=== PATIENT | female | born 1980 | race Caucasian/White ===

== ENCOUNTER 2020-06-18 18:13 | Emergency (ER) | payer SELFPAY ==
[2020-06-18 18:16] VITALS: BP 134/87; PULSE 100; RESP 18; TEMP 36.4; O2SAT 99; BMI 22.3
--- NOTE | 2020-06-18 19:27 | ED_ITS ---
HPI - Skin/Abscess/Foreign Bdy General: Chief complaint: Skin/Abscess/Foreign Body Stated complaint: skin abcess Time Seen by Provider: 06/18/20 19:12 Source: patient Limitations: no limitations History of Present Illness: HPI narrative: Ms. Case is a nice 40-year-old female comes in with a swollen tender area on her left ankle. Is been present there for the past 3 days. She states it started off as a pimple and got progressively worse. She denies any fevers, chills or any other focal complaints. Associated symptoms: Deny chills, fever(s), nausea or vomiting Review of Systems Const: Denies: fever(s), chills, body aches, fatigue, malaise or diaphoresis Eyes: Denies: change in vision, blurry vision, photophobia, eye discomfort, eye discharge or eye redness ENMT: Denies: throat pain, odynophagia, hoarseness, swelling of lips/tongue, ear or mastoid pain, ear discharge, change in hearing or nasal discharge Card: Denies: chest pain, palpitations, irregular heart rhythm, edema, lightheadedness, syncope, pre-syncope, dyspnea on exertion or orthopnea Resp: Denies: dyspnea, productive cough, non-productive cough, wheezing, hemoptysis or chest congestion GI: Denies: abdominal pain, nausea, vomiting, hematemesis, coffee ground emesis, heartburn, diarrhea, constipation, GI cramping, hematochezia or melena : Denies: flank pain, dysuria, urinary frequency, urinary urgency or hematuria Musc: Denies: neck pain, back pain, extremity pain, extremity swelling, joint pain, joint swelling, joint redness, joint warmth or joint stiffness Skin/Breast: Reports: erythema, skin tenderness and other (See HPI); Denies: rash or pruritus Neuro: Denies: headache(s), numbness in extremities, weakness in extremities, sensory changes, lack of coordination, difficulty walking, dizziness, vertigo, confusion, Slurred speech present or seizure-like activity Jacky/Lymph: Denies: easy bruising, easy bleeding, petechiae, purpura or enlarged lymph nodes All/Imm: Denies: urticaria, throat swelling, tongue swelling, facial swelling or acute wheezing PFS ED PFSH: Medical History (Updated 06/18/20 @ 20:02 by Nicolette Hand) Crohn's disease Physical Exam Const: COMMON NORMALS: no acute distress, patient oriented x3, no limitations, healthy appearing and well nourished GENERAL APPEARANCE: cooperative, well kempt and well developed HENMT: COMMON NORMALS: normocephalic, atraumatic, external ears normal, EAC's normal and Normal external nose present HEAD & SCALP: normal to inspection, normocephalic and atraumatic FACE & SINUS: normal facial exam and face symmetric NOSE: Normal external nose present and Normal nares present EXTERNAL EAR: Yes external ears normal EXTERNAL AUDITORY CANAL: EAC's normal MOUTH: Normal oral and palatal mucosa present, lip normal and tongue normal Eye: COMMON NORMALS: Equal, round and reactive pupils present and conjunctivae normal GENERAL EYE: appearance normal, both eyes and all related structures ALIGNMENT: Yes alignment normal PERIORBITAL: periorbital findings normal EYELID: eyelids normal CONJUNCTIVA: Yes conjunctivae normal SCLERA: scler ae normal PUPIL: Yes Equal, round and reactive pupils present Neck/C-Spine: COMMON NORMALS: full ROM, no lymphadenopathy, supple, no meningeal signs and no JVD GENERAL: Yes normal visual inspection and Yes trachea midline Chest: COMMONS NORMALS: normal inspection of the chest and normal palpation of entire chest wall Resp: COMMON NORMALS: normal respiratory effort, No retractions, No use of accessory muscles and clear to auscultation bilaterally EFFORT & INSPECTION: Yes able to speak in complete sentences and Yes symmetric chest movement AUSCULTATION: clear to auscultation bilaterally, no crackles, no rales, no rhonchi and no wheezes Cardio: COMMON NORMALS: no JVD, regular rate, regular rhythm, S1 normal heart sound present and S2 normal heart sound present RATE: regular rate RHYTHM: regular rhythm HEART SOUNDS: S1 normal heart sound present, S2 normal heart sound present, no click, no gallops, no murmurs, no rubs and abnormal split S2 GI: COMMON NORMALS: Soft to palpation and No hepatosplenomegaly present PALPATION: Yes Soft to palpation, No Tenderness to palpation present (GI), No Guarding due to palpation present (GI), No Rigid due to palpation, Yes No hepatosplenomegaly present, No Hernia present, No Palpable mass present and No Pulsatile mass present : COMMON NORMALS: Yes no CVA tenderness BLADDER/KIDNEY EXAM: Yes no CVA tenderness EXTERNAL FEMALE EXAM: No Hernia present Back/Pelvis: COMMON NORMALS: no CVA tenderness, thoracic and lumbar spine normal to inspection, no thoracic nor lumbar tenderness and thoraco-lumbar ROM normal Extremity: COMMON NORMALS: normal to inspection, full ROM, capillary refill normal, no joint enlargement, no clubbing, cyanosis or edema and no calf tend erness Neuro: COMMON NORMALS: patient oriented x3, CN's II-XII intact bilaterally, moves all extremities, no focal motor deficits and no sensory deficits noted MENINGEAL SIGNS: Yes no meningeal signs SPEECH: speech normal Psych: COMMON NORMALS: mental status grossly normal, Normal thought process present, cooperative, normal affect, speech normal and activity/motor behavior normal APPEARANCE: Yes well kempt SPEECH: Yes normal speech THOUGHT PROCESS: Normal thought process present Skin: COMMON NORMALS: turgor normal, no jaundice, no petechiae and no mottling GENERAL SKIN EXAM: turgor normal Procedures Abscess I/D Site: lower extremity Side (if applicable): right Local Anesthetic: lidocaine 1% Amount of anesthesia used (mL): 4 Technique: incised with #11 blade Amount of fluid expressed (mL): 25 Packing used?: iodoform Course Vital Signs: Vital signs: Vital Signs Temperature 97.6 F 06/18/20 18:16 Pulse Rate 100 06/18/20 18:16 Respiratory Rate 18 06/18/20 18:16 Blood Pressure 134/87 06/18/20 18:16 Pulse Oximetry 99 06/18/20 18:16 MDM - Skin/Abscess/Foreign Bdy MDM Narrative: Medical decision making narrative: Patient tolerated procedure well there were no complications. Gave instructions to return in 2 days for wound recheck and she states she understands this and will follow-up as directed or return if needed. This time the patient is feeling better and ready to go home. Discharge Plan Discharge Patient Disposition: Home Clinical Impression: Abscess of skin or subcutaneous tissue Qualifiers: Site of cutaneous abscess: extremity Site of cutaneous abscess of extremity: lower extremity Laterality: right Qualified Code(s): L02.415 - Cutaneous abscess of right lower limb Condition: Stable Prescriptions: [place] 5-325 mg tablet 1 tab PO Q6H PRN (Reason: pain) 5 Days Qty: 12 RF: 0 Zofran 4 mg tablet 4 mg PO Q6H PRN (Reason: nausea and vomiting) Qty: 20 RF: 0 Bactrim DS 800-160 mg tablet 2 tab PO BID 10 Days Qty: 40 RF: 0 Discharge Orders: Discharge Order (Routine); Ordered 06/18/20 Ordered By: Nicolette Hand Referrals: Familia Kwon FNP [Primary Care Provider] - Discharge Diet: Advance as tolerated Discharge Activity: Increase activity as tolerated Patient Instructions: Abscess (ED) Activity Restrictions/Additional Instructions: Please return to the ER immediately for any of the signs or symptoms listed on your discharge instruction sheets, worsening/changing of your symptoms, you are not getting better as quickly as expected, or for ANY other cause or concerns. Please return to the ER in 2 days for recheck of your wound. Return sooner for fever, increased pain, spreading of the redness on your ankle, or for any other cause for concern. Coding Level of Care Code ED Remediation Consultant for Augusto Fwsherwin Exam Comprehensive
[2020-06-18 20:04] VITALS: BP 122/86; PULSE 100; RESP 20
[2020-06-18] MEDS: HYDROcodone-acetaminophen 5-325 mg Tablet 1 TAB PO (20:19)
[2020-06-18] MEDS: ondansetron 4 MG Tablet PO (20:20)
[2020-06-18] MEDS: sulfamethoxazole-trimeth DS 160-800 mg Tablet 2 TAB PO (20:20)
[2020-06-18] MEDS: tetanus-dipt-pertussis 0.5 mL SDV IM (20:35)
[2020-06-18 20:49] VITALS: BP 121/72; PULSE 88; RESP 20; TEMP 36.6; O2SAT 96
== END 2020-06-18 20:50 | disposition home or self-care (01) ==
PROVIDERS: Emergency Provider Emergency Medicine; PCP Nurse Practitioner Family
DX: L02.415 Cutaneous abscess of right lower limb (principal); Z23 Encounter for immunization
CPT/HCPCS: 10060; 12345; 90471; 90715; 99281; 99283; Q0162

== ENCOUNTER 2020-06-20 13:50 | Emergency (ER) | payer SELFPAY ==
[2020-06-20 14:00] VITALS: BP 116/75; PULSE 97; RESP 18; TEMP 36.5; O2SAT 98; BMI 22.3
--- NOTE | 2020-06-20 14:45 | W.ED.WOUNDLC ---
HPI - Wound/Laceration General: Chief Complaint: Wound/Laceration Stated Complaint: wound check Time Seen by Provider: 06/20/20 14:41 Source: patient Limitations: no limitations History of Present Illness: HPI narrative: 40-year-old female who had abscess drained here 2 days ago on her right ankle. Patient states she was told to return for wound check. She did have a packing placed. She had no fever and minimal pain. She currently on Bactrim. Denies any vomiting. She states she is continued to have draining from the wound. Associated symptoms: Denies chills, fever(s), nausea or vomiting Review of Systems Const: Denies: fever(s), chills, body aches or change in appetite Eyes: Denies: blurry vision or eye discomfort ENMT: Denies: throat pain or dental pain Card: Denies: chest pain Resp: Denies: dyspnea GI: Denies: abdominal pain, nausea, vomiting or diarrhea : Denies: dysuria Musc: Denies: neck pain or back pain Skin/Breast: Denies: rash Neuro: Denies: headache(s) Psych: Denies: depression Jacky/Lymph: Denies: easy bruising All/Imm: Denies: urticaria PFSH ED PFSH: Medical History (Updated 06/20/20 @ 14:45 by Kris Hunt MD) Crohn's disease Physical Exam Const: COMMON NORMALS: no acute distress, patient oriented x3 and healthy appearing HENMT: COMMON NORMALS: normocephalic and atraumatic HEAD & SCALP: normocephalic and atraumatic Eye: COMMON NORMALS: Equal, round and reactive pupils present and EOMs intact bilaterally PUPIL: Yes Equal, round and reactive pupils present Neck/C-Spine: COMMON NORMALS: full ROM and supple Chest: COMMONS NORMALS: normal inspection of the chest and normal palpation of entire chest wall Resp: COMMON NORMALS: normal respiratory effort, No retractions, No use of accessory muscles and clear to auscultation bilaterally AUSCULTATION: clear to auscultation bilaterally Cardio: COMMON NORMALS: regular rate, regular rhythm and No murmurs present (Cardio) RATE: regular rate RHYTHM: regular rhythm GI: COMMON NORMALS: Normal to inspection, nondistended, normoactive bowel sounds present, Soft to palpation, non-tender and no masses PALPATION: Yes Soft to palpation Extremity: COMMON NORMALS: normal to inspection and full ROM Neuro: COMMON NORMALS: patient oriented x3, moves all extremities and no focal motor deficits Psych: COMMON NORMALS: mental status grossly normal, Normal thought process present and cooperative THOUGHT PROCESS: Normal thought process present Skin: COMMON NORMALS: no rashes or lesions noted NARRATIVE SKIN EXAM: Abscess to right ankle and has packing in place. I removed the packing wound is open and well-appearing. She has minimal erythema and minimal drainage at this point. GENERAL SKIN EXAM: no rashes or lesions noted Course Vital Signs: Vital signs: Vital Signs Temperature 97.7 F 06/20/20 14:00 Pulse Rate 97 06/20/20 14:00 Respiratory Rate 18 06/20/20 14:00 Blood Pressure 116/75 06/20/20 14:00 Pulse Oximetry 98 06/20/20 14:00 MDM - Wound/Laceration MDM Narrative: Medical decision making narrative: Patient presents with wound check for an abscess. I did remove the packing and will leave it open at this time. She is to do warm soaks and to continue her Bactrim. Wound is healing well and she is to return to the ER if worsening. She understands and agrees to plan. Discharge Plan Discharge Patient Disposition: Home Clinical Impression: Abscess, Encounter for wound re-check Condition: Stable Prescriptions: No [place] 5-325 mg tablet 1 tab PO Q6H PRN (Reason: pain) 5 Days Qty: 12 RF: 0 Zofran 4 mg tablet 4 mg PO Q6H PRN (Reason: nausea and vomiting) Qty: 20 RF: 0 Bactrim DS 800-160 mg tablet 2 tab PO BID 10 Days Qty: 40 RF: 0 Discharge Orders: Discharge Order (Routine); Ordered 06/20/20 Ordered By: Kris Hunt Referrals: Familia Kwon FNP [Primary Care Provider] - 1-3 days Discharge Diet: Advance as tolerated Discharge Activity: Resume usual activity Patient Instructions: Abscess (ED) Coding Level of Care Code ED President [employer] Consulting for Augusto Gonzalez
== END 2020-06-20 14:58 | disposition home or self-care (01) ==
PROVIDERS: Emergency Provider Emergency Medicine; PCP Nurse Practitioner Family
DX: Z48.00 Encounter for change or removal of nonsurgical wound dressing (principal); L02.415 Cutaneous abscess of right lower limb
CPT/HCPCS: 12345; 99281

== ENCOUNTER 2020-08-17 20:21 | Emergency (ER) | payer SELFPAY ==
[2020-08-17 21:00] VITALS: BP 106/63; PULSE 102; RESP 14; TEMP 36.4; O2SAT 97; BMI 19.9
[2020-08-17] MEDS: sulfamethoxazole-trimeth DS 160-800 mg Tablet 1 TAB PO (22:43)
--- NOTE | 2020-08-17 22:50 | ED_ITS ---
HPI - Skin/Abscess/Foreign Bdy General: Chief complaint: Skin/Abscess/Foreign Body Stated complaint: spiderbite Time Seen by Provider: 08/17/20 22:33 History of Present Illness: HPI narrative: She thinks she had a spider bite left upper thigh area near her labia. Says she has a lot of brown recluse is in her house she had a spider bite before. Has been present couple days very sore not really draining MD complaint: insect bite/sting Onset (ago): day(s) Tetanus up to date: yes Location: LLE Severity: mild Severity scale (1-10): 2 Quality: aching Pain Consistency: constant Relieving factors: immobilization Exacerbating factors: movement Context: none Associated symptoms: Reports no associated symptoms; Deny chills or fever(s) Treatments prior to arrival: none Review of Systems Const: Denies: fever(s), chills or body aches Skin/Breast: Reports: other (Points possible bite to left upper groin area. Says she has lot of brown recluse is her house and she thinks that the possibly got bit. Is been present couple days not really draining but is red and very tender.) PFS ED PFSH: Medical History (Updated 08/17/20 @ 22:39 by YUSUF Bailey) Crohn's disease Physical Exam Const: COMMON NORMALS: no acute distress Skin: GENERAL SKIN EXAM: Excoriation (Left upper thigh area near the labia about quarter size more rectangular in shape very red and angry looking there is no abscess or swelling behind it almost resembles a very angry chancre patient denies any chance have an STD. No drainage from it very shiny and wet.) Course Vital Signs: Vital signs: Vital Signs Temperature 97.5 F L 08/17/20 21:00 Pulse Rate 102 H 08/17/20 21:00 Respiratory Rate 14 08/17/20 21:00 Blood Pressure 106/63 08/17/20 21:00 Pulse Oximetry 97 08/17/20 21:00 Discharge Plan Discharge Patient Disposition: Home Clinical Impression: Cellulitis Qualifiers: Site of cellulitis: extremity Site of cellulitis of extremity: lower extremity Laterality: left Qualified Code(s): L03.116 - Cellulitis of left lower limb Condition: Stable Prescriptions: New Bactrim DS 800-160 mg tablet 1 tab PO BID 7 Days Qty: 14 RF: 0 tramadol 50 mg tablet 50 mg PO TID PRN (Reason: pain) Qty: 10 RF: 0 No Action Zofran 4 mg tablet 4 mg PO Q6H PRN (Reason: nausea and vomiting) Qty: 20 RF: 0 Discharge Orders: Discharge Order (Routine); Ordered 08/17/20 Ordered By: Xavier Berg Referrals: Familia Kwon FNP [Primary Care Provider] - Discharge Diet: Usual diet Discharge Activity: Increase activity as tolerated Patient Instructions: Cellulitis (ED), Brown Recluse Spider Bite (ED) Activity Restrictions/Additional Instructions: Follow-up with medical provider as directed. Take medications as prescribed. Return to the ER or your medical provider if condition worsens. Please read and understand discharge instructions. If any questions ask please. Either [facility] for primary care appointment are with the [facility] family practice clinic. Discharge Date/Time: 08/17/20 23:09 Coding Level of Care Code ED Core Placer for Chg Fwd Exam Expanded Problem Focused
== END 2020-08-17 23:09 | disposition home or self-care (01) ==
PROVIDERS: Emergency Provider Nurse Practitioner Family; PCP Nurse Practitioner Family
DX: L03.116 Cellulitis of left lower limb (principal)
CPT/HCPCS: 12345; 99281; 99283

== ENCOUNTER → 2020-11-12 17:48 | Outpatient (BNVA) | payer OTHER, SELFPAY | PROVIDERS: PCP Nurse Practitioner Family; Visit Provider Emergency Medicine | DX: Z20.828 Contact with and (suspected) exposure to other viral communicable diseases (principal); R05 Cough; J32.1 Chronic frontal sinusitis | CPT/HCPCS: 87635 ==

== ENCOUNTER 2021-04-02 16:30 | Emergency (ER) | payer SELFPAY ==
[2021-04-02 16:45] VITALS: BP 95/67; PULSE 85; RESP 13; O2SAT 100; BMI 19.7
--- NOTE | 2021-04-02 16:49 | XRR_ITS ---
PROCEDURE INFORMATION: Exam: XR Chest Exam date and time: 04/02/2021 4:50 PM Age: 41 years old Clinical indication: Cough TECHNIQUE: Imaging protocol: XR of the chest. Views: 1 view. COMPARISON: No relevant prior studies available. FINDINGS: Lungs: Unremarkable. No consolidation. Pleural spaces: Unremarkable. No pleural effusion. No pneumothorax. Heart/Mediastinum: Unremarkable. No cardiomegaly. Bones/joints: Unremarkable. XR/XR chest 1V portable [id number] IMPRESSION: No acute findings.
--- NOTE | 2021-04-02 16:49 | ECG_ITS ---
[facility] Test Date: 2021-04-02 Pat Name: Nette Marks Department: Room: Gender: Female [employer] Librarian: : 1980 Requested By: Elias Melton Order Number: [id number] Sharon MD: YANI ALTMAN Measurements Intervals [place] Rate: 79 P: 66 IN: 116 QRS: 74 QRSD: 76 T: 70 QT: 378 QTc: 435 Interpretive Statements SINUS RHYTHM WITH SHORT IN INTERVAL POSSIBLE LEFT ATRIAL ENLARGEMENT [-0.1mV P WAVE IN V1/V2] No previous ECG available for comparison Electronically Signed On 04-02-2021 20:18:30 CDT by YANI ALTMAN [id number]
--- NOTE | 2021-04-02 16:50 | ED_ITS ---
Documented by User: Elias Melton MD 04/02/21 17:59 HPI - Chest Pain General: Chief Complaint: Chest Pain Stated Complaint: CHEST PAIN Time Seen by Provider: 04/02/21 16:46 History of Present Illness: HPI narrative: This patient is a 41-year-old female who presents to the emergency room for atypical type chest pain issues. Patient describes shortness when she takes a deep breath and has a long history anxiety for which she has been to take hydroxyzine for. Patient states she does not take it because it makes her go to sleep. Patient describes numbness and tingling to her fingers. Patient states that she has had this intermittently for some time but seem to be worse over the past day. Patient states it is pinpoint underneath the left breast is sharp when she takes a deep breath. Will do medical evaluation treat as needed. complaint: chest pain Onset: during rest Pain location: left chest Pain radiation: none Severity: similar to previous episodes Quality: sharp Relieving factors: nothing Associated symptoms: Deny abdominal pain, dyspnea, fever(s), nausea, palpitations or vomiting Review of Systems General: Reports: 10 or more systems reviewed and unremarkable except in HPI and below Const: Denies: fever(s), chills, body aches or fatigue Eyes: Denies: change in vision or blurry vision ENMT: Denies: throat pain, hoarseness or mouth pain Card: Reports: chest pain; Denies: palpitations, irregular heart rhythm, edema, swelling of feet/ankles or lightheadedness Resp: Denies: dyspnea, productive cough, non-productive cough, wheezing or pain on inspiration GI: Denies: abdominal pain, nausea or vomiting : Denies: flank pain, difficulty voiding, dysuria, urinary frequency, urinary urgency or urinary hesitancy Musc: Denies: neck pain, back pain, extremity pain, extremity swelling, joint pain, joint swelling, joint redness, joint warmth or limited range of motion Skin/Breast: Denies: rash, pruritus, erythema or skin tenderness Neuro: Denies: headache(s), numbness in extremities or weakness in extremities Psych: Denies: anxiety or depression PFSH ED PFSH: Medical History Anxiety Crohn's disease Social History Smoking and tobacco status: current every day smoker cigarettes Packs smoked per day: 0.25 Alcohol intake: never History of recent travel: No Female Reproductive History: Spontaneous abortions: No Physical Exam Const: COMMON NORMALS: no acute distress, average body habitus, patient oriented x3, no limitations, healthy appearing, alert and well nourished HENMT: COMMON NORMALS: normocephalic, atraumatic, hearing grossly normal bilaterally, external ears normal, EAC's normal, TM's normal bilaterally, Normal external nose present, Normal nasal mucous membranes and turbinates present, moist oral mucous membranes, oropharynx normal, dentition normal and gingiva normal HEAD & SCALP: normocephalic and atraumatic NOSE: Normal external nose present and Normal nasal mucous membranes and turbinates present EXTERNAL EAR: Yes external ears normal EXTERNAL AUDITORY CANAL: EAC's normal TYMPANIC MEMBRANE: TM's normal bilaterally Neck/C-Spine: COMMON NORMALS: full ROM, no lymphadenopathy, supple, no meningeal signs, no JVD, Thyroid normal and No carotid bruits THYROID: Thyroid normal Chest: COMMONS NORMALS: normal inspection of the chest, normal palpation of entire chest wall, normal inspection of the breasts and normal palpation of the breasts Breast/axilla inspection: Yes normal inspection of the breasts BREAST/AXILLA PALPATION: Yes normal palpation of the breasts Resp: COMMON NORMALS: normal respiratory effort, No retractions, No use of accessory muscles, clear to auscultation bilaterally and percussion normal AUSCULTATION: clear to auscultation bilaterally PERCUSSION: percussion normal Cardio: COMMON NORMALS: no JVD, regular rate, regular rhythm, S1 normal heart sound present, S2 normal heart sound present, No gallops present (Cardio), No clicks present (Cardio), No murmurs present (Cardio), No rub (Cardio) and Peripheral pulses 2+ throughout RATE: regular rate RHYTHM: regular rhythm HEART SOUNDS: S1 normal heart sound present and S2 normal heart sound present PERIPHERAL PULSES: Peripheral pulses 2+ throughout GI: COMMON NORMALS: Normal to inspection, nondistended, normoactive bowel sounds present, Soft to palpation, non-tender, No hepatosplenomegaly present, no masses and no bruits PALPATION: Yes Soft to palpation and Yes No hepatosplenomegaly present : COMMON NORMALS: Yes no CVA tenderness, Yes normal external appearance, Yes normal appearance of the vagina, Yes normal appearance of the cervix, Yes normal bimanual exam, Yes No adnexal tenderness and Yes no masses BLADDER/KIDNEY EXAM: Yes no CVA tenderness BIMANUAL EXAM - VAGINA & UTERUS: Yes normal bimanual exam Back/Pelvis: COMMON NORMALS: no CVA tenderness, thoracic and lumbar spine normal to inspection, no thoracic nor lumbar tenderness, thoraco-lumbar ROM normal and straight leg raise negative bilaterally Extremity: COMMON NORMALS: normal to inspection, full ROM, capillary refill normal, no joint enlargement, no clubbing, cyanosis or edema, no calf tenderness and no pedal edema Neuro: COMMON NORMALS: patient oriented x3 SENSORIUM/ORIENTATION: Yes alert MENINGEAL SIGNS: Yes no meningeal signs Course Consultations: Consultation #1: Care transferred to Dr. Gamez for shift change Time: 17:58 Vital Signs: Vital signs: Vital Signs Pulse Rate 96 04/02/21 20:03 Respiratory Rate 20 H 04/02/21 20:03 Blood Pressure 98/64 04/02/21 20:03 Pulse Oximetry 89 L 04/02/21 20:03 MDM - Chest Pain Lab Data: Labs: Lab Results 04/02/21 04/02/21 04/02/21 Range/Units 16:54 18:05 18:05 WBC 8.5 (4.0-10.0) 10^3/ uL RBC 4.90 (4.1-5.3) 10^6/u L Hgb 14.1 (11.5-15.3) g/dL Hct 42.4 (37.0-47.0) % MCV 86.5 (81-99) fL MCH 28.8 (28.0-34.0) pg MCHC 33.3 (30.0-36.0) g/dL RDW 14.9 (12.1-15.1) % Plt Count 254 (130-400) 10^3/c mm MPV 10.0 (7.4-10.4) fL Neut % (Auto) 48.9 % Lymph % (Auto) 39.5 % Arthur % (Auto) 6.6 % Eos % (Auto) 4.1 % Baso % (Auto) 0.7 % Neut # (Auto) 4.13 (1.8-7.7) 10^3/u L Lymph # (Auto) 3.3 (0.8-4.8) 10^3/u L Arthur # (Auto) 0.6 (0.2-0.9) 10^3/u L Eos # (Auto) 0.4 (0.0-0.8) 10^3/u L Baso # (Auto) 0.1 (0.0-0.1) 10^3/u L Nucleated RBC % (a uto) 0 % Nucleated RBCs # 0.0 /100WBC D-Dimer Cancelled Specimen Type Arterial Sample Site Radial, left ABG pH 7.45 (7.35-7.45) ABG pCO2 38.0 (35-45) mmHg ABG pO2 205.0 H (80.0-100.0) mmH g ABG HCO3 26.5 H (22-26) mmol/L ABG O2 Saturation 99.9 ABG Base Excess 2.5 H (-2.0-2.0) mmol/ L Aashish Test Pos A-a O2 Gradient 0.0 L (5-10) mmHg Hematocrit 41.2 (37-47) % Hgb O2 Saturation 97.0 (95-100) % Carboxyhemoglobin 1.9 (0.4-20.1) %THgb Methemoglobin 1.0 (0.4-1.5) % Total Hemoglobin 13.4 (12-16) g/dL Sodium 140.0 (131-143) mmol/L Potassium 4.1 (3.5-5.0) mmol/L Glucose 104.0 (70-115) mg/dL Ionized Calcium 1.2 (1.1-1.4) mmol/L O2 Delivery Device Nc FiO2 36.0 % Secondary Connector Armature ID Monro Chloride (98-107) mmol/L Carbon Dioxide (22-29) mmol/L Anion Gap (5-19) BUN (6-20) mg/dL Creatinine (0.5-0.9) mg/dL GFR Calculation (90-130) mL/min Calculated Osmolal ity (285-295) mOsm/k g Calcium (8.5-10.5) mg/dL Total Bilirubin (0.15-1.2) mg/dL AST (0-32) U/L ALT (0-33) U/L Alkaline Phosphata se (35-105) IU/L Troponin T Baselin e (0-10) ng/L Total Protein (6.6-8.7) g/dL Albumin (3.5-5.2) g/dL Globulin (1.3-4.6) g/dL Urine Color (Yellow) Urine Appearance (CLEAR) Urine pH (5-7) Ur Specific Gravit y (1.005-1.030) Urine Protein (Negative) Urine Glucose (UA) (Normal) Urine Ketones (Negative) Urine Blood (Negative) Urine Nitrate (Negative) Urine Bilirubin (Negative) Urine Urobilinogen (Negative) mg/dL Ur Leukocyte Josy ase (Negative) Urine Opiates Scre en (Negative) ng/mL Ur Barbiturates Sc reen (Negative) ng/mL Ur Phencyclidine S crn (Negative) ng/mL Ur Amphetamines Sc reen (Negative) ng/mL U Benzodiazepines Scrn (Negative) ng/mL Urine Cocaine Scre en (Negative) ng/mL U Marijuana (THC) Screen (Negative) ng/mL Ethyl Alcohol (0-10) mg/dL 04/02/21 04/02/21 04/02/21 Range/Units 18:05 18:05 18:09 WBC (4.0-10.0) 10^3/ uL RBC (4.1-5.3) 10^6/u L Hgb (11.5-15.3) g/dL Hct (37.0-47.0) % MCV (81-99) fL MCH (28.0-34.0) pg MCHC (30.0-36.0) g/dL RDW (12.1-15.1) % Plt Count (130-400) 10^3/c mm MPV (7.4-10.4) fL Neut % (Auto) % Lymph % (Auto) % Arthur % (Auto) % Eos % (Auto) % Baso % (Auto) % Neut # (Auto) (1.8-7.7) 10^3/u L Lymph # (Auto) (0.8-4.8) 10^3/u L Arthur # (Auto) (0.2-0.9) 10^3/u L Eos # (Auto) (0.0-0.8) 10^3/u L Baso # (Auto) (0.0-0.1) 10^3/u L Nucleated RBC % (a uto) % Nucleated RBCs # /100WBC D-Dimer Specimen Type Sample Site ABG pH (7.35-7.45) ABG pCO2 (35-45) mmHg ABG pO2 (80.0-100.0) mmH g ABG HCO3 (22-26) mmol/L ABG O2 Saturation ABG Base Excess (-2.0-2.0) mmol/ L Aashish Test A-a O2 Gradient (5-10) mmHg Hematocrit (37-47) % Hgb O2 Saturation (95-100) % Carboxyhemoglobin (0.4-20.1) %THgb Methemoglobin (0.4-1.5) % Total Hemoglobin (12-16) g/dL Sodium 137 (131-143) mmol/L Potassium 4.2 (3.5-5.0) mmol/L Glucose 105 (70-115) mg/dL Ionized Calcium (1.1-1.4) mmol/L O2 Delivery Device FiO2 % Secondary Connector Armature ID Chloride 101 (98-107) mmol/L Carbon Dioxide 27 (22-29) mmol/L Anion Gap 13.2 (5-19) BUN 16 (6-20) mg/dL Creatinine 0.5 (0.5-0.9) mg/dL GFR Calculation 136.6 H (90-130) mL/min Calculated Osmolal ity 286 (285-295) mOsm/k g Calcium 8.4 L (8.5-10.5) mg/dL Total Bilirubin 0.2 (0.15-1.2) mg/dL AST 24 (0-32) U/L ALT 16 (0-33) U/L Alkaline Phosphata se 91 (35-105) IU/L Troponin T Baselin e 6 (0-10) ng/L Total Protein 6.7 (6.6-8.7) g/dL Albumin 4.1 (3.5-5.2) g/dL Globulin 2.6 (1.3-4.6) g/dL Urine Color Straw (Yellow) Urine Appearance Clear (CLEAR) Urine pH 5 (5-7) Ur Specific Gravit y 1.025 (1.005-1.030) Urine Protein Neg (Negative) Urine Glucose (UA) Norm (Normal) Urine Ketones Negative (Negative) Urine Blood Neg (Negative) Urine Nitrate Negative (Negative) Urine Bilirubin 1+ H (Negative) Urine Urobilinogen 1 H (Negative) mg/dL Ur Leukocyte Josy ase Negative (Negative) Urine Opiates Scre en (Negative) ng/mL Ur Barbiturates Sc reen (Negative) ng/mL Ur Phencyclidine S crn (Negative) ng/mL Ur Amphetamines Sc reen (Negative) ng/mL U Benzodiazepines Scrn (Negative) ng/mL Urine Cocaine Scre en (Negative) ng/mL U Marijuana (THC) Screen (Negative) ng/mL Ethyl Alcohol < 10 (0-10) mg/dL 04/02/21 Range/Units 18:09 WBC (4.0-10.0) 10^3/ uL RBC (4.1-5.3) 10^6/u L Hgb (11.5-15.3) g/dL Hct (37.0-47.0) % MCV (81-99) fL MCH (28.0-34.0) pg MCHC (30.0-36.0) g/dL RDW (12.1-15.1) % Plt Count (130-400) 10^3/c mm MPV (7.4-10.4) fL Neut % (Auto) % Lymph % (Auto) % Arthur % (Auto) % Eos % (Auto) % Baso % (Auto) % Neut # (Auto) (1.8-7.7) 10^3/u L Lymph # (Auto) (0.8-4.8) 10^3/u L Arthur # (Auto) (0.2-0.9) 10^3/u L Eos # (Auto) (0.0-0.8) 10^3/u L Baso # (Auto) (0.0-0.1) 10^3/u L Nucleated RBC % (a uto) % Nucleated RBCs # /100WBC D-Dimer Specimen Type Sample Site ABG pH (7.35-7.45) ABG pCO2 (35-45) mmHg ABG pO2 (80.0-100.0) mmH g ABG HCO3 (22-26) mmol/L ABG O2 Saturation ABG Base Excess (-2.0-2.0) mmol/ L Aashish Test A-a O2 Gradient (5-10) mmHg Hematocrit (37-47) % Hgb O2 Saturation (95-100) % Carboxyhemoglobin (0.4-20.1) %THgb Methemoglobin (0.4-1.5) % Total Hemoglobin (12-16) g/dL Sodium (131-143) mmol/L Potassium (3.5-5.0) mmol/L Glucose (70-115) mg/dL Ionized Calcium (1.1-1.4) mmol/L O2 Delivery Device FiO2 % Secondary Connector Armature ID Chloride (98-107) mmol/L Carbon Dioxide (22-29) mmol/L Anion Gap (5-19) BUN (6-20) mg/dL Creatinine (0.5-0.9) mg/dL GFR Calculation (90-130) mL/min Calculated Osmolal ity (285-295) mOsm/k g Calcium (8.5-10.5) mg/dL Total Bilirubin (0.15-1.2) mg/dL AST (0-32) U/L ALT (0-33) U/L Alkaline Phosphata se (35-105) IU/L Troponin T Baselin e (0-10) ng/L Total Protein (6.6-8.7) g/dL Albumin (3.5-5.2) g/dL Globulin (1.3-4.6) g/dL Urine Color (Yellow) Urine Appearance (CLEAR) Urine pH (5-7) Ur Specific Gravit y (1.005-1.030) Urine Protein (Negative) Urine Glucose (UA) (Normal) Urine Ketones (Negative) Urine Blood (Negative) Urine Nitrate (Negative) Urine Bilirubin (Negative) Urine Urobilinogen (Negative) mg/dL Ur Leukocyte Josy ase (Negative) Urine Opiates Scre en Negative (Negative) ng/mL Ur Barbiturates Sc reen Negative (Negative) ng/mL Ur Phencyclidine S crn Negative (Negative) ng/mL Ur Amphetamines Sc reen Positive H (Negative) ng/mL U Benzodiazepines Scrn Negative (Negative) ng/mL Urine Cocaine Scre en Negative (Negative) ng/mL U Marijuana (THC) Screen Positive H (Negative) ng/mL Ethyl Alcohol (0-10) mg/dL EKG Data^: EKG 1: Attestation: I personally reviewed and interpreted this EKG as follows: EKG interpretation date: 04/02/21 EKG interpretation time: 17:00 Prior EKG tracings: not available for review Interpretation: Normal sinus rhythm heart rate 79 nonspecific EKG changes. Discharge Plan Discharge Patient Disposition: Home Clinical Impression: Anxiety, Atypical chest pain Condition: Stable Prescriptions: New ketorolac 10 mg tablet 10 mg PO TID PRN (Reason: pain) Qty: 10 RF: 0 No Action hydroxyzine HCl 25 mg tablet 25 mg PO TID PRN (Reason: anxiety) Qty: 20 RF: 0 Discharge Orders: Discharge ED (Routine); Ordered 04/02/21 Ordered By: Jon Gamez Referrals: Familia Kwon FNP [Primary Care Provider] - 4-7 days Discharge Diet: Advance as tolerated Discharge Activity: Resume usual activity Patient Instructions: Chest Pain (ED) Activity Restrictions/Additional Instructions: Medication as directed for chest wall pain. You may return for worsening pain despite treatment, shortness of breath, fever greater than 100, vomiting, other concerning symptoms. The use of stimulant medications may exacerbate chest pain. Stand Alone Forms: Work/School Release Coding Level of Care Code ED Bin Worker for Chg Fwd Exam Comprehensive Documented by User: Jon Gamez DO 04/02/21 20:37 HPI - Chest Pain General: Chief Complaint: Chest Pain Stated Complaint: CHEST PAIN Time Seen by Provider: 04/02/21 16:46 PFSH ED PFSH: Medical History Anxiety Crohn's disease Social History Smoking and tobacco status: current every day smoker cigarettes Packs smoked per day: 0.25 Alcohol intake: never History of recent travel: No Course Vital Signs: Vital signs: Vital Signs Pulse Rate 96 04/02/21 20:03 Respiratory Rate 20 H 04/02/21 20:03 Blood Pressure 98/64 04/02/21 20:03 Pulse Oximetry 89 L 04/02/21 20:03 MDM - Chest Pain MDM Narrative: Medical decision making narrative: 41-year-old female presents with atypical chest pain. She was checked out to me by Dr. Melton at shift change. Heart rate 79. Oxygen saturation 99. Her EKG shows a normal sinus rhythm with normal axis. She has been nontachycardic. Nonhypoxic. Her labs are normal including a troponin of 6. Her urine is positive for marijuana and amphetamines. Her pain is reproducible to some degree. She is very anxious as well, and this may be playing a role. She will be placed on anti-inflammatories Lab Data: Labs: Lab Results 04/02/21 04/02/21 04/02/21 Range/Units 16:54 18:05 18:05 WBC 8.5 (4.0-10.0) 10^3/ uL RBC 4.90 (4.1-5.3) 10^6/u L Hgb 14.1 (11.5-15.3) g/dL Hct 42.4 (37.0-47.0) % MCV 86.5 (81-99) fL MCH 28.8 (28.0-34.0) pg MCHC 33.3 (30.0-36.0) g/dL RDW 14.9 (12.1-15.1) % Plt Count 254 (130-400) 10^3/c mm MPV 10.0 (7.4-10.4) fL Neut % (Auto) 48.9 % Lymph % (Auto) 39.5 % Arthur % (Auto) 6.6 % Eos % (Auto) 4.1 % Baso % (Auto) 0.7 % Neut # (Auto) 4.13 (1.8-7.7) 10^3/u L Lymph # (Auto) 3.3 (0.8-4.8) 10^3/u L Arthur # (Auto) 0.6 (0.2-0.9) 10^3/u L Eos # (Auto) 0.4 (0.0-0.8) 10^3/u L Baso # (Auto) 0.1 (0.0-0.1) 10^3/u L Nucleated RBC % (a uto) 0 % Nucleated RBCs # 0.0 /100WBC D-Dimer Cancelled Specimen Type Arterial Sample Site Radial, left ABG pH 7.45 (7.35-7.45) ABG pCO2 38.0 (35-45) mmHg ABG pO2 205.0 H (80.0-100.0) mmH g ABG HCO3 26.5 H (22-26) mmol/L ABG O2 Saturation 99.9 ABG Base Excess 2.5 H (-2.0-2.0) mmol/ L Aashish Test Pos A-a O2 Gradient 0.0 L (5-10) mmHg Hematocrit 41.2 (37-47) % Hgb O2 Saturation 97.0 (95-100) % Carboxyhemoglobin 1.9 (0.4-20.1) %THgb Methemoglobin 1.0 (0.4-1.5) % Total Hemoglobin 13.4 (12-16) g/dL Sodium 140.0 (131-143) mmol/L Potassium 4.1 (3.5-5.0) mmol/L Glucose 104.0 (70-115) mg/dL Ionized Calcium 1.2 (1.1-1.4) mmol/L O2 Delivery Device Nc FiO2 36.0 % Secondary Connector Armature ID Monro Chloride (98-107) mmol/L Carbon Dioxide (22-29) mmol/L Anion Gap (5-19) BUN (6-20) mg/dL Creatinine (0.5-0.9) mg/dL GFR Calculation (90-130) mL/min Calculated Osmolal ity (285-295) mOsm/k g Calcium (8.5-10.5) mg/dL Total Bilirubin (0.15-1.2) mg/dL AST (0-32) U/L ALT (0-33) U/L Alkaline Phosphata se (35-105) IU/L Troponin T Baselin e (0-10) ng/L Total Protein (6.6-8.7) g/dL Albumin (3.5-5.2) g/dL Globulin (1.3-4.6) g/dL Urine Color (Yellow) Urine Appearance (CLEAR) Urine pH (5-7) Ur Specific Gravit y (1.005-1.030) Urine Protein (Negative) Urine Glucose (UA) (Normal) Urine Ketones (Negative) Urine Blood (Negative) Urine Nitrate (Negative) Urine Bilirubin (Negative) Urine Urobilinogen (Negative) mg/dL Ur Leukocyte Josy ase (Negative) Urine Opiates Scre en (Negative) ng/mL Ur Barbiturates Sc reen (Negative) ng/mL Ur Phencyclidine S crn (Negative) ng/mL Ur Amphetamines Sc reen (Negative) ng/mL U Benzodiazepines Scrn (Negative) ng/mL Urine Cocaine Scre en (Negative) ng/mL U Marijuana (THC) Screen (Negative) ng/mL Ethyl Alcohol (0-10) mg/dL 04/02/21 04/02/21 04/02/21 Range/Units 18:05 18:05 18:09 WBC (4.0-10.0) 10^3/ uL RBC (4.1-5.3) 10^6/u L Hgb (11.5-15.3) g/dL Hct (37.0-47.0) % MCV (81-99) fL MCH (28.0-34.0) pg MCHC (30.0-36.0) g/dL RDW (12.1-15.1) % Plt Count (130-400) 10^3/c mm MPV (7.4-10.4) fL Neut % (Auto) % Lymph % (Auto) % Arthur % (Auto) % Eos % (Auto) % Baso % (Auto) % Neut # (Auto) (1.8-7.7) 10^3/u L Lymph # (Auto) (0.8-4.8) 10^3/u L Arthur # (Auto) (0.2-0.9) 10^3/u L Eos # (Auto) (0.0-0.8) 10^3/u L Baso # (Auto) (0.0-0.1) 10^3/u L Nucleated RBC % (a uto) % Nucleated RBCs # /100WBC D-Dimer Specimen Type Sample Site ABG pH (7.35-7.45) ABG pCO2 (35-45) mmHg ABG pO2 (80.0-100.0) mmH g ABG HCO3 (22-26) mmol/L ABG O2 Saturation ABG Base Excess (-2.0-2.0) mmol/ L Aashish Test A-a O2 Gradient (5-10) mmHg Hematocrit (37-47) % Hgb O2 Saturation (95-100) % Carboxyhemoglobin (0.4-20.1) %THgb Methemoglobin (0.4-1.5) % Total Hemoglobin (12-16) g/dL Sodium 137 (131-143) mmol/L Potassium 4.2 (3.5-5.0) mmol/L Glucose 105 (70-115) mg/dL Ionized Calcium (1.1-1.4) mmol/L O2 Delivery Device FiO2 % Secondary Connector Armature ID Chloride 101 (98-107) mmol/L Carbon Dioxide 27 (22-29) mmol/L Anion Gap 13.2 (5-19) BUN 16 (6-20) mg/dL Creatinine 0.5 (0.5-0.9) mg/dL GFR Calculation 136.6 H (90-130) mL/min Calculated Osmolal ity 286 (285-295) mOsm/k g Calcium 8.4 L (8.5-10.5) mg/dL Total Bilirubin 0.2 (0.15-1.2) mg/dL AST 24 (0-32) U/L ALT 16 (0-33) U/L Alkaline Phosphata se 91 (35-105) IU/L Troponin T Baselin e 6 (0-10) ng/L Total Protein 6.7 (6.6-8.7) g/dL Albumin 4.1 (3.5-5.2) g/dL Globulin 2.6 (1.3-4.6) g/dL Urine Color Straw (Yellow) Urine Appearance Clear (CLEAR) Urine pH 5 (5-7) Ur Specific Gravit y 1.025 (1.005-1.030) Urine Protein Neg (Negative) Urine Glucose (UA) Norm (Normal) Urine Ketones Negative (Negative) Urine Blood Neg (Negative) Urine Nitrate Negative (Negative) Urine Bilirubin 1+ H (Negative) Urine Urobilinogen 1 H (Negative) mg/dL Ur Leukocyte Josy ase Negative (Negative) Urine Opiates Scre en (Negative) ng/mL Ur Barbiturates Sc reen (Negative) ng/mL Ur Phencyclidine S crn (Negative) ng/mL Ur Amphetamines Sc reen (Negative) ng/mL U Benzodiazepines Scrn (Negative) ng/mL Urine Cocaine Scre en (Negative) ng/mL U Marijuana (THC) Screen (Negative) ng/mL Ethyl Alcohol < 10 (0-10) mg/dL 04/02/21 Range/Units 18:09 WBC (4.0-10.0) 10^3/ uL RBC (4.1-5.3) 10^6/u L Hgb (11.5-15.3) g/dL Hct (37.0-47.0) % MCV (81-99) fL MCH (28.0-34.0) pg MCHC (30.0-36.0) g/dL RDW (12.1-15.1) % Plt Count (130-400) 10^3/c mm MPV (7.4-10.4) fL Neut % (Auto) % Lymph % (Auto) % Arthur % (Auto) % Eos % (Auto) % Baso % (Auto) % Neut # (Auto) (1.8-7.7) 10^3/u L Lymph # (Auto) (0.8-4.8) 10^3/u L Arthur # (Auto) (0.2-0.9) 10^3/u L Eos # (Auto) (0.0-0.8) 10^3/u L Baso # (Auto) (0.0-0.1) 10^3/u L Nucleated RBC % (a uto) % Nucleated RBCs # /100WBC D-Dimer Specimen Type Sample Site ABG pH (7.35-7.45) ABG pCO2 (35-45) mmHg ABG pO2 (80.0-100.0) mmH g ABG HCO3 (22-26) mmol/L ABG O2 Saturation ABG Base Excess (-2.0-2.0) mmol/ L Aashish Test A-a O2 Gradient (5-10) mmHg Hematocrit (37-47) % Hgb O2 Saturation (95-100) % Carboxyhemoglobin (0.4-20.1) %THgb Methemoglobin (0.4-1.5) % Total Hemoglobin (12-16) g/dL Sodium (131-143) mmol/L Potassium (3.5-5.0) mmol/L Glucose (70-115) mg/dL Ionized Calcium (1.1-1.4) mmol/L O2 Delivery Device FiO2 % Secondary Connector Armature ID Chloride (98-107) mmol/L Carbon Dioxide (22-29) mmol/L Anion Gap (5-19) BUN (6-20) mg/dL Creatinine (0.5-0.9) mg/dL GFR Calculation (90-130) mL/min Calculated Osmolal ity (285-295) mOsm/k g Calcium (8.5-10.5) mg/dL Total Bilirubin (0.15-1.2) mg/dL AST (0-32) U/L ALT (0-33) U/L Alkaline Phosphata se (35-105) IU/L Troponin T Baselin e (0-10) ng/L Total Protein (6.6-8.7) g/dL Albumin (3.5-5.2) g/dL Globulin (1.3-4.6) g/dL Urine Color (Yellow) Urine Appearance (CLEAR) Urine pH (5-7) Ur Specific Gravit y (1.005-1.030) Urine Protein (Negative) Urine Glucose (UA) (Normal) Urine Ketones (Negative) Urine Blood (Negative) Urine Nitrate (Negative) Urine Bilirubin (Negative) Urine Urobilinogen (Negative) mg/dL Ur Leukocyte Josy ase (Negative) Urine Opiates Scre en Negative (Negative) ng/mL Ur Barbiturates Sc reen Negative (Negative) ng/mL Ur Phencyclidine S crn Negative (Negative) ng/mL Ur Amphetamines Sc reen Positive H (Negative) ng/mL U Benzodiazepines Scrn Negative (Negative) ng/mL Urine Cocaine Scre en Negative (Negative) ng/mL U Marijuana (THC) Screen Positive H (Negative) ng/mL Ethyl Alcohol (0-10) mg/dL Discharge Plan Discharge Patient Disposition: Home Clinical Impression: Anxiety, Atypical chest pain Condition: Stable Prescriptions: New ketorolac 10 mg tablet 10 mg PO TID PRN (Reason: pain) Qty: 10 RF: 0 No Action hydroxyzine HCl 25 mg tablet 25 mg PO TID PRN (Reason: anxiety) Qty: 20 RF: 0 Discharge Orders: Discharge ED (Routine); Ordered 04/02/21 Ordered By: Jon Gamez Referrals: Familia Kwon FNP [Primary Care Provider] - 4-7 days Discharge Diet: Advance as tolerated Discharge Activity: Resume usual activity Patient Instructions: Chest Pain (ED) Activity Restrictions/Additional Instructions: Medication as directed for chest wall pain. You may return for worsening pain despite treatment, shortness of breath, fever greater than 100, vomiting, other concerning symptoms. The use of stimulant medications may exacerbate chest pain. Stand Alone Forms: Work/School Release Coding Level of Care Code ED Bin Worker for Chg Fwd Exam Comprehensive
[2021-04-02 17:07] LABS: ABG PH Result 7.45 (7.35-7.45); Arterial Blood Gas Hematocrit 41.2 % (37-47); Base Excess ABG 2.5 mmol/L (-2.0-2.0); Blood Gas Allen Test Pos; Blood Gas Operator Identificat MONRO; Blood Gas Sample Site Radial, left; Blood Gas Sample Type Arterial; Carboxyhemoglobin 1.9 %THgb (0.4-20.1); HCO3 ABG 26.5 mmol/L (22-26); Ionized Calcium Level - ABG 1.2 mmol/L (1.1-1.4); Oxygen Device NC; Oxygen Saturation ABG 99.9; Potassium Level - ABG 4.1 mmol/L (3.5-5.0); Total Hemoglobin 13.4 g/dL (12-16)
[2021-04-02 17:58] VITALS: BP 95/68; PULSE 86; RESP 20; O2SAT 99
[2021-04-02 18:16] LABS: Basophils # 0.1 10^3/uL (0.0-0.1); Basophils % 0.7 %; Eosinophils # 0.4 10^3/uL (0.0-0.8); Eosinophils % 4.1 %; Hematocrit 42.4 % (37.0-47.0); Hemoglobin 14.1 g/dL (11.5-15.3); Lymphocytes # 3.3 10^3/uL (0.8-4.8); Lymphocytes % 39.5 %; Mean Corpuscular HGB Conc 33.3 g/dL (30.0-36.0); Mean Corpuscular Hemoglobin 28.8 pg (28.0-34.0); Mean Corpuscular Volume 86.5 fL (81-99); Monocytes # 0.6 10^3/uL (0.2-0.9); Monocytes % 6.6 %; Neutrophils # 4.13 10^3/uL (1.8-7.7); Neutrophils % 48.9 %; Nucleated Red Blood Cells % 0 %; Platelet Count 254 10^3/cmm (130-400); Red Cell Distribution Width 14.9 % (12.1-15.1); White Blood Count 8.5 10^3/uL (4.0-10.0)
[2021-04-02 18:31] LABS: Add Urine Microscopic? NO; Charge for UA Resulting for Rev
[2021-04-02 18:38] LABS: Bilirubin Urine 1+ (Negative); Blood Urine Neg (Negative); Glucose Urine UA Norm (Normal); Ketones Urine Negative (Negative); Leukocyte Esterase Urine Negative (Negative); Nitrate Urine Negative (Negative); Protein Urine Neg (Negative); Specific Gravity, Urine 1.025 (1.005-1.030); Urine Appearance Clear (CLEAR); Urine Color Straw (Yellow); Urobilinogen Urine 1 mg/dL (Negative); pH Urine 5 (5-7)
[2021-04-02 18:39] LABS: Troponin(5th) Baseline 6 ng/L (0-10)
[2021-04-02 18:41] LABS: Alanine Aminotransferase 16 U/L (0-33); Albumin Level 4.1 g/dL (3.5-5.2); Alkaline Phosphatase 91 IU/L (35-105); Anion Gap 13.2 (5-19); Aspartate Amino Transferase 24 U/L (0-32); Blood Urea Nitrogen 16 mg/dL (6-20); Calcium 8.4 mg/dL (8.5-10.5); Carbon Dioxide 27 mmol/L (22-29); Chloride 101 mmol/L (98-107); Globulin 2.6 g/dL (1.3-4.6); Glomerular Filtration Rate 136.6 mL/min (90-130); Glucose 105 mg/dL (65-115); Osmolality Calculated 286 mOsm/kg (285-295); Potassium 4.2 mmol/L (3.5-5.1); Sodium 137 mmol/L (136-145); Total Bilirubin 0.2 mg/dL (0.15-1.2); Total Protein 6.7 g/dL (6.6-8.7)
[2021-04-02] MEDS: sodium chloride 0.9% 500 ML IV (18:41)
[2021-04-02 18:46] LABS: Amphetamines Screen Urine Positive (Negative); Barbiturates Screen Urine Negative (Negative); Benzodiazepines Screen Urine Negative (Negative); Cocaine Screen Urine Negative (Negative); Opiate Screen Urine Negative (Negative); PCP Screen Urine Negative (Negative); THC Screen Urine Positive (Negative)
[2021-04-02 18:57] LABS: Alcohol Level < 10 mg/dL (0-10)
[2021-04-02 18:58] VITALS: PULSE 81; RESP 22; O2SAT 99
[2021-04-02 20:03] VITALS: BP 98/64; PULSE 96; RESP 20; O2SAT 89
== END 2021-04-02 20:05 | disposition home or self-care (01) ==
PROVIDERS: Emergency Medicine; Emergency Provider Emergency Medicine; PCP Nurse Practitioner Family
DX: R07.89 Other chest pain (principal); F41.9 Anxiety disorder, unspecified; F17.210 Nicotine dependence, cigarettes, uncomplicated
CPT/HCPCS: 36600; 71045; 80051; 80053; 80306; 80307; 81003; 82330; 82805; 84484; 85025; 93005; 96360; 99284; J7040

== ENCOUNTER 2021-05-21 18:44 | Emergency (ER) | payer SELFPAY ==
[2021-05-21 18:45] VITALS: BP 156/99; PULSE 108; RESP 18; TEMP 37.1; O2SAT 99; BMI 19.1
[2021-05-21 18:53] VITALS: BP 156/98; PULSE 108; RESP 18; O2SAT 100
--- NOTE | 2021-05-21 18:54 | W.ED.ALLEREA ---
HPI - Allergic Reaction General: Chief complaint: Allergic Reaction Stated complaint: ALLERGIC REACTION Time Seen by Provider: 05/21/21 18:52 Source: patient and EMS Mode of arrival: EMS Limitations: no limitations History of Present Illness: HPI narrative: 41-year-old female states that she has had rash to bilateral arms over the last day with severe pruritus. She states that she is came in contact with nothing that she knows of that she is allergic to. She also appears very anxious here. She denies any shortness of breath and has had no difficulty breathing here. Denies any pain anywhere Associated symptoms: Deny abdominal pain, nausea or vomiting Review of Systems Const: Denies: fever(s), chills, body aches or change in appetite Eyes: Denies: blurry vision or eye discomfort ENMT: Denies: throat pain or dental pain Card: Denies: chest pain Resp: Denies: dyspnea GI: Denies: abdominal pain, nausea, vomiting or diarrhea : Denies: dysuria Musc: Denies: neck pain or back pain Skin/Breast: Reports: rash and pruritus Neuro: Denies: headache(s) Psych: Reports: anxiety Jacky/Lymph: Denies: easy bruising All/Imm: Reports: urticaria PFSH ED PFSH: Medical History Anxiety Crohn's disease Social History Smoking and tobacco status: current every day smoker cigarettes Packs smoked per day: 0.25 Alcohol intake: never History of recent travel: No Female Reproductive History: Date of last menstrual period: 03/27/21 Spontaneous abortions: No Physical Exam Const: COMMON NORMALS: no acute distress, patient oriented x3 and healthy appearing GENERAL APPEARANCE: anxious HENMT: COMMON NORMALS: normocephalic and atraumatic HEAD & SCALP: normocephalic and atraumatic Eye: COMMON NORMALS: Equal, round and reactive pupils present and EOMs intact bilaterally PUPIL: Yes Equal, round and reactive pupils present Neck/C-Spine: COMMON NORMALS: full ROM and supple Chest: COMMONS NORMALS: normal inspection of the chest and normal palpation of entire chest wall Resp: COMMON NORMALS: normal respiratory effort, No retractions, No use of accessory muscles and clear to auscultation bilaterally AUSCULTATION: clear to auscultation bilaterally Cardio: COMMON NORMALS: regular rhythm and No murmurs present (Cardio) RATE: tachycardic RHYTHM: regular rhythm GI: COMMON NORMALS: Normal to inspection, nondistended, normoactive bowel sounds present, Soft to palpation, non-tender and no masses PALPATION: Yes Soft to palpation Extremity: COMMON NORMALS: normal to inspection and full ROM Neuro: COMMON NORMALS: patient oriented x3, moves all extremities and no focal motor deficits Psych: COMMON NORMALS: mental status grossly normal, Normal thought process present and cooperative THOUGHT PROCESS: Normal thought process present OTHER: appears anxious Skin: COMMON NORMALS: no wounds NARRATIVE SKIN EXAM: Maculopapular rash to bilateral arms Course Vital Signs: Vital signs: Vital Signs Temperature 98.8 F 05/21/21 18:45 Pulse Rate 108 H 05/21/21 18:53 Respiratory Rate 18 05/21/21 18:53 Blood Pressure 156/98 05/21/21 18:53 Pulse Oximetry 100 05/21/21 18:53 MDM - Allergic Reaction MDM Narrative: Medical decision making narrative: Patient presents here with an allergic reaction she is improved here. We will place her on 5 days of steroids. She had no airway involvement and is stable for discharge. Discharge Plan Discharge Patient Disposition: Home Clinical Impression: Allergic reaction Qualifiers: Encounter type: initial encounter Qualified Code(s): T78.40XA - Allergy, unspecified, initial encounter Condition: Stable Prescriptions: New prednisone 50 mg tablet 50 mg PO DAILY Qty: 5 RF: 0 No Action hydroxyzine HCl 25 mg tablet 25 mg PO TID PRN (Reason: anxiety) Qty: 20 RF: 0 ketorolac 10 mg tablet 10 mg PO TID PRN (Reason: pain) Qty: 10 RF: 0 Discharge Orders: Discharge ED (Routine); Ordered 05/21/21 Ordered By: Kris Hunt Discharge Diet: Advance as tolerated Discharge Activity: Resume usual activity Patient Instructions: Allergic Reaction Coding Level of Care Code ED Nutrition Manager for Augusto Fwd Exam Comprehensive
[2021-05-21] MEDS: predniSONE 20 mg Tablet 60 MG PO (19:39)
[2021-05-21] MEDS: LORazepam 2 mg/mL INJ 1 mL IM (19:39)
[2021-05-21] MEDS: diphenhydrAMINE 50 mg/mL SDV 1mL IM (19:46)
[2021-05-21 20:29] VITALS: BP 126/79; PULSE 84; RESP 16; TEMP 36.9; O2SAT 98
== END 2021-05-21 20:31 | disposition home or self-care (01) ==
PROVIDERS: Emergency Provider Emergency Medicine
DX: T78.40XA Allergy, unspecified, initial encounter (principal); F17.210 Nicotine dependence, cigarettes, uncomplicated
CPT/HCPCS: 96372; 99283; J1200; J2060; J7512

== ENCOUNTER 2022-09-13 18:12 | Emergency (ER) | payer MEDICAID, SELFPAY ==
[2022-09-13 18:25] VITALS: BP 140/81; PULSE 112; RESP 14; TEMP 36.6; O2SAT 98; BMI 18.8
--- NOTE | 2022-09-13 20:14 | W.ED.GENADLT ---
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 She states that she does have a history of Crohn's she has been having some abdominal pains been crampy nature she is also having dental pain she has a history of poor dentition denies any fever. She denies any vomiting or diarrhea Associated symptoms: Deny chest pain, dyspnea, headache(s), nausea, rash or vomiting Review of Systems Const: Denies: fever(s), chills, body aches or change in appetite Eyes: Denies: blurry vision or eye discomfort ENMT: Reports: dental pain; Denies: throat pain Card: Denies: chest pain Resp: Denies: dyspnea GI: Reports: abdominal pain; Denies: nausea, vomiting or diarrhea : Denies: dysuria Musc: Denies: neck pain or back pain Skin/Breast: Denies: rash Neuro: Denies: headache(s) Psych: Denies: depression Jacky/Lymph: Denies: easy bruising All/Imm: Denies: urticaria PFSH ED PFSH: Medical History Anxiety Crohn's disease Social History Smoking and tobacco status: current every day smoker cigarettes Packs smoked per day: 0.25 Alcohol intake: never History of recent travel: No Female Reproductive History: Date of last menstrual period: 03/27/21 Spontaneous abortions: No Physical Exam Const: COMMON NORMALS: no acute distress, patient oriented x3 and healthy appearing HENMT: COMMON NORMALS: normocephalic and atraumatic HEAD & SCALP: normocephalic and atraumatic OTHER: poor dentition Eye: COMMON NORMALS: Equal, round and reactive pupils present and EOMs intact bilaterally PUPIL: Yes Equal, round and reactive pupils present Neck/C-Spine: COMMON NORMALS: full ROM and supple Chest: COMMONS NORMALS: normal inspection of the chest and normal palpation of entire chest wall Resp: COMMON NORMALS: normal respiratory effort, No retractions, No use of accessory muscles and clear to auscultation bilaterally AUSCULTATION: clear to auscultation bilaterally Cardio: COMMON NORMALS: regular rate, regular rhythm and No murmurs present (Cardio) RATE: regular rate RHYTHM: regular rhythm GI: COMMON NORMALS: Normal to inspection, nondistended, normoactive bowel sounds present, Soft to palpation, non-tender and no masses PALPATION: Yes Soft to palpation Extremity: COMMON NORMALS: normal to inspection and full ROM Neuro: COMMON NORMALS: patient oriented x3, moves all extremities and no focal motor deficits Psych: COMMON NORMALS: mental status grossly normal, Normal thought process present and cooperative THOUGHT PROCESS: Normal thought process present Skin: COMMON NORMALS: no rashes or lesions noted and no wounds GENERAL SKIN EXAM: no rashes or lesions noted Course Vital Signs: Vital signs: Vital Signs Temperature 97.8 F 09/13/22 18:25 Pulse Rate 87 09/13/22 21:00 Respiratory Rate 16 09/13/22 21:00 Blood Pressure 113/79 09/13/22 21:00 Pulse Oximetry 97 09/13/22 21:00 Oxygen Delivery Me thod 09/13/22 20:33 MDM - General Adult Medical Decision Making Patient presents here with dental pain she does have poor dentition no signs of abscess we will start her on Keflex for likely dental infection she also has chronic abdominal pain from her Crohn's her exam here is benign blood work is normal she is stable for discharge she is to follow-up with her PCP and return if worsening. Lab Data 09/13/22 21:17 09/13/22 20:27 Laboratory Results WBC 7.4 10^3/uL (4.0-10.0) 09/13/22 21:17 Corrected WBC Cancelled 09/13/22 20:27 RBC 4.23 10^6/uL (4.1-5.3) 09/13/22 21:17 Hgb 12.2 g/dL (11.5-15.3) 09/13/22 21:17 Hct 38.2 % (37.0-47.0) 09/13/22 21:17 MCV 90.3 fl (81-99) 09/13/22 21:17 MCH 28.8 pg (28.0-34.0) 09/13/22 21:17 MCHC 31.9 g/dL (30.0-36.0) 09/13/22 21:17 RDW 14.5 % (12.1-15.1) 09/13/22 21:17 Plt Count 295 10^3/cmm (130-400) 09/13/22 21:17 MPV 9.6 fL (7.4-10.4) 09/13/22 21:17 Gran % Cancelled 09/13/22 20:27 Neut % (Auto) 39.2 % 09/13/22 21:17 Lymph % (Auto) 41.8 % 09/13/22 21:17 [place] % (Auto) 10.6 % 09/13/22 21:17 Eos % (Auto) 7.3 % 09/13/22 21:17 Baso % (Auto) 1.0 % 09/13/22 21:17 Neut # (Auto) 2.88 10^3/uL (1.8-7.7) 09/13/22 21:17 Lymph # (Auto) 3.1 10^3/uL (0.8-4.8) 09/13/22 21:17 [place] # (Auto) 0.8 10^3/uL (0.2-0.9) 09/13/22 21:17 Eos # (Auto) 0.5 10^3/uL (0.0-0.8) 09/13/22 21:17 Baso # (Auto) 0.1 10^3/uL (0.0-0.1) 09/13/22 21:17 Absolute Gran (auto) Cancelled 09/13/22 20:27 Nucleated RBC % (auto) 0 % 09/13/22 21:17 Nucleated RBCs # 0.0 /100WBC 09/13/22 21:17 Sodium 134 mmol/L (136-145) L 09/13/22 20:27 Potassium 4.3 mmol/L (3.5-5.1) 09/13/22 20:27 Chloride 101 mmol/L (98-107) 09/13/22 20:27 Carbon Dioxide 21 mmol/L (22-29) L 09/13/22 20:27 Anion Gap 16.3 (5-19) 09/13/22 20:27 BUN 14 mg/dL (6-20) 09/13/22 20:27 Creatinine 0.7 mg/dL (0.5-0.9) 09/13/22 20:27 GFR Calculation 92.2 mL/min (90-130) 09/13/22 20:27 Glucose 94 mg/dL (65-115) 09/13/22 20:27 Calculated Osmolality 278 mOsm/kg (285-295) L 09/13/22 20:27 Calcium 9.1 mg/dL (8.5-10.5) 09/13/22 20:27 Total Bilirubin 0.2 mg/dL (0.15-1.2) 09/13/22 20:27 AST 23 U/L (0-32) 09/13/22 20:27 ALT 19 U/L (0-33) 09/13/22 20:27 Alkaline Phosphatase 103 U/L (35-105) 09/13/22 20:27 Total Protein 7.1 g/dL (6.6-8.7) 09/13/22 20:27 Albumin 4.0 g/dL (3.5-5.2) 09/13/22 20:27 Globulin 3.1 g/dL (1.3-4.6) 09/13/22 20:27 Lipase 54 U/L (13-60) 09/13/22 20:27 HCG, Qual Negative (Negative) 09/13/22 20:27 Discharge Plan Discharge Patient Disposition: Home Clinical Impression: Abdominal pain, Pain, dental Condition: Stable Prescriptions: New cephalexin 500 mg capsule 500 mg PO TID 7 Days Qty: 21 0RF Reglan 10 mg tablet 10 mg PO Q6H PRN (Reason: nausea and vomiting) Qty: 20 0RF No Action hydroxyzine HCl 25 mg tablet 25 mg PO TID PRN (Reason: anxiety) Qty: 20 0RF prednisone 50 mg tablet 50 mg PO DAILY Qty: 5 0RF ketorolac 10 mg tablet 10 mg PO TID PRN (Reason: pain) Qty: 10 0RF Discharge Orders: Discharge ED (Routine); Ordered 09/13/22 Ordered By: Kris Hunt Discharge Diet: Advance as tolerated Discharge Activity: Resume usual activity Patient Instructions: Abdominal Pain (ED), Toothache (ED) Coding Level of Care Code ED Reproductive Healthcare Assistant for Chg Fwd Exam Comprehensive
[2022-09-13 20:33] VITALS: BP 139/95; PULSE 90; RESP 16; O2SAT 99
[2022-09-13] MEDS: metoclopramide 5 mg/mL SDV 2 mL 10 MG IVP (20:34)
[2022-09-13] MEDS: diphenhydrAMINE 50 mg/mL SDV 1mL IVP (20:34)
[2022-09-13 21:00] VITALS: BP 113/79; PULSE 87; RESP 16; O2SAT 97
[2022-09-13 21:10] LABS: Alanine Aminotransferase 19 U/L (0-33); Alkaline Phosphatase 103 U/L (35-105); Blood Urea Nitrogen 14 mg/dL (6-20); Calcium 9.1 mg/dL (8.5-10.5); Carbon Dioxide 21 mmol/L (22-29); Chloride 101 mmol/L (98-107); Globulin 3.1 g/dL (1.3-4.6); Glomerular Filtration Rate 92.2 mL/min (90-130); Glucose 94 mg/dL (65-115); Lipase 54 U/L (13-60); Osmolality Calculated 278 mOsm/kg (285-295); Sodium 134 mmol/L (136-145); Total Bilirubin 0.2 mg/dL (0.15-1.2); Total Protein 7.1 g/dL (6.6-8.7)
[2022-09-13 21:12] LABS: HCG, Serum Qual Negative (Negative)
[2022-09-13 21:14] LABS: Anion Gap 16.3 (5-19); Aspartate Amino Transferase 23 U/L (0-32); Potassium 4.3 mmol/L (3.5-5.1)
[2022-09-13 21:20] LABS: Basophils # 0.1 10^3/uL (0.0-0.1); Eosinophils # 0.5 10^3/uL (0.0-0.8); Eosinophils % 7.3 %; Hematocrit 38.2 % (37.0-47.0); Hemoglobin 12.2 g/dL (11.5-15.3); Lymphocytes # 3.1 10^3/uL (0.8-4.8); Lymphocytes % 41.8 %; Mean Corpuscular HGB Conc 31.9 g/dL (30.0-36.0); Mean Corpuscular Hemoglobin 28.8 pg (28.0-34.0); Mean Corpuscular Volume 90.3 fl (81-99); Mean Platelet Volume 9.6 fL (7.4-10.4); Monocytes # 0.8 10^3/uL (0.2-0.9); Monocytes % 10.6 %; Neutrophils # 2.88 10^3/uL (1.8-7.7); Neutrophils % 39.2 %; Nucleated Red Blood Cells % 0 %; Platelet Count 295 10^3/cmm (130-400); Red Blood Count 4.23 10^6/uL (4.1-5.3); Red Cell Distribution Width 14.5 % (12.1-15.1); White Blood Count 7.4 10^3/uL (4.0-10.0)
== END 2022-09-13 21:37 | disposition home or self-care (01) ==
PROVIDERS: Emergency Provider Emergency Medicine
DX: K08.89 Other specified disorders of teeth and supporting structures (principal); R10.9 Unspecified abdominal pain; F17.210 Nicotine dependence, cigarettes, uncomplicated
CPT/HCPCS: 80053; 83690; 84703; 85025; 96374; 96375; 99284; J1200; J2765

== ENCOUNTER → 2022-10-05 13:33 | Outpatient (BNVA) | payer MEDICAID, SELFPAY | PROVIDERS: Visit Provider Registered Nurse Neonatal Intensive Care | DX: R05.9 Cough, unspecified (principal) | CPT/HCPCS: 87400 ==

== ENCOUNTER 2022-11-29 17:38 | Inpatient (IN) | payer MEDICAID, SELFPAY ==
[2022-11-29 17:40] VITALS: BP 130/91; PULSE 69; RESP 18; TEMP 36.4; O2SAT 98; BMI 24.9
--- NOTE | 2022-11-29 18:15 | CTR_ITS ---
PROCEDURE INFORMATION: Exam: CT Abdomen And Pelvis With Contrast Exam date and time: 11/29/2022 7:08 PM Age: 42 years old Clinical indication: Abdominal pain; Acute; Prior surgery; Surgery date: 1-6 months; Surgery type: Colostomy reverse appy tubal; Additional info: Abd pain TECHNIQUE: Imaging protocol: Computed tomography of the abdomen and pelvis with contrast. Axial, coronal and sagittal reformatted images were created and reviewed. Radiation optimization: All CT scans at this facility use at least one of these dose optimization techniques: automated exposure control; mA and/or kV adjustment per patient size (includes targeted exams where dose is matched to clinical indication); or iterative reconstruction. Contrast material: OMNI 350; Contrast volume: 95 ml; Contrast route: INTRAVENOUS (IV); Other protocol: This patient has received 0 known CTs and 0 known cardiac nuclear medicine studies in the 12 months prior to the current study. COMPARISON: CR XR chest 1V portable [id number] 04/02/2021 4:48 PM RADIATION DOSE METRICS: Total DLP (mGy-cm): 416.28 FINDINGS: Liver: Unremarkable. Gallbladder and bile ducts: No radiodense gallstones. No biliary ductal dilatation. Pancreas: Unremarkable. Spleen: Unremarkable. Adrenal glands: Normal. No mass. Kidneys and ureters: No mass. No radiodense calculi. No hydronephrosis. Stomach and bowel: Evidence of prior bowel resection. Multiple mildly dilated loops of small bowel with air-fluid levels and abrupt transition to decompressed small bowel along the undersurface of the right anterior abdominal wall at the level of the anastomosis, where there is associated small bowel fecalization. No definite bowel wall thickening. No pneumatosis. Appendix: Surgically absent. Intraperitoneal space: No free fluid. No organized fluid collection. No free air. Vasculature: Minimal atherosclerotic disease. No aneurysm or dissection. Lymph nodes: No pathologically enlarged lymph nodes. Urinary bladder: Unremarkable as visualized. Reproductive: Bilateral adnexal cystic lesions and/or hydrosalpinx, measuring up to 5.7 x 4.5 cm on the right and 3.5 x 3.2 cm on the left. Bones/joints: No acute osseous abnormality. Soft tissues: Unremarkable. CT/CT abdomen pelvis w con* [id number] IMPRESSION: 1. Small bowel obstruction, as described above. 2. Bilateral adnexal cystic lesions and/or hydrosalpinx, measuring up to 5.7 x 4.5 cm on the right and 3.5 x 3.2 cm on the left. If clinically indicated, pelvic ultrasound may be obtained for further evaluation. 3. Additional findings, as above.
--- NOTE | 2022-11-29 18:15 | W.ED.ABDPA2 ---
HPI - Abdominal Pain General: Chief Complaint: Abdominal Pain Stated Complaint: N/V Abd pain Time Seen by Provider: 11/29/22 17:49 Source: patient Mode of arrival: ambulatory Limitations: no limitations History of Present Illness: 42-year-old female has history of Crohn's disease she had a portion of her bowel removed back in 2008 and had a colostomy for a while she states that since then she really has not had any issues with her Crohn's she no longer has an ostomy but states that over the last 2 days she been having increasing abdominal pain states the pain is diffuse in nature she denies any diarrhea or constipation she had some nausea denies any vomiting she rates her pain 8 out of 10 currently denies any fevers. Associated Symptoms: Denies chills, dysuria and fever(s) Related Data: Date of Last Menstrual Period: 03/27/21 Review of Systems Const: Denies: fever(s), chills, body aches or change in appetite Eyes: Denies: blurry vision or eye discomfort ENMT: Denies: throat pain or dental pain Card: Denies: chest pain Resp: Denies: dyspnea GI: Reports: abdominal pain : Denies: dysuria Musc: Denies: neck pain or back pain Skin/Breast: Denies: rash Neuro: Denies: headache(s) Psych: Denies: depression Jacky/Lymph: Denies: easy bruising All/Imm: Denies: urticaria PFSH ED PFSH: Medical History Anxiety Crohn's disease Social History Smoking and tobacco status: current every day smoker cigarettes Packs smoked per day: 0.25 Alcohol intake: never History of recent travel: No Female Reproductive History: Date of last menstrual period: 03/27/21 Spontaneous abortions: No Physical Exam Const: COMMON NORMALS: no acute distress, patient oriented x3 and healthy appearing HENMT: COMMON NORMALS: normocephalic and atraumatic HEAD & SCALP: normocephalic and atraumatic Eye: COMMON NORMALS: Equal, round and reactive pupils present and EOMs intact bilaterally PUPIL: Yes Equal, round and reactive pupils present Neck/C-Spine: COMMON NORMALS: full ROM and supple Chest: COMMONS NORMALS: normal inspection of the chest and normal palpation of entire chest wall Resp: COMMON NORMALS: normal respiratory effort, No retractions, No use of accessory muscles and clear to auscultation bilaterally AUSCULTATION: clear to auscultation bilaterally Cardio: COMMON NORMALS: regular rate, regular rhythm and No murmurs present (Cardio) RATE: regular rate RHYTHM: regular rhythm GI: COMMON NORMALS: Normal to inspection, nondistended, normoactive bowel sounds present, Soft to palpation and no masses PALPATION: Yes Soft to palpation OTHER: diffusely tender Extremity: COMMON NORMALS: normal to inspection and full ROM Neuro: COMMON NORMALS: patient oriented x3, moves all extremities and no focal motor deficits Psych: COMMON NORMALS: mental status grossly normal, Normal thought process present and cooperative THOUGHT PROCESS: Normal thought process present Skin: COMMON NORMALS: no rashes or lesions noted and no wounds GENERAL SKIN EXAM: no rashes or lesions noted Course Vital Signs: Vital signs: Vital Signs Temperature 97.6 F 11/29/22 17:40 Pulse Rate 69 11/29/22 17:40 Respiratory Rate 18 11/29/22 17:40 Blood Pressure 130/91 11/29/22 17:40 Pulse Oximetry 98 11/29/22 17:40 Oxygen Delivery Me thod 11/29/22 17:40 MDM - Abdominal Pain Medical Decision Making Patient presents with abdominal pain CT here does show small bowel obstruction she also has a cystitis spoke to surgeon along with hospitalist will admit this time we will place an NG tube down in the ER patient started on IV antibiotics as well. Lab Data 11/29/22 18:12 11/29/22 18:12 Labs/Radiology: Radiology Impressions Abdomen/Pelvis CT 11/29/22 18:15 IMPRESSION: 1. Small bowel obstruction, as described above. 2. Bilateral adnexal cystic lesions and/or hydrosalpinx, measuring up to 5.7 x 4.5 cm on the right and 3.5 x 3.2 cm on the left. If clinically indicated, pelvic ultrasound may be obtained for further evaluation. 3. Additional findings, as above. Laboratory Results WBC 12.1 10^3/uL (4.0-10.0) H 11/29/22 18:12 RBC 5.81 10^6/uL (4.1-5.3) H 11/29/22 18:12 Hgb 15.9 g/dL (11.5-15.3) H 11/29/22 18:12 Hct 50.1 % (37.0-47.0) H 11/29/22 18:12 MCV 86.2 fl (81-99) 11/29/22 18:12 MCH 27.4 pg (28.0-34.0) L 11/29/22 18:12 MCHC 31.7 g/dL (30.0-36.0) 11/29/22 18:12 RDW 13.9 % (12.1-15.1) 11/29/22 18:12 Plt Count 300 10^3/cmm (130-400) 11/29/22 18:12 MPV 10.1 fL (7.4-10.4) 11/29/22 18:12 Neut % (Auto) 74.4 % 11/29/22 18:12 Lymph % (Auto) 20.2 % 11/29/22 18:12 [place] % (Auto) 3.5 % 11/29/22 18:12 Eos % (Auto) 1.3 % 11/29/22 18:12 Baso % (Auto) 0.3 % 11/29/22 18:12 Neut # (Auto) 8.95 10^3/uL (1.8-7.7) H 11/29/22 18:12 Lymph # (Auto) 2.4 10^3/uL (0.8-4.8) 11/29/22 18:12 [place] # (Auto) 0.4 10^3/uL (0.2-0.9) 11/29/22 18:12 Eos # (Auto) 0.2 10^3/uL (0.0-0.8) 11/29/22 18:12 Baso # (Auto) 0.0 10^3/uL (0.0-0.1) 11/29/22 18:12 Nucleated RBC % (auto) 0 % 11/29/22 18:12 Nucleated RBCs # 0.0 /100WBC 11/29/22 18:12 Sodium 138 mmol/L (136-145) 11/29/22 18:12 Potassium 4.3 mmol/L (3.5-5.1) 11/29/22 18:12 Chloride 98 mmol/L (98-107) 11/29/22 18:12 Carbon Dioxide 27 mmol/L (22-29) 11/29/22 18:12 Anion Gap 17.3 (5-19) 11/29/22 18:12 BUN 11 mg/dL (6-20) 11/29/22 18:12 Creatinine 0.6 mg/dL (0.5-0.9) 11/29/22 18:12 GFR Calculation 110.2 mL/min (90-130) 11/29/22 18:12 Glucose 95 mg/dL (65-115) 11/29/22 18:12 Calculated Osmolality 285 mOsm/kg (285-295) 11/29/22 18:12 Calcium 9.7 mg/dL (8.5-10.5) 11/29/22 18:12 Total Bilirubin 0.3 mg/dL (0.15-1.2) 11/29/22 18:12 AST 30 U/L (0-32) 11/29/22 18:12 ALT 19 U/L (0-33) 11/29/22 18:12 Alkaline Phosphatase 104 U/L (35-105) 11/29/22 18:12 Total Protein 8.9 g/dL (6.6-8.7) H 11/29/22 18:12 Albumin 5.1 g/dL (3.5-5.2) 11/29/22 18:12 Globulin 3.8 g/dL (1.3-4.6) 11/29/22 18:12 Lipase 35 U/L (13-60) 11/29/22 18:12 Urine Color Yellow (Yellow) 11/29/22 18:54 Urine Appearance Cloudy (CLEAR) A 11/29/22 18:54 Urine pH 8 (5-7) H 11/29/22 18:54 Ur Specific [place] 1.010 (1.005-1.030) 11/29/22 18:54 Urine Protein Neg (Negative) 11/29/22 18:54 Urine Glucose (UA) Norm (Normal) 11/29/22 18:54 Urine Ketones Negative (Negative) 11/29/22 18:54 Urine Blood Neg (Negative) 11/29/22 18:54 Urine Nitrate Positive (Negative) H 11/29/22 18:54 Urine Bilirubin Neg (Negative) 11/29/22 18:54 Urine Urobilinogen Neg mg/dL (Negative) 11/29/22 18:54 Ur Leukocyte Esterase Trace (Negative) H 11/29/22 18:54 Urine RBC Rare /hpf (0-2) 11/29/22 18:54 Urine WBC 15-25 /hpf (0-5) H 11/29/22 18:54 Ur Squamous Epith Cells 0-4 /hpf (0-5) H 11/29/22 18:54 Amorphous Sediment 2+ /hpf 11/29/22 18:54 Urine Bacteria 3+ /hpf (NONE) H 11/29/22 18:54 Urine Mucus 2+ /hpf 11/29/22 18:54 Discharge Plan Discharge Patient Disposition: Admitted As Inpatient Clinical Impression: Small bowel obstruction, Acute cystitis Condition: Stable Coding Level of Care Code ED Director Patient for Augusto Fwd Exam Comprehensive
[2022-11-29 18:23] LABS: Basophils % 0.3 %; Eosinophils # 0.2 10^3/uL (0.0-0.8); Eosinophils % 1.3 %; Hematocrit 50.1 % (37.0-47.0); Hemoglobin 15.9 g/dL (11.5-15.3); Lymphocytes # 2.4 10^3/uL (0.8-4.8); Lymphocytes % 20.2 %; Mean Corpuscular HGB Conc 31.7 g/dL (30.0-36.0); Mean Corpuscular Hemoglobin 27.4 pg (28.0-34.0); Mean Corpuscular Volume 86.2 fl (81-99); Mean Platelet Volume 10.1 fL (7.4-10.4); Monocytes # 0.4 10^3/uL (0.2-0.9); Monocytes % 3.5 %; Neutrophils # 8.95 10^3/uL (1.8-7.7); Neutrophils % 74.4 %; Nucleated Red Blood Cells % 0 %; Platelet Count 300 10^3/cmm (130-400); Red Blood Count 5.81 10^6/uL (4.1-5.3); Red Cell Distribution Width 13.9 % (12.1-15.1); White Blood Count 12.1 10^3/uL (4.0-10.0)
[2022-11-29] MEDS: HYDROmorphone 1 mg/mL INJ 1 mL IVP (18:24)
[2022-11-29] MEDS: ondansetron 2 mg/ML SDV 2 mL 4 MG IVP ×2 (18:24→22:26)
[2022-11-29] MEDS: sodium chloride 0.9% 1,000 ML 999 ML IV (18:31)
[2022-11-29 18:51] LABS: Alanine Aminotransferase 19 U/L (0-33); Albumin Level 5.1 g/dL (3.5-5.2); Alkaline Phosphatase 104 U/L (35-105); Blood Urea Nitrogen 11 mg/dL (6-20); Calcium 9.7 mg/dL (8.5-10.5); Carbon Dioxide 27 mmol/L (22-29); Chloride 98 mmol/L (98-107); Globulin 3.8 g/dL (1.3-4.6); Glomerular Filtration Rate 110.2 mL/min (90-130); Glucose 95 mg/dL (65-115); Lipase 35 U/L (13-60); Osmolality Calculated 285 mOsm/kg (285-295); Sodium 138 mmol/L (136-145); Total Bilirubin 0.3 mg/dL (0.15-1.2); Total Protein 8.9 g/dL (6.6-8.7)
[2022-11-29 18:53] LABS: Anion Gap 17.3 (5-19); Aspartate Amino Transferase 30 U/L (0-32); Potassium 4.3 mmol/L (3.5-5.1)
[2022-11-29] MEDS: iohexol 350 mg/mL 500 mL Btl (per mL) IV (19:12)
[2022-11-29 19:42] LABS: Add Urine Microscopic? YES; Bilirubin Urine Neg (Negative); Blood Urine Neg (Negative); Glucose Urine UA Norm (Normal); Ketones Urine Negative (Negative); Leukocyte Esterase Urine Trace (Negative); Nitrate Urine Positive (Negative); Protein Urine Neg (Negative); Urine Appearance Cloudy (CLEAR); Urine Color Yellow (Yellow); Urobilinogen Urine Neg (Negative); pH Urine 8 (5-7)
[2022-11-29 19:49] LABS: Add Urine Culture? Yes; Amorphous Sediment Urine 2+ /hpf; Bacteria Urine 3+ /hpf; Mucus Urine 2+ /hpf; RBC Urine RARE /hpf (0-2); Squamous Epithelial Cell Urine 0-4 /hpf (0-5); WBC Urine 15-25 /hpf (0-5)
[2022-11-29] MEDS: LORazepam 2 mg/mL INJ 1 mL 1 MG IVP (20:01)
[2022-11-29] MEDS: cefTRIAXone 1,000 MG in sodium chloride 0.9% (plus) 50 ML 100 MG IV (20:02)
--- NOTE | 2022-11-29 20:18 | PM.HP ---
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 Patient is stating that she was in her usual state of health until 4 days ago when she started complaining abdominal pain which was followed by recurrent episode of emesis, her last bowel movement was yesterday which was regular, she is getting dehydrated, she was able to eat blueberries and some liquid diet today as well however because of worsening of pain she is due to her to come to the hospital. Endorsing subjective fever, currently living with her friend. She carries history of Crohn disease status post small bowel resection, rectovaginal fistula s/p repair. Does not follow-up with any physician for now, as per the patient she is not taking any medications at all Review of Systems Const: Reports: chills; Denies: fever(s) Eyes: Denies: change in vision ENMT: Denies: throat pain Card: Denies: chest pain Resp: Denies: dyspnea GI: Reports: abdominal pain, nausea and vomiting : Denies: flank pain Musc: Denies: neck pain Skin/Breast: Denies: rash Neuro: Denies: headache(s) Psych: Reports: anxiety Endo: Denies: polyuria Jacky/Lymph: Denies: easy bruising All/Imm: Denies: urticaria Medications/Allergies Home Medications Medication Instructions Recorded Confirmed Last Taken Type ketorolac 10 mg tablet 10 mg PO TID PRN pain #10 tabs 04/02/21 10/05/22 Unknown Rx metoclopramide HCl 10 mg tablet 10 mg PO Q6H PRN nausea and 09/13/22 10/05/22 Unknown Rx (Reglan) vomiting #20 tabs cetirizine 10 mg tablet (Zyrtec) 10 mg PO DAILY PRN allergy 10/05/22 10/05/22 Unknown Rx symptoms #30 tabs Allergies Allergy/AdvReac Type Severity Reaction Status Date / Time No Known Allergies Allergy Verified 11/29/22 17:45 PFSH Acute PFSH: Medical History (Updated 11/29/22 @ 20:25 by Indira York MD) Anxiety Crohn's disease Surgical History (Updated 11/29/22 @ 20:21 by Indira York MD) History of bowel resection S/P appendectomy Family History (Updated 11/29/22 @ 20:21 by Indira York MD) Denies family history of CAD (coronary artery disease) Social History Smoking and tobacco status: current every day smoker cigarettes Packs smoked per day: 0.25 Alcohol intake: never History of recent travel: No Female Reproductive History: Date of last menstrual period: 03/27/21 Spontaneous abortions: No Vitals/I&O/Wt Last Vital Signs Temp 97.6 F 11/29/22 17:40 Pulse 69 11/29/22 17:40 Resp 18 11/29/22 17:40 BP 130/91 11/29/22 17:40 Pulse Ox 98 11/29/22 17:40 O2 Del Method 11/29/22 17:40 Weight last 48 hrs Weight 65.771 kg Physical Exam Narrative: Patient is complaining of pain 6/10 Currently on room air Awake and alert Skin piercing noted Abdomen soft nontender no signs of peritonitis Tender at mid epigastric region S1, S2 Clinically dehydrated Anxious appearing Doing well on room air EOMI, PERRLA GCS 15 Pleasant and cooperative appears stated age Data 11/29/22 18:12 11/29/22 18:12 A&P Assessment and plan (1) Small bowel obstruction: (2) Anxiety: (3) Crohn's disease: (4) Dehydration: Plan Small bowel obstruction ?Evidence of prior bowel resection. Multiple mildly dilated loops of small bowel with air-fluid levels and abrupt transition to decompressed small bowel along the undersurface of the right anterior abdominal wall at the level of the anastomosis, where there is associated small bowel fecalization. No definite bowel wall thickening. No pneumatosis. Appendix:? Surgically absent. 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 DVT prophylaxis I will use Lovenox Attestations Medical Necessity Statement*: Anticipating more than 2 midnights Time Spent in Patient Care: 45 Coding Level of Care Code 41581 Exam Expanded Problem Focused Medical Decision Making Moderate Complexity Diagnoses Small bowel obstruction K56.609 Anxiety F41.9 Crohn's disease K50.90 Dehydration E86.0
--- NOTE | 2022-11-29 20:42 | XRR_ITS ---
PROCEDURE INFORMATION: Exam: XR Chest Exam date and time: 11/29/2022 8:53 PM Age: 42 years old Clinical indication: Device placement; Ng tube TECHNIQUE: Imaging protocol: Radiologic exam of the chest. Views: 1 view. COMPARISON: CR XR chest 1V portable [id number] 04/02/2021 4:48 PM FINDINGS: Tubes, catheters and devices: NG tube in place with its tip and side hole in the left upper quadrant below the level of the diaphragm. Lungs: Unremarkable. No consolidation. Pleural spaces: Unremarkable. No pleural effusion. No pneumothorax. Heart/Mediastinum: Unremarkable. No cardiomegaly. Bones/joints: Unremarkable. XR/XR chest 1V portable [id number] IMPRESSION: NG tube in adequate position.
[2022-11-29 21:07] LABS: Amphetamines Screen Urine Negative (Negative); Barbiturates Screen Urine Negative (Negative); Benzodiazepines Screen Urine Negative (Negative); Cocaine Screen Urine Negative (Negative); Opiate Screen Urine Positive (Negative); PCP Screen Urine Negative (Negative); THC Screen Urine Negative (Negative)
[2022-11-29 21:21] VITALS: BP 115/81; PULSE 80; RESP 15; O2SAT 95
[2022-11-29 22:02] VITALS: BP 120/80; PULSE 87; RESP 18; TEMP 36.4; O2SAT 95
[2022-11-29] MEDS: dextrose 5%-sod chloride 0.9% 1,000 ML 75 ML IV (22:11)
[2022-11-29] MEDS: enoxaparin 40 mg/0.4 mL Syringe SUBCUT (22:11)
[2022-11-29 22:19] VITALS: RESP 18
[2022-11-29] MEDS: morphine 4 mg/mL SDV 1 mL 2 MG IVP (22:19)
[2022-11-29 23:15] VITALS: BP 109/73; PULSE 81; RESP 17; TEMP 36.6; O2SAT 95
[2022-11-29] MEDS: ketorolac 30 mg/mL INJ 15 MG IVP (23:59)
[2022-11-30] VITALS (14 sets, daily range): BP systolic 90–110; BP diastolic 58–74; PULSE 58–97; RESP 16–19; TEMP 36.4–37; O2SAT 95–99
[2022-11-30] MEDS: lanolin oint 7 gm 1 APPLIC TOPICAL (05:38)
[2022-11-30 05:57] LABS: Basophils % 0.3 %; Eosinophils # 0.1 10^3/uL (0.0-0.8); Eosinophils % 1.4 %; Hematocrit 40.9 % (37.0-47.0); Hemoglobin 12.9 g/dL (11.5-15.3); Lymphocytes # 2.1 10^3/uL (0.8-4.8); Lymphocytes % 27.7 %; Mean Corpuscular HGB Conc 31.5 g/dL (30.0-36.0); Mean Corpuscular Hemoglobin 28.4 pg (28.0-34.0); Mean Corpuscular Volume 90.1 fl (81-99); Mean Platelet Volume 10.4 fL (7.4-10.4); Monocytes # 0.5 10^3/uL (0.2-0.9); Monocytes % 6.9 %; Neutrophils % 63.6 %; Nucleated Red Blood Cells % 0 %; Platelet Count 219 10^3/cmm (130-400); Red Blood Count 4.54 10^6/uL (4.1-5.3); Red Cell Distribution Width 14.4 % (12.1-15.1); White Blood Count 7.7 10^3/uL (4.0-10.0)
[2022-11-30] MEDS: ketorolac 30 mg/mL INJ 15 MG IVP (06:13)
[2022-11-30 06:31] LABS: Alanine Aminotransferase 11 U/L (0-33); Albumin Level 3.6 g/dL (3.5-5.2); Alkaline Phosphatase 74 U/L (35-105); Anion Gap 16.9 (5-19); Aspartate Amino Transferase 18 U/L (0-32); Blood Urea Nitrogen 12 mg/dL (6-20); C Reactive Protein 7.6 mg/L (0.0-4.9); Carbon Dioxide 22 mmol/L (22-29); Chloride 106 mmol/L (98-107); Globulin 2.6 g/dL (1.3-4.6); Glucose 102 mg/dL (65-115); Magnesium 1.7 mg/dL (1.7-2.3); Osmolality Calculated 292 mOsm/kg (285-295); Potassium 3.9 mmol/L (3.5-5.1); Sodium 141 mmol/L (136-145); Total Bilirubin 0.3 mg/dL (0.15-1.2); Total Protein 6.2 g/dL (6.6-8.7)
[2022-11-30] MEDS: morphine 4 mg/mL SDV 1 mL 2 MG IVP ×3 (08:35→20:08)
--- NOTE | 2022-11-30 09:23 | PM.CONSULT ---
Providers/Reason For Consult Consulting Physician/Specialty*: Hospitalist Reason for Consult*: Crohn's disease, possible bowel obstruction Attending Physician: Lila Schuler MD History of Present Illness History of Present Illness Nette Marks is a 42 year old female with approximately 20-year history of Crohn's disease. The patient in 2008 underwent multiple surgeries while at [facility]. The patient has had no surgical intervention since. The patient has intermittent flare ups. The patient presents with nausea, vomiting and abdominal pain. The patient denies fever or chills. The patient's had a normal bowel movement within the last 24 to 48 hours. The patient stated when this episode started she was not able to have a bowel movement. She had obstipation. She had no diarrhea. The patient is on no current medications for Crohn's disease. The patient denies any history of weight loss or weight gain. Review of Systems General: Reports: 10 or more systems reviewed and unremarkable except in HPI and below Medications/Allergies Home Medications Medication Instructions Recorded Confirmed Last Taken Type No Known Home Medications 11/30/22 11/30/22 Unknown History Allergies Allergy/AdvReac Type Severity Reaction Status Date / Time No Known Allergies Allergy Verified 11/29/22 17:45 Current Medications Generic Name Dose Route Start Last Admin Trade Name Freq PRN Reason Stop Dose Admin Enoxaparin Sodium 40 mg 11/29/22 21:56 11/29/22 22:11 Enoxaparin 40 Mg/0.4 Ml Syringe SUBCUT 40 mg Q24H VINCENT Administration Dextrose/Sodium Chloride 1,000 mls @ 75 mls/hr 11/29/22 21:56 11/29/22 22:11 Dextrose 5%-Sod Chloride 0.9% IV 75 mls/hr .[id number] VINCENT Administration Ketorolac Tromethamine 15 mg 11/29/22 21:56 11/30/22 06:13 Ketorolac 30 Mg/Ml Inj IVP 12/04/22 21:55 15 mg Q6H PRN Administration For fever and pain Lanolin 1 applic 11/30/22 05:32 11/30/22 05:38 Lanolin Oint 7 Gm TOPICAL 1 applic PRN PRN Administration DRYNESS Morphine Sulfate 2 mg 11/29/22 21:56 11/30/22 08:35 Morphine 4 Mg/Ml Sdv 1 Ml IVP 2 mg Q3H PRN Administration abd pain Ondansetron HCl 4 mg 11/29/22 21:56 11/29/22 22:26 Ondansetron 2 Mg/Ml Sdv 2 Ml IVP 4 mg Q6H PRN Administration NAUSEA AND VOMITING PFSH Acute PFSH: Medical History (Updated 11/29/22 @ 20:25 by Indira York MD) Anxiety Crohn's disease Surgical History (Updated 11/29/22 @ 20:21 by Indira York MD) History of bowel resection S/P appendectomy Family History (Updated 11/29/22 @ 20:21 by Indira York MD) Denies family history of CAD (coronary artery disease) Social History Smoking and tobacco status: current every day smoker cigarettes Packs smoked per day: 0.25 Alcohol intake: never History of recent travel: No Female Reproductive History: Date of last menstrual period: 11/22/22 Spontaneous abortions: No Vitals/I&O/Wt Last Vital Signs Temp 98.5 F 11/30/22 07:27 Pulse 90 11/30/22 07:35 Resp 16 11/30/22 08:35 BP 96/64 11/30/22 07:27 Pulse Ox 98 11/30/22 07:35 O2 Del Method 11/30/22 07:35 11/29/22 11/30/22 11/30/22 22:59 06:59 14:59 Intake Total 1050 / 1050 Balance 1050 / 1050 Weight last 48 hrs Weight 145 lb 11.2 oz Weight 145 lb Physical Exam Narrative: Generally: No acute distress HEENT: Patient has an NG tube in place. Neck: no adenopathy. Lungs: Clear to auscultation and percussion Heart: Is regular rate and rhythm without murmurs. There is no S3 or S4 that I can appreciate. Abdomen: Soft, nondistended, nontender to palpation. The patient has a well-healed large midline scar. There is no hepatosplenomegaly. The patient has normal active bowel sounds. I do not appreciate any rushes or tinkles. The patient has some mild tenderness. The patient's tenderness is nonfocal. There is no rebound tenderness. There is no hernias that I can appreciate. The patient has no costovertebral angle tenderness Pelvis: Stable to AP and medial compression Extremities: There is no obvious deformities or point tenderness suggestive of fracture. The patient has no clubbing cyanosis or edema. The patient has good capillary refill in both her hands and feet. Neurologic: The patient is awake, alert, oriented x3. The patient moves all 4 extremities without difficulty. The patient sensations intact to light touch throughout. Data 11/30/22 05:18 11/30/22 05:18 Attestation for Other Data: I personally reviewed and interpreted the following: (CT scan of the abdomen pelvis. KUB from this morning.) A&P Assessment and plan (1) Crohn's disease: (2) Small bowel obstruction: Plan Crohn's disease with possible bowel obstruction: Agree with NG tube decompression. The patient does not have any indications for surgical intervention. Would aggressively treat the patient for Crohn's disease. Would consider starting the patient on Remicade. Would also start the patient on azathioprine. These are just suggestions. I appreciate the consult. Please reconsult for questions or concerns. Coding Level of Care Code 81245 Diagnoses Crohn's disease K50.90 Small bowel obstruction K56.609
[2022-11-30] MEDS: dextrose 5%-sod chloride 0.9% 1,000 ML 75 ML IV (11:14)
--- NOTE | 2022-11-30 11:57 | PM.PN ---
Subjective Subjective: seen this am NG draining clear reddish fluid about 250 cc in canister at the time pt endorses passing some gas says she feels a bit better requesting to have NG out. Vitals/I&O/Wt Last Vital Signs Temp 97.5 F L 11/30/22 11:39 Pulse 66 11/30/22 11:39 Resp 16 11/30/22 11:39 BP 99/61 11/30/22 11:39 Pulse Ox 98 11/30/22 11:39 O2 Del Method 11/30/22 11:39 11/29/22 11/30/22 11/30/22 22:59 06:59 14:59 Intake Total 1050 / 1050 978.75 / 978.75 Balance 1050 / 1050 978.75 / 978.75 Weight last 48 hrs Weight 66.088 kg Weight 65.771 kg Physical Exam Narrative: Seen laying in bed appearing comfortable at this time. Awake and alert Skin piercing noted Abdomen soft nontender no signs of peritonitis Very mildly tender around epigastric area. S1, S2 Clinically dehydrated Anxious appearing Doing well on room air EOMI, PERRLA GCS 15 Pleasant and cooperative appears stated age Data 11/30/22 05:18 11/30/22 05:18 Micro: Microbiology 11/29/22 18:54 Urine Culture - Preliminary Urine,Clean Catch Gram Negative Rods A&P Assessment and plan (1) Small bowel obstruction: (2) Anxiety: (3) Crohn's disease: (4) Dehydration: Plan Small bowel obstruction ?Evidence of prior bowel resection. Multiple mildly dilated loops of small bowel with air-fluid levels and abrupt transition to decompressed small bowel along the undersurface of the right anterior abdominal wall at the level of the anastomosis, where there is associated small bowel fecalization. No definite bowel wall thickening. No pneumatosis. Appendix:? Surgically absent. 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 DVT prophylaxis I will use Lovenox Attestations Medical Necessity Statement*: continue to management SBO in hospital. Coding Level of Care Code Acute Code for Chg Fwd Diagnoses Small bowel obstruction K56.609 Anxiety F41.9 Crohn's disease K50.90 Dehydration E86.0
[2022-11-30] MEDS: phenol oral Spray 177 mL 3 SPRAY MUCOUS MEM (18:35)
[2022-11-30] MEDS: cefTRIAXone 1,000 MG in sodium chloride 0.9% (plus) 50 ML 100 MG IV (20:04)
[2022-11-30] MEDS: enoxaparin 40 mg/0.4 mL Syringe SUBCUT (21:53)
[2022-12-01] VITALS (13 sets, daily range): BP systolic 90–138; BP diastolic 54–73; PULSE 64–76; RESP 14–22; TEMP 36.3–36.9; O2SAT 96–99
[2022-12-01] MEDS: dextrose 5%-sod chloride 0.9% 1,000 ML 75 ML IV (00:46)
[2022-12-01] MEDS: morphine 4 mg/mL SDV 1 mL 2 MG IVP ×5 (00:54→20:53)
[2022-12-01] MEDS: ketorolac 30 mg/mL INJ 15 MG IVP (02:07)
[2022-12-01 02:29] LABS: Anion Gap 11.7 (5-19); Blood Urea Nitrogen 9 mg/dL (6-20); Calcium 7.8 mg/dL (8.5-10.5); Carbon Dioxide 25 mmol/L (22-29); Chloride 112 mmol/L (98-107); Glomerular Filtration Rate 110.2 mL/min (90-130); Glucose 100 mg/dL (65-115); Osmolality Calculated 299 mOsm/kg (285-295); Potassium 3.7 mmol/L (3.5-5.1); Sodium 145 mmol/L (136-145)
--- NOTE | 2022-12-01 11:07 | PM.PN ---
Subjective Subjective: Hemodynamically stable overnight Patient had minimal output from her NG tube. Vitals/I&O/Wt Last Vital Signs Temp 97.8 F 12/01/22 08:00 Pulse 75 12/01/22 08:00 Resp 18 12/01/22 08:00 BP 90/54 12/01/22 08:00 Pulse Ox 97 12/01/22 08:00 O2 Del Method 12/01/22 08:00 11/30/22 12/01/22 12/01/22 22:59 06:59 14:59 Intake Total 50 / 1028.75 1000 / 8.75 Output Total 300 / 300 400 / 700 Balance -250 / 728.75 600 / 1328.75 Weight last 48 hrs Weight 145 lb 11.2 oz Weight 145 lb Physical Exam Narrative: Generally: No acute distress HEENT: NG tube in place Lungs: Clear to auscultation Heart: Is regular rate and rhythm without murmurs Abdomen: Soft nontender without masses. The patient has normal active bowel sounds. I do not appreciate any rushes or tinkles. The patient is slightly tender throughout. The patient does not have any focal tenderness. Extremities: Soft deformities or point tenderness. The patient has no clubbing cyanosis or edema Neurologic: Patient is awake, alert, oriented x3. The patient's Rojas Coma Scale is 15. Patient moves all 4 extremities without difficulty. The patient sensations intact to light touch throughout Data 11/30/22 05:18 12/01/22 01:52 Micro: Microbiology 11/29/22 18:54 Urine Culture - Preliminary Urine,Clean Catch Gram Negative Rods A&P Assessment and plan (1) Small bowel obstruction: This patient has no indication for surgical intervention. Again, would aggressively treat the patient's Crohn's disease. I believe we can remove the patient's NG tube at this time. Please reconsult for questions or concerns. Attestations Medical Necessity Statement*: Per primary physician Coding Level of Care Code 61705 Diagnoses Small bowel obstruction K56.609
--- NOTE | 2022-12-01 12:05 | P.PN_ITS ---
Subjective Subjective: Seen this AM. 400 cc output from NG overnight. Vitals/I&O/Wt Last Vital Signs Temp 98.5 F 12/01/22 11:56 Pulse 64 12/01/22 11:56 Resp 16 12/01/22 11:56 BP 130/73 12/01/22 11:56 Pulse Ox 96 12/01/22 11:56 O2 Del Method 12/01/22 11:56 11/30/22 12/01/22 12/01/22 22:59 06:59 14:59 Intake Total 50 / 1028.75 1000 / 8.75 Output Total 300 / 300 400 / 700 Balance -250 / 728.75 600 / 1328.75 Weight last 48 hrs Weight 66.088 kg Weight 65.771 kg Physical Exam Narrative: Seen laying in bed appearing comfortable at this time. Awake and alert Skin piercing noted Abdomen soft nontender no signs of peritonitis, no guarding. Bowel sounds prese nt but sluggish. Very mildly tender around umbilical area. S1, S2 Doing well on room air EOMI, PERRLA GCS 15 Pleasant and cooperative appears stated age Data 11/30/22 05:18 12/01/22 01:52 Micro: Microbiology 11/29/22 18:54 Urine Culture - Preliminary Urine,Clean Catch Gram Negative Rods A&P Assessment and plan (1) Small bowel obstruction: (2) Anxiety: (3) Crohn's disease: (4) Dehydration: Plan Small bowel obstruction ?Evidence of prior bowel resection. Multiple mildly dilated loops of small bowel with air-fluid levels and abrupt transition to decompressed small bowel along the undersurface of the right anterior abdominal wall at the level of the anastomosis, where there is associated small bowel fecalization. No definite bowel wall thickening. No pneumatosis. Appendix:? Surgically absent. No active signs of peritonitis General surgery has been consulted by the ER physician Opioids for her pain management Conservative management for now Patient will need outpatient gastroenterology referral the time of discharge Previous history of GI surgery Remove NG tube today. Patient is passing gas. CT scan did not show any evidence of strictures. I did discuss with the patient regarding treatment for Crohn's disease and she says she is not interested at this time. She would like to discuss with her political consultant before proceeding with any kind of treatment. Her political consultant is located in [place]. She agrees to follow-up after discharge. Also had a discussion with surgeon at length. We will try steroids at this time. Solumedrol 40 IV daily. I would not start remicade without GI referral and consultation at this point. If pt worsens, may consider transfer to hospital with GI capabilities. 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 Check urine culture. Continue on ceftriaxone. She is afebrile mild leukocytosis could be stress leukemoid reaction. WBC count has normalized. Urine culture positive for gram-negative rods. Full code Clear liquid diet. DVT prophylaxis I will use Lovenox Attestations Medical Necessity Statement*: continue to management SBO in hospital. Coding Level of Care Code Acute Code for Chg Fwd Diagnoses Small bowel obstruction K56.609 Anxiety F41.9 Crohn's disease K50.90 Dehydration E86.0
[2022-12-01] MEDS: cefTRIAXone 1,000 MG in sodium chloride 0.9% (plus) 50 ML 100 MG IV (21:15)
[2022-12-01] MEDS: enoxaparin 40 mg/0.4 mL Syringe SUBCUT (21:27)
[2022-12-02] VITALS (10 sets, daily range): BP systolic 94–124; BP diastolic 62–74; PULSE 70–88; RESP 14–19; TEMP 36.7–36.9; O2SAT 97–98
[2022-12-02] MEDS: morphine 4 mg/mL SDV 1 mL 2 MG IVP ×4 (04:14→20:29)
--- NOTE | 2022-12-02 08:10 | XRR_ITS ---
PROCEDURE INFORMATION: Exam: XR Abdomen Exam date and time: 12/02/2022 8:16 AM Age: 42 years old Clinical indication: Constipation; Additional info: Bowel obstruction TECHNIQUE: Imaging protocol: Radiologic exam of the abdomen. Views: Frontal supine view of the abdomen. 1 View. COMPARISON: CT abdomen pelvis w con* [id number] 11/29/2022 7:08 PM FINDINGS: Gastrointestinal tract: There is a non-obstructive bowel gas pattern. Some gas and fecal material is seen in the descending colon and rectosigmoid colon. There is no abnormal dilatation of bowel loops. There is no pneumatosis or mass effect. There is no organomegaly. Intraperitoneal space: No definite free air on the supine view exam. Bones/joints: There are no acute osseous abnormalities noted. Soft tissues: No radiopaque foreign body or abnormal opacity. XR/XR KUB portable [id number] IMPRESSION: Nonobstructive bowel gas pattern. Some gas and fecal material in the descending colon and rectosigmoid colon.
--- NOTE | 2022-12-02 11:45 | P.PN_ITS ---
Subjective Subjective: KUB ordered this AM shows non obstructive bowel gas pattern pt had bm overnight tolerated clear liquid diet Vitals/I&O/Wt Last Vital Signs Temp 98.4 F 12/02/22 08:00 Pulse 71 12/02/22 08:00 Resp 14 12/02/22 09:49 BP 105/67 12/02/22 08:00 Pulse Ox 97 12/02/22 08:00 O2 Del Method 12/02/22 08:00 12/01/22 12/02/22 12/02/22 22:59 06:59 14:59 Intake Total 1050 / 1170 Balance 1050 / 1170 Physical Exam Narrative: Seen laying in bed appearing comfortable at this time. Awake and alert Skin piercing noted Abdomen soft nontender no signs of peritonitis, no guarding. Bowel sounds present . non tender to palpation today S1, S2 Doing well on room air EOMI, PERRLA GCS 15 Pleasant and cooperative appears stated age Data 11/30/22 05:18 12/01/22 01:52 Micro: Microbiology 11/29/22 18:54 Urine Culture - Final Urine,Clean Catch Escherichia coli A&P Assessment and plan (1) Small bowel obstruction: (2) Anxiety: (3) Crohn's disease: (4) Dehydration: Plan Small bowel obstruction ?Evidence of prior bowel resection. Multiple mildly dilated loops of small bowel with air-fluid levels and abrupt transition to decompressed small bowel along the undersurface of the right anterior abdominal wall at the level of the anastomosis, where there is associated small bowel fecalization. No definite bowel wall thickening. No pneumatosis. Appendix:? Surgically absent. No active signs of peritonitis General surgery has been consulted by the ER physician Opioids for her pain management Conservative management for now Patient will need outpatient gastroenterology referral the time of discharge Previous history of GI surgery NG tube removed yesterday. Pt had a bowel movement overnight. CT scan did not show any evidence of strictures. I did discuss with the patient regarding treatment for Crohn's disease and she says she is not interested at this time. She would like to discuss with her automobile mechanic supervisor before proceeding with any kind of treatment. Her automobile mechanic supervisor is located in [place]. She agrees to follow-up after discharge. Also had a discussion with surgeon at length. Continue Solumedrol 40 IV daily. I would not start remicade without GI referral and consultation at this point. If pt worsens, may consider transfer to hospital with GI capabilities. 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 Check urine culture. Continue on ceftriaxone. She is afebrile mild leukocytosis could be stress leukemoid reaction. WBC count has normalized. Urine culture positive for gram-negative rods. Continue on gi soft diet. If pt able to tolerate, may consider dc later today or tomorrow. Full code GI soft diet. DVT prophylaxis I will use Lovenox Attestations Medical Necessity Statement*: continue to management SBO in hospital. Coding Level of Care Code Acute Code for Chg Fwd Diagnoses Small bowel obstruction K56.609 Anxiety F41.9 Crohn's disease K50.90 Dehydration E86.0
[2022-12-02] MEDS: dextrose 5%-sod chloride 0.9% 1,000 ML 75 ML IV (17:17)
[2022-12-02] MEDS: acetaminophen 325 mg Tablet 650 MG PO (18:48)
[2022-12-02] MEDS: cefTRIAXone 1,000 MG in sodium chloride 0.9% (plus) 50 ML 100 MG IV (20:24)
[2022-12-02] MEDS: enoxaparin 40 mg/0.4 mL Syringe SUBCUT (20:32)
[2022-12-02] MEDS: ketorolac 30 mg/mL INJ 15 MG IVP (22:00)
[2022-12-03] VITALS (10 sets, daily range): BP systolic 103–137; BP diastolic 68–86; PULSE 52–72; RESP 14–18; TEMP 36.6–36.9; O2SAT 96–98
[2022-12-03] MEDS: morphine 4 mg/mL SDV 1 mL 2 MG IVP ×2 (04:15→08:29)
[2022-12-03 05:24] LABS: Basophils % 0.1 %; Eosinophils % 0.1 %; Hematocrit 34.5 % (37.0-47.0); Hemoglobin 10.9 g/dL (11.5-15.3); Lymphocytes # 2.3 10^3/uL (0.8-4.8); Lymphocytes % 30.7 %; Mean Corpuscular HGB Conc 31.6 g/dL (30.0-36.0); Mean Corpuscular Hemoglobin 27.8 pg (28.0-34.0); Monocytes # 0.4 10^3/uL (0.2-0.9); Monocytes % 5.4 %; Neutrophils # 4.78 10^3/uL (1.8-7.7); Neutrophils % 63.6 %; Nucleated Red Blood Cells % 0 %; Platelet Count 232 10^3/cmm (130-400); Red Blood Count 3.92 10^6/uL (4.1-5.3); Red Cell Distribution Width 13.9 % (12.1-15.1); White Blood Count 7.5 10^3/uL (4.0-10.0)
[2022-12-03] MEDS: TRAMadol 50 mg Tablet PO ×2 (14:33→22:26)
--- NOTE | 2022-12-03 16:34 | PM.PN ---
Subjective Subjective: Afebrile, hemodynamically stable, tolerating her diet has had a bowel movement today. No noted blood.Still requiring morphine every 3 hours for pain management. Medications: Reviewed: Yes Vitals/I&O/Wt Last Vital Signs Temp 98.3 F 12/03/22 12:00 Pulse 72 12/03/22 12:00 Resp 16 12/03/22 12:00 BP 109/70 12/03/22 12:00 Pulse Ox 98 12/03/22 12:00 O2 Del Method 12/03/22 12:00 12/03/22 12/03/22 12/03/22 06:59 14:59 22:59 Intake Total 999 474 / 474 Balance 999 474 / 474 Physical Exam Narrative: General: No acute distress, AO x3 HEENT: PERRLA, pupils bilaterally equal and reactive, pallors not present Chest: Normal vesicular breath sounds, no added sounds, equal good air entry bilaterally CVS: S1-S2 regular, no murmurs, no tachycardia, no gallops, no rubs Abdomen: Soft, nontender, no organomegaly, bowel sounds present Neuro: No focal deficits, no facial deformity, AO x3, power 5/5 in all limbs Data 12/03/22 04:47 12/01/22 01:52 A&P Assessment and plan (1) Small bowel obstruction: (2) Anxiety: (3) Crohn's disease: (4) Dehydration: Plan Small bowel obstruction This is now resolved. Appreciate surgical recommendations. Patient is tolerating an oral diet today, has had a bowel movement. No blood noted. She is still requiring morphine every 3 hours for pain management. We will transition her to p.o. pain management today in anticipation of upcoming discharge in the next 24 hours. Patient is requesting not to be prescribed any opiates as she is currently in a court mandated drug monitoring program. We will optimize her pain control with as needed Toradol and add tramadol. Avoiding all opiates. Patient will need outpatient gastroenterology referral the time of discharge. She wishes to follow-up with [facility] she has not been on any treatment for her Crohn's disease till date. For now continuing her on steroids, patient has thus far been on Solu-Medrol 40 mg IV daily, transition her to prednisone 40 mg p.o. daily. If tolerates changed to p.o. steroids and p.o. pain management, anticipate discharge in the upcoming 24 hours. Urine culture shows E. coli, currently on ceftriaxone, can change to cefuroxime at the time of discharge. Full code GI soft diet. DVT prophylaxis I will use Lovenox Attestations Medical Necessity Statement*: Transition IV to oral steroids, opioid sparing pain management today, anticipate discharge in the upcoming 24 hours if tolerates these interventions. Coding Level of Care Code Acute Code for [facility] Fwd Diagnoses Small bowel obstruction K56.609 Anxiety F41.9 Crohn's disease K50.90 Dehydration E86.0
[2022-12-03] MEDS: cefUROXime 250 mg Tablet 500 MG PO (18:30)
[2022-12-03] MEDS: enoxaparin 40 mg/0.4 mL Syringe SUBCUT (22:27)
[2022-12-04] MEDS: ketorolac 10 mg Tablet PO (02:19)
[2022-12-04 03:46] VITALS: BP 117/67; PULSE 72; RESP 17; TEMP 36.8; O2SAT 98
[2022-12-04 07:44] VITALS: BP 127/70; PULSE 61; RESP 16; TEMP 36.4; O2SAT 97
[2022-12-04 08:00] VITALS: PULSE 71; RESP 16; O2SAT 98
[2022-12-04] MEDS: predniSONE 20 mg Tablet 40 MG PO (09:05)
[2022-12-04] MEDS: cefUROXime 250 mg Tablet 500 MG PO (09:06)
--- NOTE | 2022-12-04 10:50 | PM.DCS ---
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 I have given her referral to see compliance monitor at [facility]. She will get Medrol tapering dose along anti-inflammatory analgesics. She has been having regular bowel movement for last 48 hours, no active nausea or vomiting, tolerating her diet. Physical Exam Narrative: Awake and alert Tolerating diet Pleasant cooperative Multiple skin tattoos Skin piercing Abdomen soft Pleasant cooperative no new focal deficit Discharge Data Studies Completed and Pending Completed Studies During Hospitalization Category Date Time Status CT abdomen pelvis w con* [id number] Stat Cat Scan 11/29/22 18:15 Completed CXRP [XR chest 1V portable [id number]] Stat Exams 11/29/22 20:42 Completed XR KUB portable [id number] Urgent Exams 12/02/22 08:10 Completed Radiology Impressions Abdomen/Pelvis CT 11/29/22 18:15 IMPRESSION: 1. Small bowel obstruction, as described above. 2. Bilateral adnexal cystic lesions and/or hydrosalpinx, measuring up to 5.7 x 4.5 cm on the right and 3.5 x 3.2 cm on the left. If clinically indicated, pelvic ultrasound may be obtained for further evaluation. 3. Additional findings, as above. Chest X-Ray 11/29/22 20:42 IMPRESSION: NG tube in adequate position. KUB X-Ray 12/02/22 08:10 IMPRESSION: Nonobstructive bowel gas pattern. Some gas and fecal material in the descending colon and rectosigmoid colon. Laboratory Results WBC 7.5 10^3/uL (4.0-10.0) 12/03/22 04:47 RBC 3.92 10^6/uL (4.1-5.3) L 12/03/22 04:47 Hgb 10.9 g/dL (11.5-15.3) L 12/03/22 04:47 Hct 34.5 % (37.0-47.0) L 12/03/22 04:47 MCV 88.0 fl (81-99) 12/03/22 04:47 MCH 27.8 pg (28.0-34.0) L 12/03/22 04:47 MCHC 31.6 g/dL (30.0-36.0) 12/03/22 04:47 RDW 13.9 % (12.1-15.1) 12/03/22 04:47 Plt Count 232 10^3/cmm (130-400) 12/03/22 04:47 MPV 11.0 fL (7.4-10.4) H 12/03/22 04:47 Neut % (Auto) 63.6 % 12/03/22 04:47 Lymph % (Auto) 30.7 % 12/03/22 04:47 [place] % (Auto) 5.4 % 12/03/22 04:47 Eos % (Auto) 0.1 % 12/03/22 04:47 Baso % (Auto) 0.1 % 12/03/22 04:47 Neut # (Auto) 4.78 10^3/uL (1.8-7.7) 12/03/22 04:47 Lymph # (Auto) 2.3 10^3/uL (0.8-4.8) 12/03/22 04:47 [place] # (Auto) 0.4 10^3/uL (0.2-0.9) 12/03/22 04:47 Eos # (Auto) 0.0 10^3/uL (0.0-0.8) 12/03/22 04:47 Baso # (Auto) 0.0 10^3/uL (0.0-0.1) 12/03/22 04:47 Nucleated RBC % (auto) 0 % 12/03/22 04:47 Nucleated RBCs # 0.0 /100WBC 12/03/22 04:47 Sodium 145 mmol/L (136-145) 12/01/22 01:52 Potassium 3.7 mmol/L (3.5-5.1) 12/01/22 01:52 Chloride 112 mmol/L (98-107) H 12/01/22 01:52 Carbon Dioxide 25 mmol/L (22-29) 12/01/22 01:52 Anion Gap 11.7 (5-19) 12/01/22 01:52 BUN 9 mg/dL (6-20) 12/01/22 01:52 Creatinine 0.6 mg/dL (0.5-0.9) 12/01/22 01:52 GFR Calculation 110.2 mL/min (90-130) 12/01/22 01:52 Glucose 100 mg/dL (65-115) 12/01/22 01:52 Calculated Osmolality 299 mOsm/kg (285-295) H 12/01/22 01:52 Calcium 7.8 mg/dL (8.5-10.5) L 12/01/22 01:52 Magnesium 1.7 mg/dL (1.7-2.3) 11/30/22 05:18 Total Bilirubin 0.3 mg/dL (0.15-1.2) 11/30/22 05:18 AST 18 U/L (0-32) 11/30/22 05:18 ALT 11 U/L (0-33) 11/30/22 05:18 Alkaline Phosphatase 74 U/L (35-105) 11/30/22 05:18 C-Reactive Protein 7.6 mg/L (0.0-4.9) H 11/30/22 05:18 Total Protein 6.2 g/dL (6.6-8.7) L D 11/30/22 05:18 Albumin 3.6 g/dL (3.5-5.2) 11/30/22 05:18 Globulin 2.6 g/dL (1.3-4.6) 11/30/22 05:18 Lipase 35 U/L (13-60) 11/29/22 18:12 Urine Color Yellow (Yellow) 11/29/22 18:54 Urine Appearance Cloudy (CLEAR) A 11/29/22 18:54 Urine pH 8 (5-7) H 11/29/22 18:54 Ur Specific [place] 1.010 (1.005-1.030) 11/29/22 18:54 Urine Protein Neg (Negative) 11/29/22 18:54 Urine Glucose (UA) Norm (Normal) 11/29/22 18:54 Urine Ketones Negative (Negative) 11/29/22 18:54 Urine Blood Neg (Negative) 11/29/22 18:54 Urine Nitrate Positive (Negative) H 11/29/22 18:54 Urine Bilirubin Neg (Negative) 11/29/22 18:54 Urine Urobilinogen Neg mg/dL (Negative) 11/29/22 18:54 Ur Leukocyte Esterase Trace (Negative) H 11/29/22 18:54 Urine RBC Rare /hpf (0-2) 11/29/22 18:54 Urine WBC 15-25 /hpf (0-5) H 11/29/22 18:54 Ur Squamous Epith Cells 0-4 /hpf (0-5) H 11/29/22 18:54 Amorphous Sediment 2+ /hpf 11/29/22 18:54 Urine Bacteria 3+ /hpf (NONE) H 11/29/22 18:54 Urine Mucus 2+ /hpf 11/29/22 18:54 Urine Opiates Screen Positive ng/mL (Negative) H 11/29/22 18:54 Ur Barbiturates Screen Negative ng/mL (Negative) 11/29/22 18:54 Ur Phencyclidine Scrn Negative ng/mL (Negative) 11/29/22 18:54 Ur Amphetamines Screen Negative ng/mL (Negative) 11/29/22 18:54 U Benzodiazepines Scrn Negative ng/mL (Negative) 11/29/22 18:54 Urine Cocaine Screen Negative ng/mL (Negative) 11/29/22 18:54 U Marijuana (THC) Screen Negative ng/mL (Negative) 11/29/22 18:54 Vitals Last Vital Signs Temp 97.6 F 12/04/22 07:44 Pulse 71 12/04/22 08:00 Resp 16 12/04/22 08:00 BP 127/70 12/04/22 07:44 Pulse Ox 98 12/04/22 08:00 O2 Del Method 12/04/22 08:00 Discharge Plan Discharge Patient Disposition: Home Condition: Stable Prescriptions: New cefuroxime axetil 250 mg Tablet 500 mg PO BID Qty: 10 0RF ketorolac 10 mg Tablet 10 mg PO Q8H PRN (Reason: Pain) Qty: 20 0RF Medrol (Mykel) 4 mg tablets,dose pack See Rx Instructions .ROUTE .COMPLEX Qty: 21 0RF Rx Instructions: orally per package directions ondansetron HCl 4 mg tablet 4 mg PO DAILY Qty: 20 0RF Discharge Orders: Discharge Order (Routine); Ordered 12/04/22 Ordered By: Indira York Referrals: Gretchen Adam MD [Referring] - 2 weeks ([facility] will call you with an appointment.) Raheem Matos MD [Physician] - 12/07/22 12:45 pm Discharge Diet: GI Soft Discharge Activity: Increase activity as tolerated Patient Instructions: Cefuroxime (By mouth), Ketorolac (By mouth) (Toradol), Methylprednisolone (By mouth), Ondansetron (By mouth), Crohn Disease (GEN), Opioid Safety Discharge Attestations Time Spent in Discharge Care*: less than 30 min Quality Metrics Clinical Quality Measures [ No reported AMI, CVA or VTE this stay] Coding Level of Care Code Acute Code for [facility] Fwd Diagnoses Small bowel obstruction K56.609 Anxiety F41.9 Crohn's disease K50.90 Dehydration E86.0
[2022-12-04 11:35] VITALS: BP 107/69; PULSE 76; RESP 18; TEMP 36.8; O2SAT 96
[2022-12-04 11:46] VITALS: BP 107/69; PULSE 76; RESP 18; TEMP 36.8; O2SAT 96
== END 2022-12-04 11:46 | disposition home or self-care (01) | DRG 386 ==
LOC: ER 20:53 → MEDSURG 21:10
PROVIDERS: Family Medicine; Internal Medicine; Admitting Provider Internal Medicine; Emergency Provider Emergency Medicine; Visit Provider Internal Medicine
DX: K50.012 Crohn's disease of small intestine with intestinal obstruction (principal); N39.0 Urinary tract infection, site not specified; F41.9 Anxiety disorder, unspecified; E86.0 Dehydration; F15.11 Other stimulant abuse, in remission; Z90.49 Acquired absence of other specified parts of digestive tract; F17.210 Nicotine dependence, cigarettes, uncomplicated; K59.00 Constipation, unspecified
CPT/HCPCS: 36415; 71045; 74018; 74177; 80048; 80053; 80306; 81001; 83690; 83735; 85025; 86140; 87077; 87086; 87186; 96365; 96372; 96375; 96376; 99231; 99254; 99285; J0696; J1170; J1650; J1885; J2060; J2270; J2405; J2920; J7030; J7042; J7512; Q9967

== ENCOUNTER 2023-03-24 12:50 | Emergency (ER) | payer MEDICAID, SELFPAY ==
[2023-03-24 12:56] VITALS: BP 126/80; PULSE 69; RESP 18; TEMP 36.5; O2SAT 100; BMI 24.3
[2023-03-24 13:16] VITALS: BP 126/80; PULSE 82; RESP 16; O2SAT 97
--- NOTE | 2023-03-24 13:25 | ED_ITS ---
HPI - Abdominal Pain General: Chief Complaint: Abdominal Pain Stated Complaint: abd pain, N/V Time Seen by Provider: 03/24/23 13:01 Source: patient Limitations: no limitations History of Present Illness: This 42-year-old female with a history of Crohn's disease (s/p small bowel resection in 2002) presents to the ER with abdominal pain that started 3 days ago. It is associated with nausea, vomiting and diarrhea. Yesterday, patient vomited about 3 or 4 times and had diarrhea the whole day. Today, she has vomited 3 times and has had 3 bowel movements. There is no blood in the vomitus or stool. Patient has no fever, chest pain or shortness of breath. She appears clinically stable. Associated Symptoms: Reports diarrhea, nausea and vomiting; Denies chills and dysuria Review of Systems Const: Denies: chills, body aches or change in appetite Eyes: Denies: change in vision or eye discharge ENMT: Denies: throat pain or dental pain Card: Denies: chest pain or lightheadedness GI: Reports: abdominal pain, nausea, vomiting and diarrhea : Denies: dysuria Musc: Denies: neck pain or back pain Neuro: Denies: headache(s) or weakness in extremities Psych: Denies: depression Jacky/Lymph: Denies: easy bruising All/Imm: Denies: urticaria, tongue swelling or facial swelling PFSH ED PFSH: Medical History (Updated 03/24/23 @ 17:45 by Meek Bansal MD) Acute cystitis Anxiety Crohn's disease Dehydration Small bowel obstruction Surgical History (Updated 11/29/22 @ 20:21 by Indira York MD) History of bowel resection S/P appendectomy Family History (Updated 11/29/22 @ 20:21 by Indira York MD) Denies family history of CAD (coronary artery disease) Social History Smoking and tobacco status: current every day smoker cigarettes Packs smoked per day: 0.25 Alcohol intake: never Substance/Drug Use: current Substance/Drug use frequency: other Other substance/drug use details: IV drug user Female Reproductive History: Spontaneous abortions: No Physical Exam Const: COMMON NORMALS: no acute distress, patient oriented x3, no limitations and alert HENMT: COMMON NORMALS: normocephalic HEAD & SCALP: normocephalic Eye: COMMON NORMALS: EOMs intact bilaterally Neck/C-Spine: COMMON NORMALS: full ROM and supple Chest: COMMONS NORMALS: normal inspection of the chest Resp: COMMON NORMALS: normal respiratory effort, No retractions, No use of a ccessory muscles and clear to auscultation bilaterally AUSCULTATION: clear to auscultation bilaterally Cardio: COMMON NORMALS: regular rate, regular rhythm and No murmurs present (Cardio) RATE: regular rate RHYTHM: regular rhythm GI: COMMON NORMALS: Normal to inspection, nondistended, normoactive bowel sounds present and Soft to palpation PALPATION: Yes Soft to palpation, Yes Tenderness to palpation present (GI) (Left side of the abdomen) and No Rebound tenderness present OTHER: Healed surgical scar from previous surgery. : COMMON NORMALS: Yes no CVA tenderness BLADDER/KIDNEY EXAM: Yes no CVA tenderness Back/Pelvis: COMMON NORMALS: no CVA tenderness and no thoracic nor lumbar tenderness Extremity: GENERAL: Yes normal exam except as noted Neuro: COMMON NORMALS: patient oriented x3 and no focal motor deficits SENSORIUM/ORIENTATION: Yes alert Psych: COMMON NORMALS: mental status grossly normal and cooperative Course Vital Signs: Vital signs: Vital Signs Temperature 97.7 F 03/24/23 12:56 Pulse Rate 60 03/24/23 16:19 Respiratory Rate 16 03/24/23 16:19 Blood Pressure 126/80 03/24/23 16:19 Pulse Oximetry 96 03/24/23 16:19 Oxygen Delivery Me thod Room Air 03/24/23 16:19 MDM - Abdominal Pain Medical Decision Making Medical decision making: Patient has a history of Crohn's disease and she presents with abdominal pain, nausea and vomiting and diarrhea. On exam, abdomen is nonsurgical. CT abdomen reveals no evidence of bowel obstruction and no acute findings. She will be treated symptomatically but was advised to return if she develops any new or worsening symptoms. Patient verbalized understanding and agrees with the plan. Lab Data 03/24/23 13:25 03/24/23 13:25 Labs/Radiology: Radiology Impressions Abdomen/Pelvis CT 03/24/23 14:02 IMPRESSION: 1. Very small rounded hypodense focus lower pole cortex left kidney likely tiny renal cyst. 2. Evidence for prior bowel resection and appendectomy. No findings of small-bowel obstruction. 3. Bilateral adnexal cystic lesions and/or hydrosalpinx, with similar appearance to previous exam. COMMENTS: Consistent with the [employer]'s Incidental Findings Committee white paper (J Am Wendy Radiol 2018): Any incidental renal lesion less than 1 cm or classified as too small to characterize, or any incidental cystic renal lesion characterized as simple-appearing, is likely benign. No follow-up imaging is recommended for these lesions per consensus recommendations based on imaging criteria. Laboratory Results WBC 5.7 10^3/uL (4.0-10.0) 03/24/23 13:25 RBC 5.23 10^6/uL (4.1-5.3) 03/24/23 13:25 Hgb 14.7 g/dL (11.5-15.3) 03/24/23 13:25 Hct 46.2 % (37.0-47.0) 03/24/23 13:25 MCV 88.3 fl (81-99) 03/24/23 13:25 MCH 28.1 pg (28.0-34.0) 03/24/23 13:25 MCHC 31.8 g/dL (30.0-36.0) 03/24/23 13:25 RDW 14.6 % (12.1-15.1) 03/24/23 13:25 Plt Count 278 10^3/cmm (130-400) 03/24/23 13:25 MPV 10.7 fL (7.4-10.4) H 03/24/23 13:25 Neut % (Auto) 51.5 % 03/24/23 13:25 Lymph % (Auto) 36.8 % 03/24/23 13:25 [place] % (Auto) 7.3 % 03/24/23 13:25 Eos % (Auto) 3.5 % 03/24/23 13:25 Baso % (Auto) 0.7 % 03/24/23 13:25 Neut # (Auto) 2.95 10^3/uL (1.8-7.7) 03/24/23 13:25 Lymph # (Auto) 2.1 10^3/uL (0.8-4.8) 03/24/23 13:25 [place] # (Auto) 0.4 10^3/uL (0.2-0.9) 03/24/23 13:25 Eos # (Auto) 0.2 10^3/uL (0.0-0.8) 03/24/23 13:25 Baso # (Auto) 0.0 10^3/uL (0.0-0.1) 03/24/23 13:25 Nucleated RBC % (auto) 0 % 03/24/23 13:25 Nucleated RBCs # 0.0 /100WBC 03/24/23 13:25 Sodium 137 mmol/L (136-145) 03/24/23 13:25 Potassium 4.1 mmol/L (3.5-5.1) 03/24/23 13:25 Chloride 100 mmol/L (98-107) 03/24/23 13:25 Carbon Dioxide 27 mmol/L (22-29) 03/24/23 13:25 Anion Gap 14.1 (5-19) 03/24/23 13:25 BUN 7 mg/dL (6-20) 03/24/23 13:25 Creatinine 0.6 mg/dL (0.5-0.9) 03/24/23 13:25 GFR Calculation 110.2 mL/min (90-130) 03/24/23 13:25 Glucose 82 mg/dL (65-115) 03/24/23 13:25 Calculated Osmolality 281 mOsm/kg (285-295) L 03/24/23 13:25 Calcium 9.5 mg/dL (8.5-10.5) 03/24/23 13:25 Total Bilirubin 0.4 mg/dL (0.15-1.2) 03/24/23 13:25 AST 24 U/L (0-32) 03/24/23 13:25 ALT 16 U/L (0-33) 03/24/23 13:25 Alkaline Phosphatase 89 U/L (35-105) 03/24/23 13:25 Total Protein 7.7 g/dL (6.6-8.7) 03/24/23 13:25 Albumin 4.8 g/dL (3.5-5.2) 03/24/23 13:25 Globulin 2.9 g/dL (1.3-4.6) 03/24/23 13:25 Lipase 36 U/L (13-60) 03/24/23 13:25 Discharge Plan Discharge Patient Disposition: Home Clinical Impression: Abdominal pain, Gastroenteritis Condition: Stable Prescriptions: New tramadol 50 mg tablet 50 mg PO TID PRN (Reason: pain) Qty: 20 0RF Reglan 10 mg tablet 10 mg PO Q6H Qty: 20 0RF Discharge Orders: Discharge ED (Routine); Ordered 03/24/23 Ordered By: Meek Bansal Referrals: Raheem Matos MD [Primary Care Provider] - Discharge Diet: Advance as tolerated Discharge Activity: Resume usual activity Patient Instructions: Abdominal Pain (ED), Opioid Safety, Pain Management Activity Restrictions/Additional Instructions: Take tramadol as needed for pain. Take Reglan for nausea/vomiting. Maintain adequate fluid intake. Follow-up with your primary care provider in 3 to 5 days for reevaluation. Return with new or worsening symptoms. Coding Level of Care Code ED [employer] for August[employer]
--- NOTE | 2023-03-24 14:02 | CTR_ITS ---
PROCEDURE INFORMATION: Exam: CT Abdomen And Pelvis With Contrast Exam date and time: 03/24/2023 2:29 PM Age: 42 years old Clinical indication: Abdominal pain; Generalized; Prior surgery; Surgery date: 6+ months; Surgery type: Appy; Additional info: Left sided abdominal pain TECHNIQUE: Imaging protocol: Computed tomography of the abdomen and pelvis with contrast. Radiation optimization: All CT scans at this facility use at least one of these dose optimization techniques: automated exposure control; mA and/or kV adjustment per patient size (includes targeted exams where dose is matched to clinical indication); or iterative reconstruction. Contrast material: OMNI 350; Contrast volume: 100 ml; Contrast route: INTRAVENOUS (IV); REPORTING DATA: Count of CT and Cardiac NM exams in prior 12 months: This patient has received [address] and 0 known cardiac nuclear medicine studies in the 12 months prior to the current study. COMPARISON: CT abdomen pelvis w con* [id number] 11/29/2022 7:08 PM RADIATION DOSE METRICS: Total DLP (mGy-cm): 407.46 FINDINGS: Lungs: No significant infiltrate or effusion within the visualized lung bases. Liver: Normal. No mass. Gallbladder and bile ducts: Normal. No calcified stones. No ductal dilation. Pancreas: Normal. No ductal dilation. Spleen: Normal. No splenomegaly. Adrenal glands: Normal. No mass. Kidneys and ureters: Very small rounded hypodense focus within the lower pole cortex of the left kidney, too small to characterize and likely tiny renal cortical cyst. Kidneys appear unremarkable otherwise. No perinephric stranding. Stomach and bowel: Evidence for prior bowel resection as noted with prior exam. No findings to indicate small bowel obstruction with today's exam as suggested with prior exam. No significant mucosal thickening. Appendix: Appendix is surgically absent. Intraperitoneal space: No free fluid or ascites. No free air is seen. Vasculature: Unremarkable. No abdominal aortic aneurysm. Lymph nodes: Unremarkable. No enlarged lymph nodes. Urinary bladder: Unremarkable as visualized. Reproductive: Bilateral adnexal hypodense cystic foci ovarian cyst and/or hydrosalpinx, as noted with prior exam. This includes approximally 2 foci of 4 and 3.5 cm on the right and approximally 3.5 cm focus on the left. Bones/joints: Osseous structures show no acute abnormality. Soft tissues: Unremarkable. CT/CT abdomen pelvis w con* [id number] IMPRESSION: 1. Very small rounded hypodense focus lower pole cortex left kidney likely tiny renal cyst. 2. Evidence for prior bowel resection and appendectomy. No findings of small-bowel obstruction. 3. Bilateral adnexal cystic lesions and/or hydrosalpinx, with similar appearance to previous exam. COMMENTS: Consistent with the [employer]'s Incidental Findings Committee white paper (J Am Wendy Radiol 2018): Any incidental renal lesion less than 1 cm or classified as too small to characterize, or any incidental cystic renal lesion characterized as simple-appearing, is likely benign. No follow-up imaging is recommended for these lesions per consensus recommendations based on imaging criteria.
[2023-03-24 14:11] LABS: Basophils % 0.7 %; Eosinophils # 0.2 10^3/uL (0.0-0.8); Eosinophils % 3.5 %; Hematocrit 46.2 % (37.0-47.0); Hemoglobin 14.7 g/dL (11.5-15.3); Lymphocytes # 2.1 10^3/uL (0.8-4.8); Lymphocytes % 36.8 %; Mean Corpuscular HGB Conc 31.8 g/dL (30.0-36.0); Mean Corpuscular Hemoglobin 28.1 pg (28.0-34.0); Mean Corpuscular Volume 88.3 fl (81-99); Mean Platelet Volume 10.7 fL (7.4-10.4); Monocytes # 0.4 10^3/uL (0.2-0.9); Monocytes % 7.3 %; Neutrophils # 2.95 10^3/uL (1.8-7.7); Neutrophils % 51.5 %; Nucleated Red Blood Cells % 0 %; Platelet Count 278 10^3/cmm (130-400); Red Blood Count 5.23 10^6/uL (4.1-5.3); Red Cell Distribution Width 14.6 % (12.1-15.1); White Blood Count 5.7 10^3/uL (4.0-10.0)
[2023-03-24] MEDS: morphine 4 mg/mL SDV 1 mL IVP (14:18)
[2023-03-24] MEDS: metoclopramide 5 mg/mL SDV 2 mL 10 MG IVP (14:18)
[2023-03-24 14:25] LABS: Alanine Aminotransferase 16 U/L (0-33); Albumin Level 4.8 g/dL (3.5-5.2); Alkaline Phosphatase 89 U/L (35-105); Anion Gap 14.1 (5-19); Aspartate Amino Transferase 24 U/L (0-32); Blood Urea Nitrogen 7 mg/dL (6-20); Calcium 9.5 mg/dL (8.5-10.5); Carbon Dioxide 27 mmol/L (22-29); Chloride 100 mmol/L (98-107); Globulin 2.9 g/dL (1.3-4.6); Glomerular Filtration Rate 110.2 mL/min (90-130); Glucose 82 mg/dL (65-115); Lipase 36 U/L (13-60); Osmolality Calculated 281 mOsm/kg (285-295); Potassium 4.1 mmol/L (3.5-5.1); Sodium 137 mmol/L (136-145); Total Bilirubin 0.4 mg/dL (0.15-1.2); Total Protein 7.7 g/dL (6.6-8.7)
[2023-03-24] MEDS: iohexol 350 mg/mL 500 mL Btl (per mL) IV (14:48)
[2023-03-24] MEDS: sodium chloride 0.9% 1,000 ML 999 ML IV (14:57)
[2023-03-24 16:19] VITALS: BP 126/80; PULSE 60; RESP 16; O2SAT 96
== END 2023-03-24 18:01 | disposition home or self-care (01) ==
PROVIDERS: Emergency Provider Family Medicine; PCP Family Medicine
DX: K52.9 Noninfective gastroenteritis and colitis, unspecified (principal); F17.210 Nicotine dependence, cigarettes, uncomplicated
CPT/HCPCS: 74177; 80053; 83690; 85025; 96374; 96375; 99285; J2270; J2765; J7030; Q9967

== ENCOUNTER → 2023-08-04 10:29 | Outpatient (BNVA) | payer MEDICAID, SELFPAY | PROVIDERS: PCP Family Medicine; Visit Provider Nurse Practitioner Family | DX: R69 Illness, unspecified (principal); Z11.52 Encounter for screening for COVID-19 | CPT/HCPCS: 87400; 87426 ==

== ENCOUNTER 2023-08-10 13:51 | Inpatient (IN) | payer MEDICAID, SELFPAY ==
[2023-08-10] VITALS (8 sets, daily range): BP systolic 103–138; BP diastolic 68–90; PULSE 71–94; RESP 16–19; TEMP 36.6–36.9; O2SAT 94–98; BMI 24.3
--- NOTE | 2023-08-10 14:14 | ED_ITS ---
Documented by User: [email or web address] Quiles 08/10/23 17:03 HPI - Abdominal Pain General: Chief Complaint: Abdominal Pain Stated Complaint: Abd Pain Time Seen by Provider: 08/10/23 14:12 History of Present Illness: 43-year-old female comes in today for complaints of abdominal pain and discomfort. Patient appears nontoxic. Patient appears in moderate pain. Patient denies any routine medicines at this time. Patient has a history of Crohn's disease with bowel resection. Patient is also had an appendectomy in the past. Patient reports a history of obstruction. Patient does admit to a history of methamphetamine use disorder. Associated Symptoms: Reports nausea Review of Systems General: Reports: 10 or more systems reviewed and unremarkable except in HPI and below Card: Reports: chest pain Resp: Denies: dyspnea GI: Reports: abdominal pain and nausea Musc: Denies: back pain Skin/Breast: Denies: rash PFSH ED PFSH: Medical History Acute cystitis Anxiety Crohn's disease Dehydration Small bowel obstruction Surgical History History of bowel resection S/P appendectomy Family History Denies family history of CAD (coronary artery disease) Social History Smoking and tobacco/nicotine status: current every day tobacco/nicotine user cigarettes Packs smoked per day: 0.25 Alcohol intake: never Substance/Drug Use: current Substance/Drug use frequency: other Other substance/drug use details: IV drug user Female Reproductive History: Spontaneous abortions: No Physical Exam Const: COMMON NORMALS: alert HENMT: COMMON NORMALS: normocephalic HEAD & SCALP: normocephalic MOUTH: Normal oral and palatal mucosa present Neck/C-Spine: COMMON NORMALS: full ROM and no meningeal signs Resp: COMMON NORMALS: normal respiratory effort and clear to auscultation bilaterally AUSCULTATION: clear to auscultation bilaterally Cardio: COMMON NORMALS: regular rate and regular rhythm RATE: regular rate RHYTHM: regular rhythm GI: COMMON NORMALS: Soft to palpation AUSCULTATION: Yes normoactive bowel sounds PALPATION: Yes Soft to palpation, Yes Tenderness to palpation present (GI) (Generalized), No Guarding due to palpation present (GI) and No Rigid due to palpation : COMMON NORMALS: Yes no CVA tenderness BLADDER/KIDNEY EXAM: Yes no CVA tenderness Back/Pelvis: COMMON NORMALS: no CVA tenderness Extremity: COMMON NORMALS: no pedal edema Neuro: SENSORIUM/ORIENTATION: Yes alert MENINGEAL SIGNS: Yes no meningeal signs Skin: COMMON NORMALS: turgor normal GENERAL SKIN EXAM: turgor normal Course Vital Signs: Vital signs: Vital Signs Temperature 98.4 F 08/10/23 13:53 Pulse Rate 94 08/10/23 15:26 Respiratory Rate 17 08/10/23 15:26 Blood Pressure 116/90 08/10/23 15:26 Pulse Oximetry 95 08/10/23 15:26 Oxygen Delivery Me thod Room Air 08/10/23 15:26 MDM - Abdominal Pain Medical Decision Making 43-year-old female comes in today for complaints of abdominal pain with nausea. On exam abdomen soft with normal active bowel sounds. Patient does have generalized tenderness but no guarding or rebound tenderness. Vital signs are normal. Differential diagnosis includes but not limited to Crohn's flare, gastroenteritis, constipation, bowel obstruction, gallbladder disease. CBC showed some mild leukocytosis at 12,000, CMP was unremarkable. Urinalysis showed no significant abnormality. CT of the abdomen pelvis without contrast noted increased fecal quantity in the right lower quadrant with dilation of the small bowel suggesting early small bowel obstruction or moderate bowel obstruction. I reviewed this with Dr. Funes, ER attending, who agreed with plan to reach out to Dr. Rosenbaum, surgeon on-call, for consultation. Dr. Rosenbaum recommended admission to the hospitalist for small bowel obstruction and Crohn's disease he wanted us to start her on IV fluids, trial of mag citrate, and initiate NG tube if needed. Dr. York, hospitalist, was consulted for admission and agreed to plan and treatment at this time. Patient needs admission to hospital for monitoring and further evaluation of small bowel obstruction for possible surgical intervention. Lab Data 08/10/23 14:28 08/10/23 14:28 Labs/Radiology: Laboratory Results WBC 12.96 10^3/uL (3.29-11.43) H 08/10/23 14:28 RBC 5.31 10^6/uL (3.85-5.65) 10/13/23 14: Hgb 15.60 g/dL (11.27-16.99) 08/10/23 14: Hct 47.1 % (36-47) H 08/10/23 14: MCV 88.7 fl (85-98) 08/10/23 14: MCH 29.4 pg (27-33) 08/10/23 14: MCHC 33.1 g/dL (30-55) 08/10/23 14: RDW 13.2 % (12.1-15.1) 08/10/23 14: Plt Count 243 10^3/cmm (157-399) 08/10/23 14: MPV 10.4 fL (7.4-10.4) 08/10/23 14: Neut % (Auto) 80.8 % 08/10/23 14: Lymph % (Auto) 14.2 % 08/10/23 14: [place] % (Auto) 3.2 % 08/10/23 14: Eos % (Auto) 1.1 % 08/10/23 14: Baso % (Auto) 0.4 % 08/10/23 14: Neut # (Auto) 10.48 10^3/uL (1.8-7.7) H 08/10/23 14: Lymph # (Auto) 1.8 10^3/uL (0.8-4.8) 08/10/23 14: [place] # (Auto) 0.4 10^3/uL (0.2-0.9) 08/10/23 14: Eos # (Auto) 0.1 10^3/uL (0.0-0.8) 08/10/23 14: Baso # (Auto) 0.1 10^3/uL (0.0-0.1) 08/10/23 14: Nucleated RBC % (auto) 0 % 08/10/23 14: Nucleated RBCs # 0.0 /100WBC 08/10/23 14: Sodium 141 mmol/L (136-145) 08/10/23 14: Potassium 4.0 mmol/L (3.5-5.1) 08/10/23 14: Chloride 105 mmol/L (98-107) 08/10/23 14:28 Carbon Dioxide 23 mmol/L (22-29) 08/10/23 14:28 Anion Gap 17.0 (5-19) 08/10/23 14:28 BUN 17 mg/dL (6-20) 08/10/23 14:28 Creatinine 0.7 mg/dL (0.5-0.9) 08/10/23 14:28 GFR Calculation 91.8 mL/min (90-130) 08/10/23 14:28 Glucose 96 mg/dL (65-115) 08/10/23 14:28 Calculated Osmolality 293 mOsm/kg (285-295) 08/10/23 14:28 Calcium 9.3 mg/dL (8.5-10.5) 08/10/23 14:28 Total Bilirubin 0.2 mg/dL (0.15-1.2) 08/10/23 14:28 AST 19 U/L (0-32) 08/10/23 14:28 ALT 12 U/L (0-33) 08/10/23 14:28 Alkaline Phosphatase 96 U/L (35-105) 08/10/23 14:28 Total Protein 7.9 g/dL (6.6-8.7) 08/10/23 14:28 Albumin 4.8 g/dL (3.5-5.2) 08/10/23 14:28 Globulin 3.1 g/dL (1.3-4.6) 08/10/23 14:28 Lipase 29 U/L (13-60) 08/10/23 14:28 HCG, Qual Negative (Negative) 08/10/23 14:28 Urine Color Yellow (Yellow) 08/10/23 14:13 Urine Appearance Clear (CLEAR) 08/10/23 14:13 Urine pH 5 (5-7) 08/10/23 14:13 Ur Specific [place] 1.025 (1.005-1.030) 08/10/23 14:13 Urine Protein Trace (Negative) 08/10/23 14:13 Urine Glucose (UA) Norm (Normal) 08/10/23 14:13 Urine Ketones Negative (Negative) 08/10/23 14:13 Urine Blood Neg (Negative) 08/10/23 14:13 Urine Nitrate Negative (Negative) 08/10/23 14:13 Urine Bilirubin 1+ (Negative) H 08/10/23 14:13 Urine Urobilinogen Norm mg/dL (Negative) 08/10/23 14:13 Ur Leukocyte Esterase Negative (Negative) 08/10/23 14:13 Urine RBC 0-4 /hpf (0-2) H 08/10/23 14:13 Urine WBC 0-4 /hpf (0-5) H 08/10/23 14:13 Ur Squamous Epith Cells 0-4 /hpf (0-5) H 08/10/23 14:13 Amorphous Sediment Not Reportable 08/10/23 14:13 Urine Bacteria Trace /hpf (NONE) 08/10/23 14:13 Urine Mucus 4+ /hpf 08/10/23 14:13 All radiology interpretation(s) finalized by discharge Discharge Plan Discharge Patient Disposition: Admitted As Inpatient Clinical Impression: Small bowel obstruction Crohn disease Qualifiers: Gastrointestinal tract location: unspecified location Digestive disease complication type: with intestinal obstruction Qualified Code(s): K50.912 - Crohn's disease, unspecified, with intestinal obstruction Condition: Stable Coding Level of Care Code ED Body Trimmer Upholsterer for Chg Fwd Documented by User: Elmo Funes DO 08/10/23 17:11 HPI - Abdominal Pain General: Chief Complaint: Abdominal Pain Stated Complaint: Abd Pain Time Seen by Provider: 08/10/23 14:12 PFSH ED PFSH: Medical History Acute cystitis Anxiety Crohn's disease Dehydration Small bowel obstruction Surgical History History of bowel resection S/P appendectomy Family History Denies family history of CAD (coronary artery disease) Social History Smoking and tobacco/nicotine status: current every day tobacco/nicotine user cigarettes Packs smoked per day: 0.25 Alcohol intake: never Substance/Drug Use: current Substance/Drug use frequency: other Other substance/drug use details: IV drug user Course Vital Signs: Vital signs: Vital Signs Temperature 98.4 F 08/10/23 13:53 Pulse Rate 94 08/10/23 15:26 Respiratory Rate 17 08/10/23 15:26 Blood Pressure 116/90 08/10/23 15:26 Pulse Oximetry 95 08/10/23 15:26 Oxygen Delivery Me thod Room Air 08/10/23 15:26 MDM - Abdominal Pain Medical Decision Making 43-year-old female comes in today for complaints of abdominal pain with nausea. On exam abdomen soft with normal active bowel sounds. Patient does have generalized tenderness but no guarding or rebound tenderness. Vital signs are normal. Differential diagnosis includes but not limited to Crohn's flare, gastroenteritis, constipation, bowel obstruction, gallbladder disease. CBC showed some mild leukocytosis at 12,000, CMP was unremarkable. Urinalysis teresa wed no significant abnormality. CT of the abdomen pelvis without contrast noted increased fecal quantity in the right lower quadrant with dilation of the small bowel suggesting early small bowel obstruction or moderate bowel obstruction. I reviewed this with Dr. Funes, ER attending, who agreed with plan to reach out to Dr. Rosenbaum, surgeon on-call, for consultation. Dr. Rosenbaum recommended admission to the hospitalist for small bowel obstruction and Crohn's disease he wanted us to start her on IV fluids, trial of mag citrate, and initiate NG tube if needed. Dr. York, hospitalist, was consulted for admission and agreed to plan and treatment at this time. Patient needs admission to hospital for monitoring and further evaluation of small bowel obstruction for possible surgical intervention. Chart reviewed and patient discussed with midlevel. Agree with assessment and plan. Lab Data 08/10/23 14:28 08/10/23 14:28 Labs/Radiology: Laboratory Results WBC 12.96 10^3/uL (3.29-11.43) H 08/10/23 14:28 RBC 5.31 10^6/uL (3.85-5.65) 08/10/23 14:28 Hgb 15.60 g/dL (11.27-16.99) 08/10/23 14:28 Hct 47.1 % (36-47) H 08/10/23 14: MCV 88.7 fl (85-98) 08/10/23 14: MCH 29.4 pg (27-33) 08/10/23 14: MCHC 33.1 g/dL (30-55) 08/10/23 14: RDW 13.2 % (12.1-15.1) 08/10/23 14: Plt Count 243 10^3/cmm (157-399) 08/10/23 14: MPV 10.4 fL (7.4-10.4) 08/10/23 14: Neut % (Auto) 80.8 % 08/10/23 14: Lymph % (Auto) 14.2 % 08/10/23 14: [place] % (Auto) 3.2 % 08/10/23 14: Eos % (Auto) 1.1 % 08/10/23 14: Baso % (Auto) 0.4 % 08/10/23 14: Neut # (Auto) 10.48 10^3/uL (1.8-7.7) H 08/10/23 14: Lymph # (Auto) 1.8 10^3/uL (0.8-4.8) 08/10/23 14: [place] # (Auto) 0.4 10^3/uL (0.2-0.9) 08/10/23 14: Eos # (Auto) 0.1 10^3/uL (0.0-0.8) 08/10/23 14: Baso # (Auto) 0.1 10^3/uL (0.0-0.1) 08/10/23 14: Nucleated RBC % (auto) 0 % 08/10/23 14: Nucleated RBCs # 0.0 /100WBC 08/10/23 14: Sodium 141 mmol/L (136-145) 08/10/23 14: Potassium 4.0 mmol/L (3.5-5.1) 08/10/23 14:28 Chloride 105 mmol/L (98-107) 08/10/23 14: Carbon Dioxide 23 mmol/L (22-29) 08/10/23 14: Anion Gap 17.0 (5-19) 08/10/23 14:28 BUN 17 mg/dL (6-20) 08/10/23 14:28 Creatinine 0.7 mg/dL (0.5-0.9) 08/10/23 14:28 GFR Calculation 91.8 mL/min (90-130) 08/10/23 14:28 Glucose 96 mg/dL (65-115) 08/10/23 14:28 Calculated Osmolality 293 mOsm/kg (285-295) 08/10/23 14:28 Calcium 9.3 mg/dL (8.5-10.5) 08/10/23 14:28 Total Bilirubin 0.2 mg/dL (0.15-1.2) 08/10/23 14: AST 19 U/L (0-32) 08/10/23 14: ALT 12 U/L (0-33) 08/10/23 14:28 Alkaline Phosphatase 96 U/L (35-105) 08/10/23 14:28 Total Protein 7.9 g/dL (6.6-8.7) 08/10/23 14:28 Albumin 4.8 g/dL (3.5-5.2) 08/10/23 14: Globulin 3.1 g/dL (1.3-4.6) 08/10/23 14:28 Lipase 29 U/L (13-60) 08/10/23 14:28 HCG, Qual Negative (Negative) 08/10/23 14:28 Urine Color Yellow (Yellow) 08/10/23 14:13 Urine Appearance Clear (CLEAR) 08/10/23 14:13 Urine pH 5 (5-7) 08/10/23 14:13 Ur Specific [place] 1.025 (1.005-1.030) 08/10/23 14:13 Urine Protein Trace (Negative) 08/10/23 14:13 Urine Glucose (UA) Norm (Normal) 08/10/23 14:13 Urine Ketones Negative (Negative) 08/10/23 14:13 Urine Blood Neg (Negative) 08/10/23 14:13 Urine Nitrate Negative (Negative) 08/10/23 14:13 Urine Bilirubin 1+ (Negative) H 08/10/23 14:13 Urine Urobilinogen Norm mg/dL (Negative) 08/10/23 14:13 Ur Leukocyte Esterase Negative (Negative) 08/10/23 14:13 Urine RBC 0-4 /hpf (0-2) H 08/10/23 14:13 Urine WBC 0-4 /hpf (0-5) H 08/10/23 14:13 Ur Squamous Epith Cells 0-4 /hpf (0-5) H 08/10/23 14:13 Amorphous Sediment Not Reportable 08/10/23 14:13 Urine Bacteria Trace /hpf (NONE) 08/10/23 14:13 Urine Mucus 4+ /hpf 08/10/23 14:13 Discharge Plan Discharge Patient Disposition: Admitted As Inpatient Clinical Impression: Small bowel obstruction Crohn disease Qualifiers: Gastrointestinal tract location: unspecified location Digestive disease complication type: with intestinal obstruction Qualified Code(s): K50.912 - Crohn's disease, unspecified, with intestinal obstruction Condition: Stable Coding Level of Care Code ED Body Trimmer Upholsterer for Augusto Gonzalez
[2023-08-10 14:43] LABS: Basophils # 0.1 10^3/uL (0.0-0.1); Basophils % 0.4 %; Eosinophils # 0.1 10^3/uL (0.0-0.8); Eosinophils % 1.1 %; Hematocrit 47.1 % (36-47); Lymphocytes # 1.8 10^3/uL (0.8-4.8); Lymphocytes % 14.2 %; Mean Corpuscular HGB Conc 33.1 g/dL (30-55); Mean Corpuscular Hemoglobin 29.4 pg (27-33); Mean Corpuscular Volume 88.7 fl (85-98); Mean Platelet Volume 10.4 fL (7.4-10.4); Monocytes # 0.4 10^3/uL (0.2-0.9); Monocytes % 3.2 %; Neutrophils # 10.48 10^3/uL (1.8-7.7); Neutrophils % 80.8 %; Nucleated Red Blood Cells % 0 %; Platelet Count 243 10^3/cmm (157-399); Red Blood Count 5.31 10^6/uL (3.85-5.65); Red Cell Distribution Width 13.2 % (12.1-15.1); White Blood Count 12.96 10^3/uL (3.29-11.43)
[2023-08-10 14:58] LABS: HCG, Serum Qual Negative (Negative)
--- NOTE | 2023-08-10 15:01 | CT_ITS ---
WS: [id number] CT ABDOMEN AND PELVIS NONCONTRAST HISTORY: abd pain, r/o obstruction, history of Crohn's disease TECHNIQUE: Imaging performed through the abdomen and pelvis. Coronal and sagittal reformats are submi tted. All CT scans at [facility] use at least one of these dose optimization techniques: auto mated exposure control; mA and/or kV adjustment per patient size (includes targeted exams where dose is matched to clinical indication); or iterative reconstruction. DLP: 467.53 mGy.cm COMPARISON: 03/24/2023 Lower thorax: Lung bases are clear. Visualized heart is normal. No hiatal hernia. Liver: Normal size liver. No mass or bile duct dilatation. Gallbladder: Normal gallbladder. No pericholecystic fluid or cholelithiasis. No gallbladder wall thic kening. Pancreas: Normal size and attenuation. Normal pancreatic duct. No pancreatitis or mass. Spleen: Normal. Adrenal glands: Normal. No mass. Right kidney: Normal size kidney with no mass or hydronephrosis. Left kidney: Normal size kidney with no mass or hydronephrosis. Aorta: Normal abdominal aorta, no aneurysm or atherosclerosis. No free fluid, intraperitoneal air or significant lymphadenopathy. GI tract: Stomach is moderately distended with fluid. There is diffuse fluid distention of the nearly entire small bowel with loops measuring up to 2.5 cm. There are also postsurgical clips noted in the RIGHT lower quadrant from prior surgery. There is a loop of small bowel in the mid and RIGHT lower q uadrant with fecalization. There is mild tethering in the RIGHT lower quadrant. Majority of the small bowel loops are dilated. Suspect there is an area of stenosis in the RIGHT lower quadrant. This sten osis may be associated with prior surgical site as this is the area of fecalization. There is still m oderate constipation in the colon is not collapsed. Additional postsurgical clips are noted in the di stal sigmoid and towards the rectum and at the terminal ileum. Abdominal wall: Negative. No hernia. Pelvis: Well-distended urinary bladder. Uterus is midline. Osseous structures: Unremarkable. IMPRESSION: 1. Diffuse small bowel fluid distention with fecalization in the RIGHT lower quadrant. The fecalizat ion is adjacent to an area of prior resection. Suspect developing, at least moderate obstruction in the distal small bowel. The exact transition site is not apparent but typically near the area of feca lization. 2. Prior appendectomy. 3. Additional surgical anastomotic sutures towards the distal sigmoid. 4. No free air. No free fluid.
[2023-08-10 15:04] LABS: Alanine Aminotransferase 12 U/L (0-33); Albumin Level 4.8 g/dL (3.5-5.2); Alkaline Phosphatase 96 U/L (35-105); Aspartate Amino Transferase 19 U/L (0-32); Blood Urea Nitrogen 17 mg/dL (6-20); Calcium 9.3 mg/dL (8.5-10.5); Carbon Dioxide 23 mmol/L (22-29); Chloride 105 mmol/L (98-107); Globulin 3.1 g/dL (1.3-4.6); Glomerular Filtration Rate 91.8 mL/min (90-130); Glucose 96 mg/dL (65-115); Lipase 29 U/L (13-60); Osmolality Calculated 293 mOsm/kg (285-295); Sodium 141 mmol/L (136-145); Total Bilirubin 0.2 mg/dL (0.15-1.2); Total Protein 7.9 g/dL (6.6-8.7)
[2023-08-10] MEDS: morphine 4 mg/mL SDV 1 mL IM (15:22)
[2023-08-10] MEDS: metoclopramide 5 mg/mL SDV 2 mL 10 MG IM (15:22)
[2023-08-10 16:07] LABS: Add Urine Microscopic? YES; Bilirubin Urine 1+ (Negative); Blood Urine Neg (Negative); Glucose Urine UA Norm (Normal); Ketones Urine Negative (Negative); Leukocyte Esterase Urine Negative (Negative); Nitrate Urine Negative (Negative); Protein Urine Trace (Negative); Specific Gravity, Urine 1.025 (1.005-1.030); Urine Appearance Clear (CLEAR); Urine Color Yellow (Yellow); Urobilinogen Urine Norm (Negative); pH Urine 5 (5-7)
[2023-08-10 16:08] LABS: Add Urine Culture? No; Bacteria Urine TRACE /hpf; Mucus Urine 4+ /hpf; RBC Urine 0-4 /hpf (0-2); Squamous Epithelial Cell Urine 0-4 /hpf (0-5); WBC Urine 0-4 /hpf (0-5)
[2023-08-10] MEDS: magnesium citrate Btl 296 mL PO (16:50)
--- NOTE | 2023-08-10 17:07 | P.HP_ITS ---
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 Patient stating that her symptoms started this morning she has had multiple episodes of nausea vomiting, she has not noticed any blood in stool or mucus. She has not noticed any fever. She is stating that she has been clean she has not used methamphetamine for last 1 year, does smoke on daily basis. Does not drink alcohol on daily basis. Review of Systems Const: Reports: chills Eyes: Denies: change in vision ENMT: Denies: throat pain Card: Denies: chest pain Resp: Reports: dyspnea GI: Reports: abdominal pain : Denies: flank pain Musc: Denies: neck pain Skin/Breast: Denies: rash Neuro: Denies: headache(s) Medications/Allergies Home Medications Medication Instructions Recorded Confirmed Last Taken Type bupropion HCl 150 mg 24 hr tablet, 150 mg PO QAM 08/10/23 08/10/23 08/10/23 History extended release mirtazapine 15 mg tablet 15 mg PO BEDTIME 08/10/23 08/10/23 08/09/23 History mirtazapine 30 mg tablet 30 mg PO BEDTIME 08/10/23 08/10/23 08/09/23 History topiramate 50 mg tablet 50 mg PO BEDTIME 08/10/23 08/10/23 08/09/23 History Allergies Allergy/AdvReac Type Severity Reaction Status Date / Time No Known Allergies Allergy Verified 08/04/23 10:14 PFSH Acute PFSH: Medical History Acute cystitis Anxiety Crohn's disease Dehydration Small bowel obstruction Surgical History History of bowel resection S/P appendectomy Family History Denies family history of CAD (coronary artery disease) Social History Smoking and tobacco/nicotine status: current every day tobacco/nicotine user cigarettes Packs smoked per day: 0.25 Alcohol intake: never Substance/Drug Use: current Substance/Drug use frequency: other Other substance/drug use details: IV drug user Female Reproductive History: Spontaneous abortions: No Vitals/I&O/Wt Last Vital Signs Temp 98.4 F 08/10/23 13:53 Pulse 94 08/10/23 15:26 Resp 17 08/10/23 15:26 BP 116/90 08/10/23 15:26 Pulse Ox 95 08/10/23 15:26 O2 Del Method Room Air 08/10/23 15:26 Weight last 48 hrs Weight 64.41 kg Physical Exam Narrative: Patient is awake and alert Abdomen tender midepigastric region on deep palpation otherwise no active signs of peritonitis Bowel sounds sluggish S1, S2 Clinical looks dehydrated Abdominal scar noted GCS 15 Pleasant Currently on room air Data 08/10/23 14:28 08/10/23 14:28 A&P Assessment and plan (1) Small bowel obstruction: (2) Crohn disease: Qualifiers: Digestive disease complication type: with intestinal obstruction Gastrointestinal tract location: unspecified location Qualified Code(s): K50.912 - Crohn's disease, unspecified, with intestinal obstruction Plan SMALL Bowel obstruction Previous history of abdominal surgery Patient is due for colonoscopy to rule out malignancy NG tube has been placed 300 mL obtain in the container Low intermittent suction to be continued overnight Start IV fluids Would use opioids We will add empirical antibiotic coverage She is afebrile No active dysentery or blood in stool N.p.o. Dr. Rosenbaum has been consulted Full code DVT prophylaxis on hold for now Attestations Medical Necessity Statement*: Anticipating more than 2 midnights for management of SBO with underlying Crohn disease Diagnoses Small bowel obstruction K56.609 Crohn disease K50.912 Digestive disease complication type: with intestinal obstruction Gastrointestinal tract location: unspecified location
[2023-08-10] MEDS: sodium chloride 0.9% 1,000 ML 150 ML IV (17:13)
--- NOTE | 2023-08-10 17:44 | XRR_ITS ---
PROCEDURE INFORMATION: Exam: XR Chest Exam date and time: 08/10/2023 5:46 PM Age: 43 years old Clinical indication: Device placement; Ng tube; Patient HX: Ng placement; Abdominal pain; Additional info: Confirm ng tube TECHNIQUE: Imaging protocol: Radiologic exam of the chest. Views: 1 view. COMPARISON: CR XR chest 1V portable [id number] 11/29/2022 8:53 PM FINDINGS: Tubes, catheters and devices: There is an NG tube positioned in the proximal stomach. Lungs: Unremarkable. No consolidation. Pleural spaces: Unremarkable. No pleural effusion. No pneumothorax. Heart/Mediastinum: Unremarkable. No cardiomegaly. Bones/joints: Unremarkable. XR/XR chest 1V portable [id number] IMPRESSION: There is an NG tube positioned in the proximal stomach.
[2023-08-10] MEDS: fentaNYL 50 mcg/mL INJ 2mL IVP (18:46)
[2023-08-10] MEDS: sodium chloride 0.9% 1,000 ML 100 ML IV (21:37)
[2023-08-10] MEDS: HYDROmorphone 1 mg/mL INJ 1 mL 0.4 MG IVP (21:37)
[2023-08-10] MEDS: piperacillin-tazobactam 3.375 GM in sodium chloride 0.9% (plus) 50 ML IV (21:38)
[2023-08-10] MEDS: lanolin oint 7 gm 1 APPLIC TOPICAL (21:59)
[2023-08-10 22:01] LABS: Thyroid Stimulating Hormone 1.43 uIU/mL (0.27-4.20)
--- NOTE | 2023-08-10 23:59 | PC.NURSE ---
Patient rates pain 5/10 at this time. Patient offered PRN Morphine and stated I want to wait a little bit.
[2023-08-11] VITALS (12 sets, daily range): BP systolic 91–111; BP diastolic 57–79; PULSE 71–79; RESP 16–18; TEMP 36.2–36.6; O2SAT 93–97
[2023-08-11] MEDS: HYDROmorphone 1 mg/mL INJ 1 mL 0.4 MG IVP ×3 (01:11→10:18)
[2023-08-11] MEDS: ondansetron 2 mg/ML SDV 2 mL 4 MG IVP ×2 (01:13→08:18)
[2023-08-11 04:23] LABS: Basophils % 0.1 %; Eosinophils % 0.1 %; Hematocrit 44.5 % (36-47); Lymphocytes # 0.8 10^3/uL (0.8-4.8); Lymphocytes % 8.8 %; Mean Corpuscular HGB Conc 31.5 g/dL (30-55); Mean Corpuscular Hemoglobin 29.4 pg (27-33); Mean Corpuscular Volume 93.3 fl (85-98); Mean Platelet Volume 10.7 fL (7.4-10.4); Monocytes % 0.5 %; Neutrophils % 90.2 %; Nucleated Red Blood Cells % 0 %; Platelet Count 229 10^3/cmm (157-399); Red Blood Count 4.77 10^6/uL (3.85-5.65); Red Cell Distribution Width 13.3 % (12.1-15.1); White Blood Count 8.65 10^3/uL (3.29-11.43)
[2023-08-11] MEDS: phenol oral Spray 177 mL 3 SPRAY MUCOUS MEM ×2 (04:59→08:20)
[2023-08-11] MEDS: piperacillin-tazobactam 3.375 GM in sodium chloride 0.9% (plus) 50 ML IV (04:59)
[2023-08-11 05:35] LABS: Slide Review Slide Review Perform
[2023-08-11 06:44] LABS: Anion Gap 14.4 (5-19); Blood Urea Nitrogen 19 mg/dL (6-20); Calcium 8.7 mg/dL (8.5-10.5); Carbon Dioxide 21 mmol/L (22-29); Chloride 107 mmol/L (98-107); Glomerular Filtration Rate 91.8 mL/min (90-130); Glucose 140 mg/dL (65-115); Osmolality Calculated 291 mOsm/kg (285-295); Phosphorus 3.3 mg/dL (2.5-4.5); Potassium 4.4 mmol/L (3.5-5.1); Sodium 138 mmol/L (136-145)
[2023-08-11] MEDS: morphine 4 mg/mL SDV 1 mL 2 MG IVP ×4 (08:20→23:30)
--- NOTE | 2023-08-11 08:54 | P.PN_ITS ---
Subjective Subjective: No BM yet No leukocytosis, no fever NG to low intermittent suction about 200 mL dark color content noted Mild abd discomfort Patient endorsing passing flatus Vitals/I&O/Wt Last Vital Signs Temp 97.4 F L 08/11/23 08:40 Pulse 71 08/11/23 08:40 Resp 18 08/11/23 08:40 BP 93/61 08/11/23 08:40 Pulse Ox 96 08/11/23 08:40 O2 Del Method Room Air 08/11/23 08:40 08/10/23 08/11/23 08/11/23 22:59 06:59 14:59 Intake Total 1001.28 / 1001.28 92 / 1093.28 Output Total 150 / 150 250 / 400 500 / 500 Balance 851.28 / 851.28 -158 / 693.28 -500 / -500 Weight last 48 hrs Weight 64.41 kg Physical Exam Narrative: Pleasant cooperative female Resting comfortably Signs of dehydration present Nonfocal neuro exam Currently on room air NG Data 08/11/23 03:57 08/11/23 05:50 A&P Assessment and plan (1) Small bowel obstruction: (2) Crohn disease: Qualifiers: Digestive disease complication type: with intestinal obstruction Gastrointestinal tract location: unspecified location Qualified Code(s): K 50.912 - Crohn's disease, unspecified, with intestinal obstruction Plan SBO Continue IV steroids Conservative management We will follow-up with general surgery recommendations Patient will need outpatient GI referral Continue antibiotics Further plan regarding continuation of NG tube to be made after general surgery evaluation today, patient is passing flatus, she is still endorsing nausea 200 mL content since yesterday night NG tube clamp? Bowel sounds present today more active as compared to yesterday Full code N.p.o. Attestations Medical Necessity Statement*: Continue medical management Diagnoses Small bowel obstruction K56.609 Crohn disease K50.912 Digestive disease complication type: with intestinal obstruction Gastrointestinal tract location: unspecified location
[2023-08-11] MEDS: flu vacc pf 2023-24 (6 mos+) 60 MCG IM (10:19)
--- NOTE | 2023-08-11 11:37 | XRR_ITS ---
PROCEDURE INFORMATION: Exam: XR Abdomen Exam date and time: 08/11/2023 11:58 AM Age: 43 years old Clinical indication: Condition or disease; Prior surgery; Surgery date: 6+ months; Surgery type: Colon resection involving rectum; Patient HX: Abdomen pain; Follow up small bowel obstruction; Nausea; HX sbo & colon resection TECHNIQUE: Imaging protocol: Radiologic exam of the abdomen. Views: Frontal supine view of the abdomen. 1 View. COMPARISON: CT abdomen pelvis wo con [id number] 08/10/2023 3:08 PM FINDINGS: Tubes, catheters and devices: Enteric tube terminates in the stomach. Gastrointestinal tract: No air-filled dilated bowel loops or evidence of bowel thickening. Obstructive findings better seen on comparison CT from yesterday. Bones/joints: Unremarkable. XR/XR KUB portable [id number] IMPRESSION: Interval enteric tube adequately positioned.
--- NOTE | 2023-08-11 13:45 | PM.CONSULT ---
Providers/Reason For Consult Consulting Physician/Specialty*: Dr. Godfrey Rosenbaum DO/General surgery Reason for Consult*: Crohn's disease/abdominal pain Attending Physician: Indira York MD Primary Care Provider: Raheem Matos MD History of Present Illness History of Present Illness Nette Marks is a 43 year old female with a history of untreated Crohn's disease, who presents the hospital with 1 day history of severe left upper quadrant abdominal pain. The pain is constant and does not radiate. Patient makes pain worse. Nothing makes pain better. She denies any nausea or vomiting. She was not passing any flatus or having bowel movements yesterday. She reports she is passing flatus this morning however with an NG tube in place. 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 CT abdomen pelvis shows fecalization of the small bowel without a transition point or overt obstruction. Denies any fever, chills, hematochezia and/or melena Review of Systems General: Reports: 10 or more systems reviewed and unremarkable except in HPI and below Medications/Allergies Home Medications Medication Instructions Recorded Confirmed Last Taken Type bupropion HCl 150 mg 24 hr tablet, 150 mg PO QAM 08/10/23 08/10/23 08/10/23 History extended release mirtazapine 15 mg tablet 15 mg PO BEDTIME 08/10/23 08/10/23 08/09/23 History mirtazapine 30 mg tablet 30 mg PO BEDTIME 08/10/23 08/10/23 08/09/23 History topiramate 50 mg tablet 50 mg PO BEDTIME 08/10/23 08/10/23 08/09/23 History Allergies Allergy/AdvReac Type Severity Reaction Status Date / Time No Known Allergies Allergy Verified 08/04/23 10:14 PFSH Acute PFSH: Medical History Acute cystitis Anxiety Crohn's disease Dehydration Small bowel obstruction Surgical History History of bowel resection S/P appendectomy Family History Denies family history of CAD (coronary artery disease) Social History Smoking and tobacco/nicotine status: current every day tobacco/nicotine user cigarettes Packs smoked per day: 0.25 Alcohol intake: never Substance/Drug Use: current Substance/Drug use frequency: other Other substance/drug use details: IV drug user Female Reproductive History: Spontaneous abortions: No Vitals/I&O/Wt Last Vital Signs Temp 97.4 F L 08/11/23 13:15 Pulse 72 08/11/23 13:15 Resp 18 08/11/23 13:15 BP 101/67 08/11/23 13:15 Pulse Ox 93 08/11/23 13:15 O2 Del Method Room Air 08/11/23 13:15 08/10/23 08/11/23 08/11/23 22:59 06:59 14:59 Intake Total 1001.28 / 1001.28 92 / 1093.28 Output Total 150 / 150 250 / 400 500 / 500 Balance 851.28 / 851.28 -158 / 693.28 -500 / -500 Weight last 48 hrs Weight 142 lb Physical Exam Narrative: General : Patient is well developed , no acute distress, oriented x3 Head : Normal cephalic, a-traumatic. Ears : Pinnae and external canal are normal. Hearing is normal. Eyes : PERRLA, Sclera and injection are normal. No conjunctival discharge. Nose : Mucous membranes are without erythema. Throat : buccal mucosa is normal, gums are without significant recession or hypertrophy. Lungs : Equal chest rise bilaterally, no use of accessory muscles, trachea is midline. Cor : Rate and rhythm are normal. Abdomen : Soft, moderately distended, tender to palpation in left upper quadrant, no g/r/m Extremities : No edema, no cyanosis or clubbing, dorsalis pedis pulses are present bilaterally, non-tender to palpation of calves. Upper extremities are normal bilaterally. Back : non-tender to palpation, no CVA tenderness. Neuro : CN II - XII intact, Upper and lower extremities have equal and full strength Data 08/11/23 03:57 08/11/23 05:50 A&P Assessment and plan (1) Small bowel obstruction: (2) Crohn disease: Qualifiers: Digestive disease complication type: with intestinal obstruction Gastrointestinal tract location: unspecified location Qualified Code(s): K50.912 - Crohn's disease, unspecified, with intestinal obstruction Plan Continue IV fluids and NG tube to low intermittent wall suction today as patient is still moderately distended. Will reassess for diet tomorrow. She is unlikely to need surgical intervention during this hospital stay based on presentation and CT findings. Medical management for Crohn's flare. Recommend sulfasalazine upon discharge and GI referral. Coding Level of Care Code 60642 Diagnoses Small bowel obstruction K56.609 Crohn disease K50.912 Digestive disease complication type: with intestinal obstruction Gastrointestinal tract location: unspecified location
[2023-08-11] MEDS: enoxaparin 40 mg/0.4 mL Syringe SUBCUT (15:30)
[2023-08-11] MEDS: dextrose 5%-sod chloride 0.9% 1,000 ML 100 ML IV (15:31)
[2023-08-11] MEDS: methylPREDNISolone sod succ 60 MG in water for injection-sterile 0.96 ML 11.52 MG IVP (19:30)
[2023-08-11] MEDS: sodium chloride 0.9% 1,000 ML 100 ML IV (19:30)
[2023-08-12] VITALS (10 sets, daily range): BP systolic 99–112; BP diastolic 62–69; PULSE 60–92; RESP 16–19; TEMP 36.4–36.7; O2SAT 93–98
[2023-08-12] MEDS: dextrose 5%-sod chloride 0.9% 1,000 ML 100 ML IV ×3 (02:05→20:32)
[2023-08-12] MEDS: phenol oral Spray 177 mL 3 SPRAY MUCOUS MEM (02:05)
[2023-08-12 05:16] LABS: Hematocrit 37.7 % (36-47); Lymphocytes % 12.7 %; Mean Corpuscular HGB Conc 32.4 g/dL (30-55); Mean Corpuscular Hemoglobin 29.2 pg (27-33); Mean Corpuscular Volume 90.2 fl (85-98); Mean Platelet Volume 10.5 fL (7.4-10.4); Monocytes # 0.1 10^3/uL (0.2-0.9); Monocytes % 1.8 %; Neutrophils # 6.64 10^3/uL (1.8-7.7); Neutrophils % 85.2 %; Nucleated Red Blood Cells % 0 %; Platelet Count 207 10^3/cmm (157-399); Red Blood Count 4.18 10^6/uL (3.85-5.65); Red Cell Distribution Width 13.2 % (12.1-15.1); White Blood Count 7.79 10^3/uL (3.29-11.43)
[2023-08-12 05:36] LABS: Magnesium 1.9 mg/dL (1.7-2.3)
[2023-08-12 05:53] LABS: Anion Gap 10.8 (5-19); Blood Urea Nitrogen 16 mg/dL (6-20); Calcium 8.3 mg/dL (8.5-10.5); Carbon Dioxide 23 mmol/L (22-29); Chloride 104 mmol/L (98-107); Glomerular Filtration Rate 109.6 mL/min (90-130); Glucose 144 mg/dL (65-115); Osmolality Calculated 282 mOsm/kg (285-295); Potassium 3.8 mmol/L (3.5-5.1); Sodium 134 mmol/L (136-145)
[2023-08-12] MEDS: morphine 4 mg/mL SDV 1 mL 2 MG IVP ×3 (09:22→22:13)
[2023-08-12] MEDS: methylPREDNISolone sod succ 60 MG in water for injection-sterile 0.96 ML 12 MG IVP ×2 (09:22→20:31)
[2023-08-12] MEDS: ondansetron 2 mg/ML SDV 2 mL 4 MG IVP (09:22)
--- NOTE | 2023-08-12 13:41 | PM.PN ---
Subjective Subjective: Patient seen and examined. She had 1 hard bowel movement and is passing flatus. Vitals/I&O/Wt Last Vital Signs Temp 98 F 08/12/23 12:43 Pulse 60 08/12/23 12:43 Resp 17 08/12/23 12:43 BP 106/68 08/12/23 12:43 Pulse Ox 94 08/12/23 12:43 O2 Del Method Room Air 08/12/23 12:43 08/11/23 08/12/23 08/12/23 22:59 06:59 14:59 Intake Total 0.96 / 958.96 1000 / 1958.96 1000.96 / 1000.96 Output Total 250 / 750 Balance -249.04 / 208.96 1000 / 1208.96 1000.96 / 1000.96 Weight last 48 hrs Weight 142 lb Physical Exam Narrative: General: No acute distress, awake alert and oriented x3 Abdomen: Soft, mildly tented, nontender, no guarding rebound or masses Data 08/12/23 04:40 08/12/23 04:40 A&P Assessment and plan (1) Small bowel obstruction: (2) Crohn disease: Qualifiers: Digestive disease complication type: with intestinal obstruction Gastrointestinal tract location: unspecified location Qualified Code(s): K50.912 - Crohn's disease, unspecified, with intestinal obstruction Plan DC NG tube Clear liquid diet Likely full liquid diet tomorrow and clear for discharge She is unlikely to need surgical intervention during this hospital stay based on presentation and CT findings. Medical management for Crohn's flare. Recommend sulfasalazine upon discharge and GI referral. Attestations Medical Necessity Statement*: Per primary Coding Level of Care Code 15473 Diagnoses Small bowel obstruction K56.609 Crohn disease K50.912 Digestive disease complication type: with intestinal obstruction Gastrointestinal tract location: unspecified location
[2023-08-12] MEDS: enoxaparin 40 mg/0.4 mL Syringe SUBCUT (16:32)
--- NOTE | 2023-08-12 18:02 | PM.PN ---
Subjective Subjective: Passing flatus No bowel movement Normal CBC and BMP Minimal output from NG KUB did show improvement of small bowel dilation Vitals/I&O/Wt Last Vital Signs Temp 97.8 F 08/11/23 16:22 Pulse 77 08/11/23 16:22 Resp 17 08/11/23 16:22 BP 97/69 08/11/23 16:22 Pulse Ox 96 08/11/23 16:22 O2 Del Method Room Air 08/11/23 16:22 08/11/23 08/11/23 08/11/23 06:59 14:59 22:59 Intake Total 92 / 1093.28 958 / 958 Output Total 250 / 400 500 / 500 Balance -158 / 693.28 458 / 458 Weight last 48 hrs Weight 64.41 kg Physical Exam Narrative: Awake and alert Signs of dehydration Abdomen nontender No signs of peritonitis Currently on room air GCS 15 Pleasant and cooperative No active emesis NG to suction Data 08/12/23 04:40 08/12/23 04:40 A&P Assessment and plan (1) Small bowel obstruction: (2) Crohn disease: Qualifiers: Digestive disease complication type: with intestinal obstruction Gastrointestinal tract location: unspecified location Qualified Code(s): K50.912 - Crohn's disease, unspecified, with intestinal obstruction Plan Appreciate general surgery recommendations for management of SBO, patient has untreated Crohn disease for which she will need GI referral KUB did show improvement in bowel dilation After following up with general surgery we will make further recommendations but I am anticipating patient will stay until Sunday because she is still extremely dehydrated requiring IV fluid hydration Continue IV fluids Continue IV steroids at this point dc NG tube start clears Attestations Medical Necessity Statement*: Continue medical management Diagnoses Small bowel obstruction K56.609 Crohn disease K50.912 Digestive disease complication type: with intestinal obstruction Gastrointestinal tract location: unspecified location
[2023-08-13] MEDS: temazepam 15 mg Capsule PO (01:28)
[2023-08-13 04:00] VITALS: BP 117/71; PULSE 58; RESP 17; TEMP 36.3; O2SAT 97
[2023-08-13] MEDS: dextrose 5%-sod chloride 0.9% 1,000 ML 100 ML IV (06:43)
[2023-08-13 08:00] VITALS: BP 121/69; PULSE 59; PULSE 70; RESP 16; RESP 20; TEMP 36.6; O2SAT 96; O2SAT 97
[2023-08-13] MEDS: ondansetron 2 mg/ML SDV 2 mL 4 MG IVP (08:29)
[2023-08-13 08:30] VITALS: RESP 18
[2023-08-13] MEDS: morphine 4 mg/mL SDV 1 mL 2 MG IVP (08:30)
[2023-08-13] MEDS: methylPREDNISolone sod succ 60 MG in water for injection-sterile 0.96 ML 12 MG IVP (08:30)
--- NOTE | 2023-08-13 09:39 | P.DS_ITS ---
Discharge Providers Date of Admission: 08/10/23 18:50 Date of Discharge: August 13, 2023 Attending Provider at Admission: Indira York MD Attending Provider at Discharge: Indira oYrk MD Primary Care Provider: Raheem Matos MD Diagnoses at Discharge Discharge Diagnosis (1) Small bowel obstruction: Status: Acute (2) Crohn disease: Status: Acute Qualifiers: Digestive disease complication type: with intestinal obstruction Gastrointestinal tract location: unspecified location Qualified Code(s): K50.912 - Crohn's disease, unspecified, with intestinal obstruction Reason for Visit Reason for Visit: Abd Pain Hospital Course Hospital Course 43-year-old female with history of Crohn disease, patient is stating that she was diagnosed with Crohn disease couple of years ago however she refused monoclonal antibody treatment, stating that she had surgery done for small bowel and rectal fistula,presented with chief complaint of recurrent vomiting and abdominal pain. She was diagnosed with evolving SBO, NGT was placed, about 600 mL NG content was suctioned, patient was given mag citrate as well, she was passing flatus, had couple of bowel movements, her diet was advanced, recurrent nausea vomiting improved. She remained afebrile she was put on Zosyn and IV fracisco roids. At this point I am not sure about the intensity and severity of her chronic disease she did not experience any blood in stool during her stay in the hospital however endorsing mucus in stool, it might be unsafe to add sulfasalazine or budesonide taper at this point without knowing extent of her Crohn disease I would like her to follow-up with gastroenterology in [place] I have given her referral patient stating that she is scheduled for colonoscopy in near future as well at [place]. Physical Exam Narrative: Awake and alert Similar dehydration improving Abdomen soft Bowel sound present Tolerating diet Currently on room air Discharge Data Studies Completed and Pending Completed Studies During Hospitalization Category Date Time Status CT abdomen pelvis wo con [id number] Stat Cat Scan 08/10/23 15:01 Completed XR KUB portable [id number] Routine Exams 08/11/23 11:37 Completed XR chest 1V portable [id number] Stat Exams 08/10/23 17:44 Completed Radiology Impressions Chest X-Ray 08/10/23 17:44 IMPRESSION: There is an NG tube positioned in the proximal stomach. KUB X-Ray 08/11/23 11:37 IMPRESSION: Interval enteric tube adequately positioned. Laboratory Results WBC 7.79 10^3/uL (3.29-11.43) 08/12/23 04:40 RBC 4.18 10^6/uL (3.85-5.65) 08/12/23 04:40 Hgb 12.20 g/dL (11.27-16.99) 08/12/23 04:40 Hct 37.7 % (36-47) 08/12/23 04:40 MCV 90.2 fl (85-98) 08/12/23 04:40 MCH 29.2 pg (27-33) 08/12/23 04:40 MCHC 32.4 g/dL (30-55) 08/12/23 04:40 RDW 13.2 % (12.1-15.1) 08/12/23 04:40 Plt Count 207 10^3/cmm (157-399) 08/12/23 04:40 MPV 10.5 fL (7.4-10.4) H 08/12/23 04:40 Neut % (Auto) 85.2 % 08/12/23 04:40 Lymph % (Auto) 12.7 % 08/12/23 04:40 [place] % (Auto) 1.8 % 08/12/23 04:40 Eos % (Auto) 0.0 % 08/12/23 04:40 Baso % (Auto) 0.0 % 08/12/23 04:40 Neut # (Auto) 6.64 10^3/uL (1.8-7.7) 08/12/23 04:40 Lymph # (Auto) 1.0 10^3/uL (0.8-4.8) 08/12/23 04:40 [place] # (Auto) 0.1 10^3/uL (0.2-0.9) L 08/12/23 04:40 Eos # (Auto) 0.0 10^3/uL (0.0-0.8) 08/12/23 04:40 Baso # (Auto) 0.0 10^3/uL (0.0-0.1) 08/12/23 04:40 Nucleated RBC % (auto) 0 % 08/12/23 04:40 Nucleated RBCs # 0.0 /100WBC 08/12/23 04:40 Sodium 134 mmol/L (136-145) L 08/12/23 04:40 Potassium 3.8 mmol/L (3.5-5.1) 08/12/23 04:40 Chloride 104 mmol/L (98-107) 08/12/23 04:40 Carbon Dioxide 23 mmol/L (22-29) 08/12/23 04:40 Anion Gap 10.8 (5-19) 08/12/23 04:40 BUN 16 mg/dL (6-20) 08/12/23 04:40 Creatinine 0.6 mg/dL (0.5-0.9) 08/12/23 04:40 GFR Calculation 109.6 mL/min (90-130) 08/12/23 04:40 Glucose 144 mg/dL (65-115) H 08/12/23 04:40 Calculated Osmolality 282 mOsm/kg (285-295) L 08/12/23 04:40 Calcium 8.3 mg/dL (8.5-10.5) L 08/12/23 04:40 Phosphorus 3.3 mg/dL (2.5-4.5) 08/11/23 05:50 Magnesium 1.9 mg/dL (1.7-2.3) 08/12/23 04:40 Total Bilirubin 0.2 mg/dL (0.15-1.2) 08/10/23 14:28 AST 19 U/L (0-32) 08/10/23 14:28 ALT 12 U/L (0-33) 08/10/23 14:28 Alkaline Phosphatase 96 U/L (35-105) 08/10/23 14:28 Total Protein 7.9 g/dL (6.6-8.7) 08/10/23 14:28 Albumin 4.8 g/dL (3.5-5.2) 08/10/23 14:28 Globulin 3.1 g/dL (1.3-4.6) 08/10/23 14:28 Lipase 29 U/L (13-60) 08/10/23 14:28 TSH 1.43 uIU/mL (0.27-4.20) 08/10/23 14:28 HCG, Qual Negative (Negative) 08/10/23 14:28 Urine Color Yellow (Yellow) 08/10/23 14:13 Urine Appearance Clear (CLEAR) 08/10/23 14:13 Urine pH 5 (5-7) 08/10/23 14:13 Ur Specific [place] 1.025 (1.005-1.030) 08/10/23 14:13 Urine Protein Trace (Negative) 08/10/23 14:13 Urine Glucose (UA) Norm (Normal) 08/10/23 14:13 Urine Ketones Negative (Negative) 08/10/23 14:13 Urine Blood Neg (Negative) 08/10/23 14:13 Urine Nitrate Negative (Negative) 08/10/23 14:13 Urine Bilirubin 1+ (Negative) H 08/10/23 14:13 Urine Urobilinogen Norm mg/dL (Negative) 08/10/23 14:13 Ur Leukocyte Esterase Negative (Negative) 08/10/23 14:13 Urine RBC 0-4 /hpf (0-2) H 08/10/23 14:13 Urine WBC 0-4 /hpf (0-5) H 08/10/23 14:13 Ur Squamous Epith Cells 0-4 /hpf (0-5) H 08/10/23 14:13 Amorphous Sediment Not Reportable 08/10/23 14:13 Urine Bacteria Trace /hpf (NONE) 08/10/23 14:13 Urine Mucus 4+ /hpf 08/10/23 14:13 Vitals Last Vital Signs Temp 97.9 F 08/13/23 08:00 Pulse 70 08/13/23 08:00 Resp 18 08/13/23 08:30 BP 121/69 08/13/23 08:00 Pulse Ox 96 08/13/23 08:00 O2 Del Method Room Air 08/13/23 08:00 Discharge Plan Discharge Patient Disposition: Home Condition: Stable Prescriptions: New oxycodone 5 mg tablet 5 mg PO DAILY PRN (Reason: pain) Qty: 7 0RF ondansetron HCl 4 mg tablet 4 mg PO DAILY Qty: 20 0RF Continued mirtazapine 30 mg tablet 30 mg PO BEDTIME bupropion HCl 150 mg tablet extended release 24 hr 150 mg PO QAM topiramate 50 mg tablet 50 mg PO BEDTIME Discontinued mirtazapine 15 mg tablet 15 mg PO BEDTIME Discharge Orders: Discharge Order (Routine); Ordered 08/13/23 Ordered By: Indira York Referrals: Rodo Sierra MD [Referring] - 1-3 days (crohn's disease evaluation needed) Raheem Matos MD [Primary Care Provider] - 08/16/23 9:30 am Patient Instructions: Opioid Safety Discharge Attestations Time Spent in Discharge Care*: greater than 30 min Quality Metrics Clinical Quality Measures [ No reported AMI, CVA or VTE this stay] Coding Level of Care Code Acute Code for Chg Fwd Diagnoses Small bowel obstruction K56.609 Crohn disease K50.912 Digestive disease complication type: with intestinal obstruction Gastrointestinal tract location: unspecified location
--- NOTE | 2023-08-13 12:15 | P.PN_ITS ---
Subjective Subjective: Patient seen and examined. Minimal abdominal pain. Still passing flatus and having bowel movements. She does report that she had a small amount of emesis earlier today. Denies any current nausea Vitals/I&O/Wt Last Vital Signs Temp 97.9 F 08/13/23 08:00 Pulse 70 08/13/23 08:00 Resp 18 08/13/23 08:30 BP 121/69 08/13/23 08:00 Pulse Ox 96 08/13/23 08:00 O2 Del Method Room Air 08/13/23 08:00 08/12/23 08/13/23 08/13/23 22:59 06:59 14:59 Intake Total 1544.293 / 2545.253 1000 / 3545.253 240.96 / 240.96 Balance 1544.293 / 2545.253 1000 / 3545.253 240.96 / 240.96 Physical Exam Narrative: General: No acute distress, awake alert and oriented x3 Abdomen: Soft, mild distention, nontender, no guarding rebound or masses Data 08/12/23 04:40 08/12/23 04:40 A&P Assessment and plan (1) Small bowel obstruction: (2) Crohn disease: Qualifiers: Digestive disease complication type: with intestinal obstruction Judy rointestinal tract location: unspecified location Qualified Code(s): K50.912 - Crohn's disease, unspecified, with intestinal obstruction Plan Full liquid diet Milk of magnesia Surgically stable for discharge is tolerating full liquid diet without emesis. I would like another 24 hours of full liquids and then she can be advance to soft diet. She is unlikely to need surgical intervention during this hospital stay based on presentation and CT findings. Medical management for Crohn's flare. Recommend sulfasalazine upon discharge and GI referral. Attestations Medical Necessity Statement*: per primary Coding Level of Care Code 64408 Diagnoses Small bowel obstruction K56.609 Crohn disease K50.912 Digestive disease complication type: with intestinal obstruction Gastrointestinal tract location: unspecified location
[2023-08-13] MEDS: magnesium hydroxide 30 mL UDC PO (12:29)
[2023-08-13 12:44] VITALS: RESP 18
== END 2023-08-13 12:46 | disposition home or self-care (01) | DRG 387 ==
LOC: ER 16:23 → MEDSURG 08-11 13:10
PROVIDERS: Admitting Provider Internal Medicine; Emergency Provider Nurse Practitioner Family; PCP Family Medicine; Visit Provider Internal Medicine
DX: K50.012 Crohn's disease of small intestine with intestinal obstruction (principal); Z98.890 Other specified postprocedural states; F17.210 Nicotine dependence, cigarettes, uncomplicated; F15.91 Other stimulant use, unspecified, in remission; E86.0 Dehydration; F41.9 Anxiety disorder, unspecified
CPT/HCPCS: 36415; 71045; 74018; 74176; 80048; 80053; 81001; 83690; 83735; 84100; 84443; 84703; 85025; 90471; 90686; 96372; 96374; 99285; J1170; J1650; J2270; J2405; J2543; J2765; J2930; J3010; J7030; J7042

== ENCOUNTER 2023-08-14 20:07 | Emergency (ER) | payer MEDICAID, SELFPAY ==
[2023-08-14 20:12] VITALS: BP 145/88; PULSE 66; RESP 20; TEMP 36.7; O2SAT 96; BMI 25.9
--- NOTE | 2023-08-14 22:03 | XRR_ITS ---
PROCEDURE INFORMATION: Exam: XR Abdomen Exam date and time: 08/14/2023 10:14 PM Age: 43 years old Clinical indication: Abdominal pain; Acute; Prior surgery; Surgery date: 6+ months; Surgery type: Appy tubal colon; Additional info: R/O obstruction TECHNIQUE: Imaging protocol: Radiologic exam of the abdomen. Views: Frontal supine view of the abdomen. 1 View. COMPARISON: CR (ABDOMEN, ) 08/11/2023 11:58 AM FINDINGS: Lungs: Visualized lungs are clear. Gastrointestinal tract: No evidence for bowel obstruction or perforation. Intraperitoneal space: Surgical sutures in the pelvis are stable. No free intraperitoneal air. Organs: No organomegaly. Bones/joints: Unremarkable. XR/XR KUB [id number] IMPRESSION: 1. No evidence for bowel obstruction or perforation. 2. Incidental/nonacute findings are listed in the report.
--- NOTE | 2023-08-14 22:16 | W.ED.ABDPA2 ---
HPI - Abdominal Pain General: Chief Complaint: Abdominal Pain Stated Complaint: abdomen pain Time Seen by Provider: 08/14/23 22:01 History of Present Illness: 43-year-old female comes in today with lower abdominal pain and nausea. Patient has a history of Crohn's with bowel resection. Patient was admitted on 10 August for SBO. Patient was discharged on the in the morning with medications for pain and nausea with recommendations to follow-up with gastroenterology and [place] for initiation of therapy for Crohn's disease. Patient came in tonight due to increased pain and feeling bloated and concerned that her bowel obstruction may be worse. Patient appears nontoxic. Patient appears in mild to moderate pain. Patient reports nausea. Patient does state that she is passing gas and has not thrown up. Review of Systems GI: Reports: abdominal pain [facility] ED PFSH: Medical History Acute cystitis Anxiety Crohn's disease Dehydration Small bowel obstruction Surgical History History of bowel resection S/P appendectomy Family History Denies family history of CAD (coronary artery disease) Social History Smoking and tobacco/nicotine status: current every day tobacco/nicotine user cigarettes Packs smoked per day: 0.25 Alcohol intake: never Substance/Drug Use: current Substance/Drug use frequency: other Other substance/drug use details: IV drug user Female Reproductive History: Spontaneous abortions: No Physical Exam Const: COMMON NORMALS: alert HENMT: COMMON NORMALS: normocephalic HEAD & SCALP: normocephalic Neck/C-Spine: COMMON NORMALS: full ROM Resp: COMMON NORMALS: normal respiratory effort and clear to auscultation bilaterally AUSCULTATION: clear to auscultation bilaterally Cardio: COMMON NORMALS: regular rate RATE: regular rate GI: AUSCULTATION: Yes normoactive bowel sounds PALPATION: Yes Firmness to palpation present (GI) and Yes Tenderness to palpation present (GI) Extremity: COMMON NORMALS: normal to inspection Neuro: SENSORIUM/ORIENTATION: Yes alert Skin: COMMON NORMALS: turgor normal GENERAL SKIN EXAM: turgor normal Course Vital Signs: Vital signs: Vital Signs Temperature 98.1 F 08/14/23 20:12 Pulse Rate 72 08/14/23 22:47 Respiratory Rate 18 08/14/23 22:47 Blood Pressure 120/84 08/14/23 22:47 Pulse Oximetry 97 08/14/23 22:47 Oxygen Delivery Me thod Room Air 08/14/23 20:12 MDM - Abdominal Pain Medical Decision Making Patient comes in today for complaints of nausea and pain to her abdomen. Patient recent been discharged from hospital for evolving small bowel obstruction. Patient was managed with NG tube with increasing diet back to a clear liquid diet. Patient reports that she has not had any vomiting and has been passing gas. Patient came in due to mainly due to her increased pain and discomfort. On exam abdomen soft generalized tenderness with some mild distention. Bowel sounds are active. Vital signs are normal. Differential diagnosis includes but not limited to exacerbation of Crohn's, small bowel obstruction, malingering. CBC and CMP were unremarkable. KUB x-ray noted bowel gas patterns throughout abdomen. No sign of small bowel obstruction was noted. Believe the patient is probably having pain secondary to her Crohn's disease. I reviewed this with Dr. Hunt who agreed with plan for starting sulfasalazine 500 mg twice a day to help with pain and discomfort and have her follow-up with gastroenterology. Patient was also written for 7 tablets of hydrocodone for pain and 4 mg of Zofran for nausea. Recommend patient monitoring for worsening symptoms and return as needed. Lab Data 08/14/23 22:15 08/14/23 22:15 Labs/Radiology: Laboratory Results WBC 8.47 10^3/uL (3.29-11.43) 08/14/23 22:15 RBC 4.57 10^6/uL (3.85-5.65) 08/14/23 22:15 Hgb 13.60 g/dL (11.27-16.99) 08/14/23 22:15 Hct 41.5 % (36-47) 08/14/23 22:15 MCV 90.8 fl (85-98) 08/14/23 22:15 MCH 29.8 pg (27-33) 08/14/23 22:15 MCHC 32.8 g/dL (30-55) 08/14/23 22:15 RDW 13.2 % (12.1-15.1) 08/14/23 22:15 Plt Count 216 10^3/cmm (157-399) 08/14/23 22:15 MPV 10.5 fL (7.4-10.4) H 08/14/23 22:15 Neut % (Auto) 44.4 % 08/14/23 22:15 Lymph % (Auto) 49.7 % 08/14/23 22:15 [place] % (Auto) 5.0 % 08/14/23 22:15 Eos % (Auto) 0.6 % 08/14/23 22:15 Baso % (Auto) 0.1 % 08/14/23 22:15 Neut # (Auto) 3.76 10^3/uL (1.8-7.7) 08/14/23 22:15 Lymph # (Auto) 4.2 10^3/uL (0.8-4.8) 08/14/23 22:15 [place] # (Auto) 0.4 10^3/uL (0.2-0.9) 08/14/23 22:15 Eos # (Auto) 0.1 10^3/uL (0.0-0.8) 08/14/23 22:15 Baso # (Auto) 0.0 10^3/uL (0.0-0.1) 08/14/23 22:15 Nucleated RBC % (auto) 0 % 08/14/23 22:15 Nucleated RBCs # 0.0 /100WBC 08/14/23 22:15 Sodium 140 mmol/L (136-145) 08/14/23 22:15 Potassium 3.2 mmol/L (3.5-5.1) L 08/14/23 22:15 Chloride 104 mmol/L (98-107) 08/14/23 22:15 Carbon Dioxide 24 mmol/L (22-29) 08/14/23 22:15 Anion Gap 15.2 (5-19) 08/14/23 22:15 BUN 8 mg/dL (6-20) 08/14/23 22:15 Creatinine 0.7 mg/dL (0.5-0.9) 08/14/23 22:15 GFR Calculation 91.8 mL/min (90-130) 08/14/23 22:15 Glucose 90 mg/dL (65-115) 08/14/23 22:15 Calculated Osmolality 288 mOsm/kg (285-295) 08/14/23 22:15 Calcium 8.4 mg/dL (8.5-10.5) L 08/14/23 22:15 Total Bilirubin 0.2 mg/dL (0.15-1.2) 08/14/23 22:15 AST 16 U/L (0-32) 08/14/23 22:15 ALT 12 U/L (0-33) 08/14/23 22:15 Alkaline Phosphatase 76 U/L (35-105) 08/14/23 22:15 Total Protein 6.5 g/dL (6.6-8.7) L 08/14/23 22:15 Albumin 3.9 g/dL (3.5-5.2) 08/14/23 22:15 Globulin 2.6 g/dL (1.3-4.6) 08/14/23 22:15 Lipase 28 U/L (13-60) 08/14/23 22:15 XR interpretation done by ED provider, pending radiology final review Discharge Plan Discharge Patient Disposition: Home Clinical Impression: Abdominal pain Qualifiers: Abdominal location: generalized Qualified Code(s): R10.84 - Generalized abdominal pain Crohn disease Qualifiers: Gastrointestinal tract location: unspecified location Digestive disease complication type: without complication Qualified Code(s): K50.90 - Crohn's disease, unspecified, without complications Condition: Stable Prescriptions: New sulfasalazine 500 mg tablet 0.5 g PO BID Qty: 60 0RF Rx Instructions: give with food (meal/snack) hydrocodone-acetaminophen 5-325 mg tablet 1 tab PO Q8H PRN (Reason: pain (scale score 7-10)) Qty: 7 0RF ondansetron 4 mg tablet,disintegrating 4 mg PO Q8H PRN (Reason: nausea and vomiting) Qty: 7 0RF No Action mirtazapine 30 mg tablet 30 mg PO BEDTIME bupropion HCl 150 mg tablet extended release 24 hr 150 mg PO QAM topiramate 50 mg tablet 50 mg PO BEDTIME ondansetron HCl 4 mg tablet 4 mg PO DAILY Qty: 20 0RF oxycodone 5 mg tablet 5 mg PO DAILY PRN (Reason: pain) Qty: 7 0RF Discharge Orders: Discharge ED (Routine); Ordered 08/14/23 Ordered By: Chuy Kolb Referrals: Raheem Matos MD [Primary Care Provider] - Discharge Diet: Advance as tolerated Discharge Activity: Increase activity as tolerated Patient Instructions: Abdominal Pain (ED), Opioid Safety Activity Restrictions/Additional Instructions: Stay on clear to full liquid diet until abdominal pain improves. Activity as tolerated. Use medications as directed. Take sulfasalazine 500 mg twice daily for inflammation and pain related to Crohn's. Use hydrocodone as needed for severe pain. Use a dancer [place] as needed for nausea. Follow-up with primary care for refills of medication. Return to ER for worsening symptoms such as inability to hold fluids down, high fever, blood in vomit or stool, or new concerns. Coding Level of Care Code ED Accounting Software Specialist for Augusto Gonzalez
[2023-08-14 22:19] LABS: Basophils % 0.1 %; Eosinophils # 0.1 10^3/uL (0.0-0.8); Eosinophils % 0.6 %; Hematocrit 41.5 % (36-47); Lymphocytes # 4.2 10^3/uL (0.8-4.8); Lymphocytes % 49.7 %; Mean Corpuscular HGB Conc 32.8 g/dL (30-55); Mean Corpuscular Hemoglobin 29.8 pg (27-33); Mean Corpuscular Volume 90.8 fl (85-98); Mean Platelet Volume 10.5 fL (7.4-10.4); Monocytes # 0.4 10^3/uL (0.2-0.9); Neutrophils # 3.76 10^3/uL (1.8-7.7); Neutrophils % 44.4 %; Nucleated Red Blood Cells % 0 %; Platelet Count 216 10^3/cmm (157-399); Red Blood Count 4.57 10^6/uL (3.85-5.65); Red Cell Distribution Width 13.2 % (12.1-15.1); White Blood Count 8.47 10^3/uL (3.29-11.43)
[2023-08-14] MEDS: metoclopramide 5 mg/mL SDV 2 mL 10 MG IM (22:35)
[2023-08-14 22:37] VITALS: RESP 18; O2SAT 96
[2023-08-14] MEDS: HYDROmorphone 1 mg/mL INJ 1 mL IM (22:37)
[2023-08-14 22:38] LABS: Alanine Aminotransferase 12 U/L (0-33); Albumin Level 3.9 g/dL (3.5-5.2); Alkaline Phosphatase 76 U/L (35-105); Anion Gap 15.2 (5-19); Aspartate Amino Transferase 16 U/L (0-32); Blood Urea Nitrogen 8 mg/dL (6-20); Calcium 8.4 mg/dL (8.5-10.5); Carbon Dioxide 24 mmol/L (22-29); Chloride 104 mmol/L (98-107); Globulin 2.6 g/dL (1.3-4.6); Glomerular Filtration Rate 91.8 mL/min (90-130); Glucose 90 mg/dL (65-115); Lipase 28 U/L (13-60); Osmolality Calculated 288 mOsm/kg (285-295); Potassium 3.2 mmol/L (3.5-5.1); Sodium 140 mmol/L (136-145); Total Bilirubin 0.2 mg/dL (0.15-1.2); Total Protein 6.5 g/dL (6.6-8.7)
[2023-08-14 22:47] VITALS: BP 120/84; PULSE 72; RESP 18; O2SAT 97
== END 2023-08-14 23:00 | disposition home or self-care (01) ==
PROVIDERS: Emergency Medicine; Emergency Provider Nurse Practitioner Family; PCP Family Medicine
DX: K50.90 Crohn's disease, unspecified, without complications (principal); R10.84 Generalized abdominal pain; F17.210 Nicotine dependence, cigarettes, uncomplicated
CPT/HCPCS: 74018; 80053; 83690; 85025; 96372; 99284; J1170; J2765

== ENCOUNTER → 2023-09-21 16:16 | Outpatient (BNVA) | payer MEDICAID, SELFPAY | PROVIDERS: PCP Family Medicine; Visit Provider Emergency Medicine | DX: Z20.822 Contact with and (suspected) exposure to COVID-19 (principal); U07.1 COVID-19 | CPT/HCPCS: 87426 ==

== ENCOUNTER → 2023-11-15 11:18 | Outpatient (BNVA) | payer MEDICAID, SELFPAY | PROVIDERS: PCP Family Medicine; Visit Provider Nurse Practitioner Family | DX: R68.89 Other general symptoms and signs (principal); K52.9 Noninfective gastroenteritis and colitis, unspecified | CPT/HCPCS: 87400; 87426 ==

== ENCOUNTER 2024-06-25 09:17 | Inpatient (IN) | payer MEDICAID, SELFPAY ==
[2024-06-25] VITALS (11 sets, daily range): BP systolic 117–149; BP diastolic 74–99; PULSE 62–96; RESP 16–22; TEMP 36.4–36.8; O2SAT 93–98
--- NOTE | 2024-06-25 09:40 | CT_ITS ---
WS: [id number] CT ABDOMEN PELVIS TECHNIQUE: Contrast-enhanced CT of the abdomen and pelvis with coronal and sagittal reformatted image s. CLINICAL INFORMATION: abd pain COMPARISON: CT 08/10/2023 DLP: 633.[address] scans at [facility] use at least one of these dose optimization techniques: automated e xposure control; mA and/or kV adjustment per patient size (includes targeted exams where dose is matc hed to clinical indication); or iterative reconstruction. FINDINGS: Fecalization of the small bowel with mild small bowel distention. Wall thickening with associated muc osal and submucosal enhancement suspicious for active Crohn's disease. This extends to the terminal i leum with additional areas of mucosal enhancement involving the colon. Developing small bowel obstruc tion not excluded. Distal ileum is decompressed. Evidence of prior small bowel resections. Large bilateral ovarian cysts.. Largest on the RIGHT measuring 5.3 x 3.6 cm. LEFT ovarian cyst measur es 3.3 x 3.9 cm. Prior appendectomy. Evidence of prior low sigmoid resection. Lung bases are well aerated. Hepatomegal y. Diffuse fatty infiltration of the liver. Normal portal vein and splenic vein. Normal spleen. Colette l GE junction. Normal caliber abdominal aorta. Adrenal glands are normal. Normal renal parenchymal enhancement. No h ydronephrosis. Tiny LEFT renal cyst. Normal pancreas. CT/CT abdomen pelvis w con* [id number] IMPRESSION: 1. Fecalization of the small bowel with fluid distention. Diffuse small bowel wall thickening with enhancement suspicious for active Crohn's disease. Additio nal enhancement involving the colon. 2. Developing small bowel obstruction not excluded. Distal ileum is decompress ed. Small bowel appearance is similar to 08/10/2023. 3. Large bilateral ovarian cysts RIGHT greater than LEFT. This could be furthe r evaluated with ultrasound.
[2024-06-25 09:54] LABS: Basophils # 0.1 10^3/uL (0.0-0.1); Basophils % 0.7 %; Eosinophils # 0.3 10^3/uL (0.0-0.8); Eosinophils % 4.3 %; Hematocrit 46.9 % (36-47); Lymphocytes # 1.7 10^3/uL (0.8-4.8); Lymphocytes % 22.2 %; Mean Corpuscular HGB Conc 32.8 g/dL (30-55); Mean Corpuscular Hemoglobin 29.4 pg (27-33); Mean Corpuscular Volume 89.7 fl (85-98); Monocytes # 0.4 10^3/uL (0.2-0.9); Monocytes % 4.9 %; Neutrophils # 5.06 10^3/uL (1.8-7.7); Neutrophils % 67.6 %; Nucleated Red Blood Cells % 0 %; Platelet Count 252 10^3/cmm (157-399); Red Blood Count 5.23 10^6/uL (3.85-5.65); Red Cell Distribution Width 13.5 % (12.1-15.1); White Blood Count 7.48 10^3/uL (3.29-11.43)
[2024-06-25] MEDS: ondansetron 2 mg/ML SDV 2 mL 4 MG IVP ×2 (09:54→17:14)
[2024-06-25] MEDS: HYDROmorphone 1 mg/mL INJ 1 mL IVP ×4 (09:54→21:21)
--- NOTE | 2024-06-25 09:58 | ED_ITS ---
HPI - Abdominal Pain 2 General: Chief Complaint: Abdominal Pain Stated Complaint: abd pain Time Seen by Provider: 06/25/24 09:28 Source: patient Mode of arrival: ambulatory Limitations: no limitations History of Present Illness: 44-year-old female with a history of Cycle Counter hn's disease states she had a partial colectomy years ago. Patient states that last night started having lower abdominal pain with nausea. States her pain is currently a 10 out of 10 she denies any fever she denies any worsening improving factors. Associated Symptoms: Denies chills, diarrhea, dysuria, fever(s), nausea and vomiting Related Data Home Medications Medication Instructions Recorded Confirmed topiramate 50 mg tablet 50 mg PO BEDTIME 08/10/23 06/25/24 fluoxetine 20 mg capsule 20 mg PO QPM 06/25/24 06/25/24 hydroxyzine pamoate 25 mg capsule 25 mg PO TID PRN Anxiety 06/25/24 06/25/24 mirtazapine 30 mg tablet 30 mg PO BEDTIME 06/25/24 06/25/24 naltrexone 50 mg tablet 50 mg PO BEDTIME 06/25/24 06/25/24 olanzapine 10 mg tablet 10 mg PO BEDTIME 06/25/24 06/25/24 Allergies Allergy/AdvReac Type Severity Reaction Status Date / Time codeine Allergy Intermediate ALGY-Rash Verified 03/31/24 14:40 Review of Systems 2 Const: Denies: fever(s), chills, body aches or change in appetite ENMT: Denies: throat pain or dental pain Card: Denies: chest pain Resp: Denies: dyspnea GI: Reports: abdominal pain; Denies: nausea, vomiting or diarrhea : Denies: dysuria Musc: Denies: neck pain or back pain Skin/Breast: Denies: rash Neuro: Denies: headache(s) PFSH ED 2 PFSH: Medical History Crohn disease Small bowel obstruction Dehydration Acute cystitis Small bowel obstruction Anxiety Crohn's disease Surgical History S/P appendectomy History of bowel resection Family History Denies family history of CAD (coronary artery disease) Social History Smoking and tobacco/nicotine status: current every day tobacco/nicotine user cigarettes Packs smoked per day: 0.25 Alcohol intake: never Substance/Drug Use: current Substance/Drug use frequency: other Other substance/drug use details: IV drug user Female Reproductive History: Spontaneous abortions: No Physical Exam 2 Const: COMMON NORMALS: no acute distress, patient oriented x3 and healthy appearing HENMT: COMMON NORMALS: normocephalic and atraumatic HEAD & SCALP: n ormocephalic and atraumatic Neck/C-Spine: COMMON NORMALS: full ROM and supple Chest: COMMONS NORMALS: normal inspection of the chest Resp: COMMON NORMALS: normal respiratory effort Cardio: COMMON NORMALS: regular rate, regular rhythm and No murmurs present (Cardio) RATE: regular rate RHYTHM: regular rhythm GI: COMMON NORMALS: Normal to inspection, nondistended, normoactive bowel sounds present, Soft to palpation and no masses PALPATION: Yes Soft to palpation OTHER: lower abd tenderness Extremity: COMMON NORMALS: normal to inspection and full ROM Neuro: COMMON NORMALS: patient oriented x3, moves all extremities and no focal motor deficits Psych: COMMON NORMALS: mental status grossly normal, Normal thought process present and cooperative THOUGHT PROCESS: Normal thought process present Skin: COMMON NORMALS: no rashes or lesions noted and no wounds GENERAL SKIN EXAM: no rashes or lesions noted Course 2 Vital Signs: Vital signs: Vital Signs Temperature 97.5 F L 06/25/24 09:32 Pulse Rate 77 06/25/24 10:30 Respiratory Rate 20 H 06/25/24 09:54 Blood Pressure 125/86 06/25/24 10:30 Pulse Oximetry 96 06/25/24 10:30 Oxygen Delivery Me thod Room Air 06/25/24 09:27 MDM - Abdominal Pain Medical Decision Making Patient presents with abdominal pain CT did show likely Crohn's flare she had no vomiting CT showed possible early bowel obstruction I did speak to surgery was consulted will hold off on NG tube at this time and start patient on steroids will admit to the hospitalist Medical Records I reviewed the patient's medical records. Lab Data I reviewed the patient's lab results. 06/25/24 09:43 06/25/24 09:43 Labs/Radiology: Radiology Impressions Abdomen/Pelvis CT 06/25/24 09:40 IMPRESSION: 1. Fecalization of the small bowel with fluid distention. Diffuse small bowel wall thickening with enhancement suspicious for active Crohn's disease. Additional enhancement involving the colon. 2. Developing small bowel obstruction not excluded. Distal ileum is decompressed. Small bowel appearance is similar to 08/10/2023. 3. Large bilateral ovarian cysts RIGHT greater than LEFT. This could be further evaluated with ultrasound. Laboratory Results WBC 7.48 10^3/uL (3.29-11.43) 06/25/24 09:43 RBC 5.23 10^6/uL (3.85-5.65) 06/25/24 09:43 Hgb 15.40 g/dL (11.27-16.99) 06/25/24 09:43 Hct 46.9 % (36-47) 06/25/24 09:43 MCV 89.7 fl (85-98) 06/25/24 09:43 MCH 29.4 pg (27-33) 06/25/24 09:43 MCHC 32.8 g/dL (30-55) 06/25/24 09:43 RDW 13.5 % (12.1-15.1) 06/25/24 09:43 Plt Count 252 10^3/cmm (157-399) 06/25/24 09:43 MPV 10.0 fL (7.4-10.4) 06/25/24 09:43 Neut % (Auto) 67.6 % 06/25/24 09:43 Lymph % (Auto) 22.2 % 06/25/24 09:43 [place] % (Auto) 4.9 % 06/25/24 09:43 Eos % (Auto) 4.3 % 06/25/24 09:43 Baso % (Auto) 0.7 % 06/25/24 09:43 Neut # (Auto) 5.06 10^3/uL (1.8-7.7) 06/25/24 09:43 Lymph # (Auto) 1.7 10^3/uL (0.8-4.8) 06/25/24 09:43 [place] # (Auto) 0.4 10^3/uL (0.2-0.9) 06/25/24 09:43 Eos # (Auto) 0.3 10^3/uL (0.0-0.8) 06/25/24 09:43 Baso # (Auto) 0.1 10^3/uL (0.0-0.1) 06/25/24 09:43 Nucleated RBC % (auto) 0 % 06/25/24 09:43 Nucleated RBCs # 0.0 /100WBC 06/25/24 09:43 Sodium 139 mmol/L (136-145) 06/25/24 09:43 Potassium 4.1 mmol/L (3.5-5.1) 06/25/24 09:43 Chloride 103 mmol/L (98-107) 06/25/24 09:43 Carbon Dioxide 22 mmol/L (22-29) 06/25/24 09:43 Anion Gap 18.1 (5-19) 06/25/24 09:43 BUN 13 mg/dL (6-20) 06/25/24 09:43 Creatinine 0.7 mg/dL (0.5-0.9) 06/25/24 09:43 GFR Calculation 91.3 mL/min (90-130) 06/25/24 09:43 Glucose 108 mg/dL (65-115) 06/25/24 09:43 Calculated Osmolality 289 mOsm/kg (285-295) 06/25/24 09:43 Calcium 8.8 mg/dL (8.5-10.5) 06/25/24 09:43 Total Bilirubin 0.2 mg/dL (0.15-1.2) 06/25/24 09:43 AST 25 U/L (0-32) 06/25/24 09:43 ALT 22 U/L (0-33) 06/25/24 09:43 Alkaline Phosphatase 111 U/L (35-105) H 06/25/24 09:43 Total Protein 7.3 g/dL (6.6-8.7) 06/25/24 09:43 Albumin 4.3 g/dL (3.5-5.2) 06/25/24 09:43 Globulin 3.0 g/dL (1.3-4.6) 06/25/24 09:43 Lipase 24 U/L (13-60) 06/25/24 09:43 HCG, Qual Negative (Negative) 06/25/24 09:43 Urine Color Yellow (Yellow) 06/25/24 09:43 Urine Appearance Clear (CLEAR) 06/25/24 09:43 Urine pH 5.5 (5-7) 06/25/24 09:43 Ur Specific [place] 1.023 (1.005-1.030) 06/25/24 09:43 Urine Protein Negative (Negative) 06/25/24 09:43 Urine Glucose (UA) Negative (Normal) 06/25/24 09:43 Urine Ketones Negative (Negative) 06/25/24 09:43 Urine Blood Negative (Negative) 06/25/24 09:43 Urine Nitrate Negative (Negative) 06/25/24 09:43 Urine Bilirubin Negative (Negative) 06/25/24 09:43 Urine Urobilinogen 1.0 mg/dL (Negative) 06/25/24 09:43 Ur Leukocyte Esterase Negative (Negative) 06/25/24 09:43 Urine RBC 0-2 /hpf (0-2) 06/25/24 09:43 Urine WBC 0-5 /hpf (0-5) 06/25/24 09:43 Ur Squamous Epith Cells 0-5 /hpf (0-5) 06/25/24 09:43 Amorphous Sediment Not Reportable 06/25/24 09:43 Urine Bacteria None seen /hpf (NONE) 06/25/24 09:43 Hyaline Casts 0.40 /lpf 06/25/24 09:43 All radiology interpretation(s) finalized by discharge Discharge Plan Discharge Patient Disposition: Admitted As Inpatient Clinical Impression: Abdominal pain, Crohn's colitis Condition: Stable Prescriptions: No Action naltrexone 50 mg tablet 50 mg PO BEDTIME olanzapine 10 mg tablet 10 mg PO BEDTIME mirtazapine 30 mg tablet 30 mg PO BEDTIME fluoxetine 20 mg capsule 20 mg PO QPM hydroxyzine pamoate 25 mg capsule 25 mg PO TID PRN (Reason: Anxiety) topiramate 50 mg tablet 50 mg PO BEDTIME Referrals: Raheem Matos MD [Primary Care Provider] - Patient Instructions: Abdominal Pain (ED) Coding Level of Care Code ED Net Manager for Augusto Gonzalez
[2024-06-25 09:59] LABS: Charge for UA Resulting for Rev
[2024-06-25 10:05] LABS: Bilirubin Urine Negative (Negative); Blood Urine Negative (Negative); Glucose Urine UA Negative (Normal); Ketones Urine Negative (Negative); Leukocyte Esterase Urine Negative (Negative); Nitrate Urine Negative (Negative); Protein Urine Negative (Negative); Specific Gravity, Urine 1.023 (1.005-1.030); Urine Appearance Clear (CLEAR); Urine Color Yellow (Yellow); pH Urine 5.5 (5-7)
[2024-06-25 10:07] LABS: Bacteria Urine None Seen /hpf; RBC Urine 0-2 /hpf (0-2); Squamous Epithelial Cell Urine 0-5 /hpf (0-5); WBC Urine 0-5 /hpf (0-5)
[2024-06-25 10:10] LABS: HCG, Serum Qual Negative (Negative)
[2024-06-25 10:12] LABS: Alanine Aminotransferase 22 U/L (0-33); Albumin Level 4.3 g/dL (3.5-5.2); Alkaline Phosphatase 111 U/L (35-105); Anion Gap 18.1 (5-19); Aspartate Amino Transferase 25 U/L (0-32); Blood Urea Nitrogen 13 mg/dL (6-20); Calcium 8.8 mg/dL (8.5-10.5); Carbon Dioxide 22 mmol/L (22-29); Chloride 103 mmol/L (98-107); Creatinine Clr Calc Pharmacy 102.6025; Glomerular Filtration Rate 91.3 mL/min (90-130); Glucose 108 mg/dL (65-115); Lipase 24 U/L (13-60); Osmolality Calculated 289 mOsm/kg (285-295); Potassium 4.1 mmol/L (3.5-5.1); Sodium 139 mmol/L (136-145); Total Bilirubin 0.2 mg/dL (0.15-1.2); Total Protein 7.3 g/dL (6.6-8.7)
[2024-06-25] MEDS: iohexol 350 mg/mL 500 mL Btl (per mL) IV (10:23)
[2024-06-25] MEDS: methylPREDNISolone sod succ 125 mg/2 mL INJ 60 MG IVP (11:27)
[2024-06-25] MEDS: ciprofloxacin 400 MG/200 ML PREMIX 200 MG IV ×2 (11:29→22:00)
[2024-06-25] MEDS: metroNIDAZOLE IV 500 MG/100 ML PREMIX 100 MG IV ×3 (11:30→23:03)
--- NOTE | 2024-06-25 12:03 | P.HP_ITS ---
Providers/Chief Complaint 2 Admitting Physician: Kar Collins MD Primary Care Provider: Raheem Matos MD Chief Complaint: abd pain History of Present Illness Nette Marks is a 44 year old female with prior history of Crohn's, abdominal surgery x 3, partial small bowel resection, ostomy and then reversal, rectal fistula, appendectomy presenting to the emergency department with complaints of nausea, abdominal discomfort since last night. She states she is still passing some gas today. Last bowel movement was yesterday and soft. She reports this is what it felt like when she had a partial small bowel obstruction her last admission in July. She has not been hospitalized since that time. She reports she did have a follow-up colonoscopy, they did not show any active Crohn's following that hospital stay. She reports no fever, ill contacts. She has not vomited yet today. She is still significantly nauseated. She is concerned she may not be able to keep down fluids in her current state. Abdominal pain is central. No blood in stool. No diarrhea. Review of Systems 2 General: Reports: 10 or more systems reviewed and unremarkable except in HPI and below Card: Denies: chest pain Resp: Denies: dyspnea GI: Reports: abdominal pain and nausea; Denies: vomiting, hematochezia or melena Medications/Allergies Home Medications Medication Instructions Recorded Confirmed Last Taken Type topiramate 50 mg tablet 50 mg PO BEDTIME 08/10/23 06/25/24 06/24/24 History fluoxetine 20 mg capsule 20 mg PO QPM 06/25/24 06/25/24 06/24/24 History hydroxyzine pamoate 25 mg capsule 25 mg PO TID PRN Anxiety 06/25/24 06/25/24 Unknown History mirtazapine 30 mg tablet 30 mg PO BEDTIME 06/25/24 06/25/24 06/24/24 History naltrexone 50 mg tablet 50 mg PO BEDTIME 06/25/24 06/25/24 06/24/24 History olanzapine 10 mg tablet 10 mg PO BEDTIME 06/25/24 06/25/24 06/24/24 History Allergies Allergy/AdvReac Type Severity Reaction Status Date / Time codeine Allergy Intermediate ALGY-Rash Verified 03/31/24 14:40 PFSH Acute 2 PFSH: Medical History (Updated 06/25/24 @ 12:15 by Kar Collins MD) Dehydration Crohn disease Small bowel obstruction Acute cystitis Small bowel obstruction Anxiety Crohn's disease Surgical History S/P appendectomy History of bowel resection Family History Denies family history of CAD (coronary artery disease) Social History Smoking and tobacco/nicotine status: current every day tobacco/nicotine user cigarettes Packs smoked per day: 0.25 Alcohol intake: never Substance/Drug Use: current Substance/Drug use frequency: other Other substance/drug use details: IV drug user Female Reproductive History: Spontaneous abortions: No Vitals/I&O/Wt Last Vital Signs Temp 97.5 F L 06/25/24 09:32 Pulse 77 06/25/24 10:30 Resp 20 H 06/25/24 09:54 BP 125/86 06/25/24 10:30 Pulse Ox 96 06/25/24 10:30 O2 Del Method Room Air 06/25/24 09:27 Weight last 48 hrs Weight 81.647 kg Physical Exam 2 Narrative: General exam is a white female, complaining of abdominal discomfort HEENT: Atraumatic normocephalic. Oropharynx is clear. Neck is supple no lymphadenopathy thyromegaly Cardiovascular regular rate and rhythm, without murmur Lungs clear Abdomen is tender, globally. No obvious organomegaly. Bowel sounds noted. exam is deferred Extremities no sinus clubbing edema, cap refill brisk Skin no rash Neuro no focal deficits Data 06/25/24 09:43 06/25/24 09:43 Other Labs: LFTs normal with exception of alk phos of 111 Calcium and albumin are normal I have ordered a CRP TSH in July was normal hCG negative Urinalysis negative Abdomen/pelvis CT which I reviewed demonstrates some small bowel wall thickening, fecalization of the small bowel, concern of developing small bowel obstruction, bilateral ovarian cysts. A&P Assessment and plan (1) Abdominal pain: Patient with significant bowel abdominal pain, nausea Concern of developing partial small bowel obstruction Surgery consult N.p.o. Pain control IV fluids Encourage ambulation Etiology of pain could be scar tissue, or activation of Crohn's. Conservative management for now. As she is not vomiting and there is not a significant amount of gastric distention will have surgery evaluate and comment whether NG is needed at this time. (2) Crohn's colitis: Check CRP Possible Crohn's exacerbation Continue Solu-Medrol 60 mg IV every 24 hours Corazon and Irma See above (3) Dehydration: IV fluids as noted above Plan Other medical problems as outlined in past medical history Full code Lovenox for DVT prophylaxis Attestations 2 Medical Necessity Statement*: Will need greater than 2 midnight stay for evaluation and treatment of possible Crohn's exacerbation, developing partial small bowel obstruction. Diagnoses Abdominal pain R10.9 Crohn's colitis K50.10 Dehydration E86.0 Time Spent (min) 45
[2024-06-25 12:33] LABS: C Reactive Protein 4.5 mg/L (0.0-4.9)
[2024-06-25] MEDS: enoxaparin 40 mg/0.4 mL Syringe SUBCUT (15:14)
[2024-06-25] MEDS: sodium chloride 0.9% 1,000 ML 125 ML IV (15:14)
[2024-06-25] MEDS: pantoprazole 40 mg SDV IVP (15:14)
--- NOTE | 2024-06-25 16:40 | P.CONIM_ITS ---
Providers/Reason For Consult 2 Consulting Physician/Specialty*: Dr. Godfrey Rosenbaum, DO/General Surgery Reason for Consult*: Crohn's flare Attending Physician: Kar Collins MD Primary Care Provider: Raheem Matos MD History of Present Illness History of Present Illness Nette Marks is a 44 year old female, with history of Crohn's disease and bowel resection, who presented to the hospital with abdominal pain and nausea. Surgical history includes small bowel resection ostomy creation and reversal and appendectomy. She reports that she has had similar pain multiple times in the past with Crohn's flares. She is not currently on any Crohn's maintenance medication. Abdominal pain is centralized and somewhat to the right and does not radiate. It has been getting worse over the last 24 hours. She feels nauseous but denies any emesis. Denies any hematochezia and/or melena. CT abdomen pelvis shows small bowel wall thickening with some fecalization of stool but no definite small bowel obstruction. Review of Systems 2 General: Reports: 10 or more systems reviewed and unremarkable except in HPI and below Medications/Allergies Home Medications Medication Instructions Recorded Confirmed Last Taken Type topiramate 50 mg tablet 50 mg PO BEDTIME 08/10/23 06/25/24 06/24/24 History fluoxetine 20 mg capsule 20 mg PO QPM 06/25/24 06/25/24 06/24/24 History hydroxyzine pamoate 25 mg capsule 25 mg PO TID PRN Anxiety 06/25/24 06/25/24 Unknown History mirtazapine 30 mg tablet 30 mg PO BEDTIME 06/25/24 06/25/24 06/24/24 History naltrexone 50 mg tablet 50 mg PO BEDTIME 06/25/24 06/25/24 06/24/24 History olanzapine 10 mg tablet 10 mg PO BEDTIME 06/25/24 06/25/24 06/24/24 History Allergies Allergy/AdvReac Type Severity Reaction Status Date / Time codeine Allergy Intermediate ALGY-Rash Verified 03/31/24 14:40 Current Medications Generic Name Dose Route Start Last Admin Trade Name Freq PRN Reason Stop Dose Admin Enoxaparin Sodium 40 mg 06/25/24 14:30 06/25/24 15:14 Enoxaparin 40 Mg/0.4 Ml Syringe SUBCUT 40 mg Q24H VINCENT Administration Fluoxetine HCl 20 mg 06/25/24 18:00 06/25/24 17:15 Fluoxetine 20 Mg Capsule PO 20 mg QPM VINCENT Administration Hydromorphone HCl 1 mg 06/25/24 14:14 06/26/24 02:22 Hydromorphone 1 Mg/Ml Inj 1 Ml IVP 1 mg Q4H PRN Administration PAIN Sodium Chloride 1,000 mls @ 125 mls/hr 06/25/24 14:14 06/26/24 04:56 Sodium Chloride 0.9% IV 125 mls/hr .Q8H VINCENT Administration Ciprofloxacin/Dextrose 400 mg in 200 mls @ 200 mls/hr 06/25/24 23:00 06/25/24 23:05 Cipro IV Infused Q12H VINCENT Infusion Protocol Metronidazole 500 mg in 100 mls @ 100 mls/hr 06/25/24 17:00 06/26/24 05:58 Flagyl Iv IV Infused Q6H VINCENT Infusion Protocol Lanolin 1 applic 06/25/24 19:40 06/25/24 20:11 Lanolin Oint 7 Gm TOPICAL 1 applic PRN PRN Administration DRYNESS Mirtazapine 30 mg 06/25/24 21:00 06/25/24 20:11 Mirtazapine 30 Mg Tablet PO 30 mg BEDTIME VINCENT Administration Olanzapine 10 mg 06/25/24 21:00 06/25/24 20:11 Olanzapine 10 Mg Tablet PO 10 mg BEDTIME VINCENT Administration Ondansetron HCl 4 mg 06/25/24 14:14 06/25/24 17:14 Ondansetron 2 Mg/Ml Sdv 2 Ml IVP 4 mg Q6H PRN Administration vomiting, or N/V if npo Pantoprazole Sodium 40 mg 06/25/24 14:14 06/26/24 02:15 Pantoprazole 40 Mg Sdv IVP 40 mg Q12H VINCENT Administration Topiramate 50 mg 06/25/24 21:00 06/25/24 20:11 Topiramate 25 Mg Tablet PO 50 mg BEDTIME VINCENT Administration PFSH Acute 2 PFSH: Medical History Dehydration Crohn disease Small bowel obstruction Acute cystitis Small bowel obstruction Anxiety Crohn's disease Surgical History S/P appendectomy History of bowel resection Family History Denies family history of CAD (coronary artery disease) Social History Smoking and tobacco/nicotine status: current every day tobacco/nicotine user cigarettes Packs smoked per day: 0.25 Alcohol intake: never Substance/Drug Use: current Substance/Drug use frequency: other Other substance/drug use details: IV drug user Female Reproductive History: Spontaneous abortions: No Vitals/I&O/Wt Last Vital Signs Temp 97.9 F 06/26/24 04:00 Pulse 81 06/26/24 04:00 Resp 17 06/26/24 04:00 BP 100/65 06/26/24 04:00 Pulse Ox 93 06/26/24 04:00 O2 Del Method Room Air 06/26/24 04:00 06/25/24 06/26/24 06/26/24 22:59 06:59 14:59 Intake Total 875 / 1175 400 / 1575 Balance 875 / 1175 400 / 1575 Weight last 48 hrs Weight 179 lb 7 oz Weight 180 lb Physical Exam 2 Narrative: General : Patient is well developed , no acute distress, oriented x3 Head : Normal cephalic, a-traumatic. Ears : Pinnae and external canal are normal. Hearing is normal. Eyes : PERRLA, Sclera and injection are normal. No conjunctival discharge. Nose : Mucous membranes are without erythema. Throat : buccal mucosa is normal, gums are without significant recession or hypertrophy. Lungs : Equal chest rise bilaterally, no use of accessory muscles, trachea is midline. Cor : Rate and rhythm are normal. Abdomen : Soft, mild distention, some periumbilical and right-sided abdominal tenderness, no g/r/m Extremities : No edema, no cyanosis or clubbing, dorsalis pedis pulses are present bilaterally, non-tender to palpation of calves. Upper extremities are normal bilaterally. Back : non-tender to palpation, no CVA tenderness. Neuro : CN II - XII intact, Upper and lower extremities have equal and full strength Data 06/26/24 02:43 06/26/24 02:43 A&P Assessment and plan (1) Crohn's colitis: Plan Zofran Steroids are the main stay of Crohn's flare Hopefully she does not need any surgical intervention. If she has any emesis please place NG tube to low remittent suction IV fluids Will continue to follow and reevaluate for possible surgical intervention Medical management per hospitalist Coding Level of Care Code 65223 Diagnoses Crohn's colitis K50.10
[2024-06-25] MEDS: fluoxetine 20 mg Capsule PO (17:15)
[2024-06-25] MEDS: OLANZapine 10 mg TABLET PO (20:11)
[2024-06-25] MEDS: lanolin oint 7 gm 1 APPLIC TOPICAL (20:11)
[2024-06-25] MEDS: mirtazapine 30 mg Tablet PO (20:11)
[2024-06-25] MEDS: topiramate 25 mg Tablet 50 MG PO (20:11)
[2024-06-26] VITALS (7 sets, daily range): BP systolic 95–121; BP diastolic 56–80; PULSE 69–91; RESP 15–17; TEMP 36.3–36.8; O2SAT 93–96
[2024-06-26] MEDS: pantoprazole 40 mg SDV IVP ×2 (02:15→16:13)
[2024-06-26] MEDS: HYDROmorphone 1 mg/mL INJ 1 mL IVP (02:22)
[2024-06-26 04:19] LABS: Basophils % 0.1 %; Hematocrit 41.5 % (36-47); Lymphocytes # 1.2 10^3/uL (0.8-4.8); Lymphocytes % 11.9 %; Mean Corpuscular HGB Conc 32.5 g/dL (30-55); Mean Corpuscular Volume 89.2 fl (85-98); Mean Platelet Volume 10.6 fL (7.4-10.4); Monocytes # 0.2 10^3/uL (0.2-0.9); Monocytes % 1.9 %; Neutrophils # 8.42 10^3/uL (1.8-7.7); Neutrophils % 85.8 %; Nucleated Red Blood Cells % 0 %; Platelet Count 242 10^3/cmm (157-399); Red Blood Count 4.65 10^6/uL (3.85-5.65); Red Cell Distribution Width 13.5 % (12.1-15.1); White Blood Count 9.82 10^3/uL (3.29-11.43)
[2024-06-26 04:42] LABS: Alanine Aminotransferase 19 U/L (0-33); Albumin Level 3.8 g/dL (3.5-5.2); Alkaline Phosphatase 80 U/L (35-105); Anion Gap 17.9 (5-19); Aspartate Amino Transferase 18 U/L (0-32); Blood Urea Nitrogen 12 mg/dL (6-20); Calcium 8.3 mg/dL (8.5-10.5); Carbon Dioxide 20 mmol/L (22-29); Chloride 105 mmol/L (98-107); Creatinine Clr Calc Pharmacy 119.7029; Globulin 2.5 g/dL (1.3-4.6); Glomerular Filtration Rate 109.1 mL/min (90-130); Glucose 114 mg/dL (65-115); Magnesium 1.6 mg/dL (1.7-2.3); Osmolality Calculated 289 mOsm/kg (285-295); Potassium 3.9 mmol/L (3.5-5.1); Sodium 139 mmol/L (136-145); Total Bilirubin 0.2 mg/dL (0.15-1.2); Total Protein 6.3 g/dL (6.6-8.7)
[2024-06-26] MEDS: sodium chloride 0.9% 1,000 ML 125 ML IV ×4 (04:56→23:23)
[2024-06-26] MEDS: metroNIDAZOLE IV 500 MG/100 ML PREMIX 100 MG IV ×4 (04:57→23:23)
--- NOTE | 2024-06-26 07:45 | P.PN_ITS ---
Subjective 2 Subjective: Patient reports nausea is a little bit less. No flatus yet this morning. Abdominal pain slightly better. Feels like she might need to have a bowel movement. Medications: Reviewed: Yes Vitals/I&O/Wt Last Vital Signs Temp 97.9 F 06/26/24 04:00 Pulse 81 06/26/24 04:00 Resp 17 06/26/24 04:00 BP 100/65 06/26/24 04:00 Pulse Ox 93 06/26/24 04:00 O2 Del Method Room Air 06/26/24 04:00 06/25/24 06/26/24 06/26/24 22:59 06:59 14:59 Intake Total 875 / 1175 400 / 1575 Balance 875 / 1175 400 / 1575 Weight last 48 hrs Weight 81.391 kg Weight 81.647 kg Physical Exam 2 Narrative: General exam is a white female, complaining of abdominal discomfort, currently does not appear distressed Neck is supple no lymphadenopathy thyromegaly Cardiovascular regular rate and rhythm, without murmur Lungs clear Abdomen is tender, globally. No obvious organomegaly. Bowel sounds noted. Extremities no sinus clubbing edema, cap refill brisk Data 06/26/24 02:43 06/26/24 02:43 A&P Assessment and plan (1) Abdominal pain: Patient with significant bowel abdominal pain, nausea Concern of developing partial small bowel obstruction Surgery consult obtained Continue n.p.o. Pain control IV fluids Glycerin suppository Encourage ambulation Etiology of pain could be scar tissue, or activation of Crohn's. Conservative management for now. Glycerin suppository (2) Crohn's colitis: Check CRP Possible Crohn's exacerbation Continue Solu-Medrol 60 mg IV every 24 hours Continue Flagyl and Cipro See above (3) Dehydration: IV fluids as noted above Plan Hypomagnesemia, supplement other medical problems as outlined in past medical history Full code Lovenox for DVT prophylaxis Attestations 2 Medical Necessity Statement*: Needs continued hospitalization secondary to continued nausea, abdominal pain, concern for Crohn's exacerbation with developing partial small bowel obstruction Diagnoses Abdominal pain R10.9 Crohn's colitis K50.10 Dehydration E86.0 Time Spent (min) 21
[2024-06-26] MEDS: magnesium sulfate premix 2 GM/50 ML PIGGYBACK IV (09:53)
[2024-06-26] MEDS: glycerin adult supp 1 EACH PR (09:53)
[2024-06-26] MEDS: ciprofloxacin 400 MG/200 ML PREMIX 200 MG IV ×2 (11:42→23:23)
[2024-06-26] MEDS: methylPREDNISolone sod succ 125 mg/2 mL INJ 60 MG IVP (11:50)
[2024-06-26] MEDS: enoxaparin 40 mg/0.4 mL Syringe SUBCUT (16:12)
--- NOTE | 2024-06-26 16:40 | P.PN_ITS ---
Subjective 2 Subjective: Patient seen and examined. Pain much improved. Denies any nausea or vomiting. Positive BM Vitals/I&O/Wt Last Vital Signs Temp 98.4 F 06/27/24 04:00 Pulse 81 06/27/24 04:00 Resp 17 06/27/24 04:00 BP 100/62 06/27/24 04:00 Pulse Ox 95 06/27/24 04:00 O2 Del Method Room Air 06/27/24 04:00 06/26/24 06/26/24 06/27/24 14:59 22:59 06:59 Intake Total 1307.5 / 1307.5 2132.917 / 3440.417 2145.833 / 5586.250 Output Total 500 / 500 Balance 1307.5 / 1307.5 1632.917 / 2940.417 2145.833 / 5086.250 Weight last 48 hrs Weight 183 lb 9.6 oz Weight 179 lb 7 oz Weight 180 lb Physical Exam 2 Narrative: Pulm no acute distress, awake alert and oriented x 3 Abdomen: Soft, nondistended, minimally tender Data 06/27/24 05:09 06/27/24 05:09 A&P Assessment and plan (1) Crohn's colitis: Plan Zofran Steroids for Crohn's flare Advance diet IV fluids Will continue to follow and reevaluate for possible surgical intervention Medical management per hospitalist Attestations 2 Medical Necessity Statement*: Per primary Coding Level of Care Code 94948 Diagnoses Crohn's colitis K50.10
[2024-06-26] MEDS: fluoxetine 20 mg Capsule PO (17:47)
[2024-06-26] MEDS: topiramate 25 mg Tablet 50 MG PO (19:58)
[2024-06-26] MEDS: mirtazapine 30 mg Tablet PO (19:59)
[2024-06-26] MEDS: OLANZapine 10 mg TABLET PO (19:59)
[2024-06-27] VITALS: BP 115/74; PULSE 86; RESP 16; TEMP 36.8; O2SAT 95
--- NOTE | 2024-06-27 00:15 | PC.NURSE ---
Dr. Reed ordered okay to place IV in foot. Patient is a very difficult to obtain IV access on.
[2024-06-27 04:00] VITALS: BP 100/62; PULSE 81; RESP 17; TEMP 36.9; O2SAT 95
[2024-06-27] MEDS: metroNIDAZOLE IV 500 MG/100 ML PREMIX 100 MG IV (04:00)
[2024-06-27] MEDS: pantoprazole 40 mg SDV IVP (04:00)
[2024-06-27 05:18] LABS: Basophils % 0.1 %; Hematocrit 40.1 % (36-47); Lymphocytes # 1.7 10^3/uL (0.8-4.8); Lymphocytes % 19.6 %; Mean Corpuscular HGB Conc 31.9 g/dL (30-55); Mean Corpuscular Volume 90.7 fl (85-98); Mean Platelet Volume 9.9 fL (7.4-10.4); Monocytes # 0.2 10^3/uL (0.2-0.9); Monocytes % 2.7 %; Neutrophils # 6.65 10^3/uL (1.8-7.7); Neutrophils % 77.1 %; Nucleated Red Blood Cells % 0 %; Platelet Count 229 10^3/cmm (157-399); Red Blood Count 4.42 10^6/uL (3.85-5.65); Red Cell Distribution Width 13.7 % (12.1-15.1); White Blood Count 8.62 10^3/uL (3.29-11.43)
[2024-06-27 05:36] LABS: Alanine Aminotransferase 21 U/L (0-33); Albumin Level 3.6 g/dL (3.5-5.2); Alkaline Phosphatase 71 U/L (35-105); Anion Gap 16.3 (5-19); Aspartate Amino Transferase 21 U/L (0-32); Carbon Dioxide 17 mmol/L (22-29); Chloride 111 mmol/L (98-107); Creatinine Clr Calc Pharmacy 119.5075; Globulin 2.2 g/dL (1.3-4.6); Glomerular Filtration Rate 109.1 mL/min (90-130); Glucose 160 mg/dL (65-115); Potassium 3.3 mmol/L (3.5-5.1); Sodium 141 mmol/L (136-145); Total Bilirubin 0.2 mg/dL (0.15-1.2); Total Protein 5.8 g/dL (6.6-8.7)
[2024-06-27 05:56] LABS: Blood Urea Nitrogen 4 mg/dL (6-20); Calcium 7.7 mg/dL (8.5-10.5); Magnesium 1.8 mg/dL (1.7-2.3); Osmolality Calculated 292 mOsm/kg (285-295)
[2024-06-27 07:38] VITALS: BP 127/83; PULSE 73; RESP 16; TEMP 36.8; O2SAT 96
--- NOTE | 2024-06-27 07:58 | P.DS_ITS ---
Discharge Providers Date of Admission: 06/25/24 12:28 Date of Discharge: June 27, 2024 Attending Provider at Admission: Godfrey Rosenbaum DO Attending Provider at Discharge: Kar Collins MD Primary Care Provider: Raheem Matos MD Diagnoses at Discharge Discharge Diagnosis (1) Crohn's colitis: Status: Acute Reason for Visit Reason for Visit: abd pain Hospital Course Hospital Course Patient presented with abdominal pain, nausea. She has a history of Crohn's colitis with surgery in the past, and history of rectal fistula. She was placed on pain medicine, Cipro Flagyl, fluids for dehydration. CT scan demonstrated some thickened small bowel, question of early partial small bowel obstruction. Surgery was consulted, who recommended conservative management. With this, she steadily improved and nausea went away. She started clear liquids, which was advanced to full liquids by June 27. On June 27 that she had no pain, and desired discharge. It was unclear whether this was active Crohn's exacerbation, versus early partial small bowel obstruction from adhesions from surgeries in the past. She will finish up 7 days of Cipro and Flagyl, a short prednisone taper over 8 days, and follow-up with her primary care provider. From my understanding about a year ago she had an endoscopy that did not show active Crohn's. She was given an opportunity to ask questions, and agreed with the plan. Note that her CRP was normal this admission. She had 2 bowel movements prior to discharge. Physical Exam Narrative: General Exam no distress Neck is supple Cardiovascular regular rate and rhythm Lungs clear Abdomen benign, soft and nontender Extremities no cyanosis clubbing or edema Discharge Data Studies Completed and Pending Completed Studies During Hospitalization Category Date Time Status CT abdomen pelvis w con* [id number] Stat Cat Scan 06/25/24 09:40 Completed Radiology Impressions Abdomen/Pelvis CT 06/25/24 09:40 IMPRESSION: 1. Fecalization of the small bowel with fluid distention. Diffuse small bowel wall thickening with enhancement suspicious for active Crohn's disease. Additional enhancement involving the colon. 2. Developing small bowel obstruction not excluded. Distal ileum is decompressed. Small bowel appearance is similar to 08/10/2023. 3. Large bilateral ovarian cysts RIGHT greater than LEFT. This could be further evaluated with ultrasound. Laboratory Results WBC 8.62 10^3/uL (3.29-11.43) 06/27/24 05:09 RBC 4.42 10^6/uL (3.85-5.65) 06/27/24 05:09 Hgb 12.80 g/dL (11.27-16.99) 06/27/24 05:09 Hct 40.1 % (36-47) 06/27/24 05:09 MCV 90.7 fl (85-98) 06/27/24 05:09 MCH 29.0 pg (27-33) 06/27/24 05:09 MCHC 31.9 g/dL (30-55) 06/27/24 05:09 RDW 13.7 % (12.1-15.1) 06/27/24 05:09 Plt Count 229 10^3/cmm (157-399) 06/27/24 05:09 MPV 9.9 fL (7.4-10.4) 06/27/24 05:09 Neut % (Auto) 77.1 % 06/27/24 05:09 Lymph % (Auto) 19.6 % 06/27/24 05:09 [place] % (Auto) 2.7 % 06/27/24 05:09 Eos % (Auto) 0.0 % 06/27/24 05:09 Baso % (Auto) 0.1 % 06/27/24 05:09 Neut # (Auto) 6.65 10^3/uL (1.8-7.7) 06/27/24 05:09 Lymph # (Auto) 1.7 10^3/uL (0.8-4.8) 06/27/24 05:09 [place] # (Auto) 0.2 10^3/uL (0.2-0.9) 06/27/24 05:09 Eos # (Auto) 0.0 10^3/uL (0.0-0.8) 06/27/24 05:09 Baso # (Auto) 0.0 10^3/uL (0.0-0.1) 06/27/24 05:09 Nucleated RBC % (auto) 0 % 06/27/24 05:09 Nucleated RBCs # 0.0 /100WBC 06/27/24 05:09 Sodium 141 mmol/L (136-145) 06/27/24 05:09 Potassium 3.3 mmol/L (3.5-5.1) L 06/27/24 05:09 Chloride 111 mmol/L (98-107) H 06/27/24 05:09 Carbon Dioxide 17 mmol/L (22-29) L 06/27/24 05:09 Anion Gap 16.3 (5-19) 06/27/24 05:09 BUN 4 mg/dL (6-20) L 06/27/24 05:09 Creatinine 0.6 mg/dL (0.5-0.9) 06/27/24 05:09 GFR Calculation 109.1 mL/min (90-130) 06/27/24 05:09 Glucose 160 mg/dL (65-115) H 06/27/24 05:09 Calculated Osmolality 292 mOsm/kg (285-295) 06/27/24 05:09 Calcium 7.7 mg/dL (8.5-10.5) L 06/27/24 05:09 Magnesium 1.8 mg/dL (1.7-2.3) 06/27/24 05:09 Total Bilirubin 0.2 mg/dL (0.15-1.2) 06/27/24 05:09 AST 21 U/L (0-32) 06/27/24 05:09 ALT 21 U/L (0-33) 06/27/24 05:09 Alkaline Phosphatase 71 U/L (35-105) 06/27/24 05:09 C-Reactive Protein 4.5 mg/L (0.0-4.9) 06/25/24 09:43 Total Protein 5.8 g/dL (6.6-8.7) L 06/27/24 05:09 Albumin 3.6 g/dL (3.5-5.2) 06/27/24 05:09 Globulin 2.2 g/dL (1.3-4.6) 06/27/24 05:09 Lipase 24 U/L (13-60) 06/25/24 09:43 HCG, Qual Negative (Negative) 06/25/24 09:43 Urine Color Yellow (Yellow) 06/25/24 09:43 Urine Appearance Clear (CLEAR) 06/25/24 09:43 Urine pH 5.5 (5-7) 06/25/24 09:43 Ur Specific [place] 1.023 (1.005-1.030) 06/25/24 09:43 Urine Protein Negative (Negative) 06/25/24 09:43 Urine Glucose (UA) Negative (Normal) 06/25/24 09:43 Urine Ketones Negative (Negative) 06/25/24 09:43 Urine Blood Negative (Negative) 06/25/24 09:43 Urine Nitrate Negative (Negative) 06/25/24 09:43 Urine Bilirubin Negative (Negative) 06/25/24 09:43 Urine Urobilinogen 1.0 mg/dL (Negative) 06/25/24 09:43 Ur Leukocyte Esterase Negative (Negative) 06/25/24 09:43 Urine RBC 0-2 /hpf (0-2) 06/25/24 09:43 Urine WBC 0-5 /hpf (0-5) 06/25/24 09:43 Ur Squamous Epith Cells 0-5 /hpf (0-5) 06/25/24 09:43 Amorphous Sediment Not Reportable 06/25/24 09:43 Urine Bacteria None seen /hpf (NONE) 06/25/24 09:43 Hyaline Casts 0.40 /lpf 06/25/24 09:43 Vitals Last Vital Signs Temp 98.3 F 06/27/24 07:38 Pulse 73 06/27/24 07:38 Resp 16 06/27/24 07:38 BP 127/83 06/27/24 07:38 Pulse Ox 96 06/27/24 07:38 O2 Del Method Room Air 06/27/24 04:00 Discharge Plan Discharge Patient Disposition: Home Condition: Stable Prescriptions: New prednisone 20 mg tablet 20 mg PO DAILY 8 Days Qty: 12 0RF Rx Instructions: 2/day for 4 days, then 1/day for 4 days ciprofloxacin HCl 500 mg tablet 500 mg PO BID Qty: 14 0RF metronidazole 500 mg tablet 500 mg PO Q8H 7 Days Qty: 21 0RF pantoprazole [Protonix] 40 mg tablet,delayed release (DR/EC) 40 mg PO DAILY Qty: 30 0RF Continued naltrexone 50 mg tablet 50 mg PO BEDTIME olanzapine 10 mg tablet 10 mg PO BEDTIME mirtazapine 30 mg tablet 30 mg PO BEDTIME fluoxetine 20 mg capsule 20 mg PO QPM hydroxyzine pamoate 25 mg capsule 25 mg PO TID PRN (Reason: Anxiety) topiramate 50 mg tablet 50 mg PO BEDTIME Discharge Orders: Discharge Order (Routine); Ordered 06/27/24 Ordered By: Kar Collins Referrals: Raheem Matos MD [Primary Care Provider] - 4-7 days Discharge Diet: Advance as tolerated Discharge Activity: Increase activity as tolerated Patient Instructions: Abdominal Pain (ED), Opioid Safety Activity Restrictions/Additional Instructions: Encourage fluids. Full liquids for the next 2 days then soft foods until follow-up Prednisone 40 mg a day for 4 days, then 20 mg a day for 4 days and discontinue Follow-up with your primary care provider Finish Cipro and Flagyl Return for any concerns Discharge Attestations Time Spent in Discharge Care*: greater than 30 min Quality Metrics Clinical Quality Measures [ No reported AMI, CVA or VTE this stay] Coding Level of Care Code 64177 Total time (in minutes) for Discharge: 36 Diagnoses Crohn's colitis K50.10
[2024-06-27] MEDS: potassium chloride ER 20 mEq Tablet 40 MEQ PO (08:30)
== END 2024-06-27 09:28 | disposition home or self-care (01) | DRG 386 ==
LOC: ER 11:33 → MEDSURG 12:28
PROVIDERS: Admitting Provider Surgery; Emergency Provider Emergency Medicine; PCP Family Medicine; Visit Provider Internal Medicine
DX: K50.10 Crohn's disease of large intestine without complications (principal); K56.600 Partial intestinal obstruction, unspecified as to cause; E83.42 Hypomagnesemia; E86.0 Dehydration; F17.210 Nicotine dependence, cigarettes, uncomplicated; F41.9 Anxiety disorder, unspecified; Z90.49 Acquired absence of other specified parts of digestive tract
CPT/HCPCS: 36415; 74177; 80053; 81003; 81015; 83690; 83735; 84703; 85025; 86140; 96365; 96367; 96372; 96375; 99285; J0744; J1170; J1650; J2405; J2470; J2919; J3475; J3490; J7030; Q9967

== ENCOUNTER 2024-07-08 10:16 | Emergency (ER) | payer MEDICAID, SELFPAY ==
[2024-07-08 10:51] VITALS: BP 141/92; PULSE 92; RESP 17; TEMP 36.9; O2SAT 95; BMI 30.9
--- NOTE | 2024-07-08 10:55 | ED_ITS ---
HPI - Abdominal Pain 2 General: Chief Complaint: Abdominal Pain Stated Complaint: chrones flare up Time Seen by Provider: 07/08/24 10:37 History of Present Illness: 44-year-old female with a history of Skeiner hn's presents emergency room complaining of generalized abdominal pain started last night. Denies any hematochezia melena. She has had several loose stools today. No vomiting or diarrhea no dysuria urgency or frequency Associated Symptoms: Reports GI cramping and nausea; Denies chills, dysuria and fever(s) Related Data Date of Last Menstrual Period: 06/07/24 Home Medications Medication Instructions Recorded Confirmed topiramate 50 mg tablet 50 mg PO BEDTIME 08/10/23 07/08/24 fluoxetine 20 mg capsule 20 mg PO QPM 06/25/24 07/08/24 hydroxyzine pamoate 25 mg capsule 25 mg PO TID PRN Anxiety 06/25/24 07/08/24 mirtazapine 30 mg tablet 30 mg PO BEDTIME 06/25/24 07/08/24 naltrexone 50 mg tablet 50 mg PO BEDTIME 06/25/24 07/08/24 olanzapine 10 mg tablet 10 mg PO BEDTIME 06/25/24 07/08/24 Previous Rx's Medication Instructions Recorded pantoprazole 40 mg tablet,delayed 40 mg PO DAILY #30 tabs 06/27/24 release (Protonix) ondansetron HCl 4 mg tablet 4 mg PO Q6H PRN nausea and 07/08/24 vomiting #20 tabs prednisone 20 mg tablet 20 mg PO TID #15 tabs 07/08/24 Allergies Allergy/AdvReac Type Severity Reaction Status Date / Time codeine Allergy Intermediate ALGY-Rash Verified 03/31/24 14:40 Review of Systems 2 Const: Denies: fever(s) or chills Card: Denies: chest pain Resp: Denies: dyspnea GI: Reports: abdominal pain, nausea and GI cramping : Denies: dysuria, urinary frequency or urinary urgency Musc: Denies: neck pain or back pain Skin/Breast: Denies: rash PFSH ED 2 PFSH: Medical History Dehydration Crohn disease Small bowel obstruction Acute cystitis Small bowel obstruction Anxiety Crohn's disease Surgical History S/P appendectomy History of bowel resection Family History Denies family history of CAD (coronary artery disease) Social History Smoking and tobacco/nicotine status: current every day tobacco/nicotine user cigarettes Packs smoked per day: 0.25 Alcohol intake: never Substance/Drug Use: current Substance/Drug use frequency: other Other substance/drug use details: IV drug user Female Reproductive History: Date of last menstrual period: 06/07/24 S pontaneous abortions: No Physical Exam 2 Const: COMMON NORMALS: no acute distress GENERAL APPEARANCE: cooperative and comfortable ORIENTATION/CONSCIOUSNESS: Yes awake, Yes oriented to person, Yes oriented to place and Yes oriented to time HENMT: COMMON NORMALS: normocephalic, atraumatic and hearing grossly normal bilaterally HEAD & SCALP: normocephalic and atraumatic Resp: COMMON NORMALS: normal respiratory effort, No retractions, No use of accessory muscles and clear to auscultation bilaterally AUSCULTATION: clear to auscultation bilaterally Cardio: COMMON NORMALS: regular rate, regular rhythm and No murmurs present (Cardio) RATE: regular rate RHYTHM: regular rhythm GI: COMMON NORMALS: Soft to palpation and No hepatosplenomegaly present A USCULTATION: Yes normoactive bowel sounds PALPATION: Yes Soft to palpation, No Tenderness to palpation present (GI), No Guarding due to palpation present (GI) and Yes No hepatosplenomegaly present Extremity: COMMON NORMALS: normal to inspection, capillary refill normal, no clubbing, cyanosis or edema, no calf tenderness and no pedal edema Neuro: SENSORIUM/ORIENTATION: Yes oriented to person, Yes oriented to place and Yes oriented to time Skin: COMMON NORMALS: no rashes or lesions noted GENERAL SKIN EXAM: no rashes or lesions noted Course 2 Vital Signs: Vital signs: Vital Signs Temperature 98.4 F 07/08/24 10:51 Pulse Rate 78 07/08/24 13:52 Respiratory Rate 18 07/08/24 11:45 Blood Pressure 115/73 07/08/24 13:52 Pulse Oximetry 97 07/08/24 13:52 Oxygen Delivery Me thod Room Air 07/08/24 12:49 MDM - Abdominal Pain Medical Decision Making CT does not show any signs of ileus colitis or bowel obstruction. Suspect she is having mild flare she did just complete a course of antibiotics. Will put her on a steroid taper and have her follow-up with primary care doctor liquid diet for the next several days and advance as tolerated return if worsens. Medical Records I reviewed the patient's medical records. Lab Data I reviewed the patient's lab results. 07/08/24 10:50 07/08/24 10:50 Labs/Radiology: Radiology Impressions Abdomen/Pelvis CT 07/08/24 11:17 IMPRESSION: 1. Diffuse fatty infiltration of the liver. Hepatomegaly. 2. No evidence of bowel obstruction today. Previously described small bowel enhancement has resolved. 3. Similar-appearing bilateral ovarian cysts. Laboratory Results WBC 6.89 10^3/uL (3.29-11.43) 07/08/24 10:50 RBC 4.79 10^6/uL (3.85-5.65) 07/08/24 10:50 Hgb 14.00 g/dL (11.27-16.99) 07/08/24 10:50 Hct 42.6 % (36-47) 07/08/24 10:50 MCV 88.9 fl (85-98) 07/08/24 10:50 MCH 29.2 pg (27-33) 07/08/24 10:50 MCHC 32.9 g/dL (30-55) 07/08/24 10:50 RDW 14.5 % (12.1-15.1) 07/08/24 10:50 Plt Count 270 10^3/cmm (157-399) 07/08/24 10:50 MPV 9.5 fL (7.4-10.4) 07/08/24 10:50 Neut % (Auto) 55.3 % 07/08/24 10:50 Lymph % (Auto) 33.4 % 07/08/24 10:50 Beaver % (Auto) 7.1 % 07/08/24 10:50 Eos % (Auto) 3.5 % 07/08/24 10:50 Baso % (Auto) 0.6 % 07/08/24 10:50 Neut # (Auto) 3.81 10^3/uL (1.8-7.7) 07/08/24 10:50 Lymph # (Auto) 2.3 10^3/uL (0.8-4.8) 07/08/24 10:50 Beaver # (Auto) 0.5 10^3/uL (0.2-0.9) 07/08/24 10:50 Eos # (Auto) 0.2 10^3/uL (0.0-0.8) 07/08/24 10:50 Baso # (Auto) 0.0 10^3/uL (0.0-0.1) 07/08/24 10:50 Nucleated RBC % (auto) 0 % 07/08/24 10:50 Nucleated RBCs # 0.0 /100WBC 07/08/24 10:50 Sodium 136 mmol/L (136-145) 07/08/24 10:50 Potassium 4.1 mmol/L (3.5-5.1) 07/08/24 10:50 Chloride 103 mmol/L (98-107) 07/08/24 10:50 Carbon Dioxide 18 mmol/L (22-29) L 07/08/24 10:50 Anion Gap 19.1 (5-19) H 07/08/24 10:50 BUN 9 mg/dL (6-20) 07/08/24 10:50 Creatinine 0.6 mg/dL (0.5-0.9) 07/08/24 10:50 GFR Calculation 109.1 mL/min (90-130) 07/08/24 10:50 Glucose 90 mg/dL (65-115) 07/08/24 10:50 Calculated Osmolality 280 mOsm/kg (285-295) L 07/08/24 10:50 Lactic Acid 1.5 mmol/L (0.5-2.2) 07/08/24 12:30 Calcium 8.4 mg/dL (8.5-10.5) L 07/08/24 10:50 Total Bilirubin 0.3 mg/dL (0.15-1.2) 07/08/24 10:50 AST 21 U/L (0-32) 07/08/24 10:50 ALT 20 U/L (0-33) 07/08/24 10:50 Alkaline Phosphatase 98 U/L (35-105) 07/08/24 10:50 Total Protein 6.6 g/dL (6.6-8.7) 07/08/24 10:50 Albumin 4.0 g/dL (3.5-5.2) 07/08/24 10:50 Globulin 2.6 g/dL (1.3-4.6) 07/08/24 10:50 Lipase 41 U/L (13-60) 07/08/24 10:50 Ser , Semi-Qnt 1.00 mIU/mL 07/08/24 10:50 All radiology interpretation(s) finalized by discharge Discharge Plan Discharge Patient Disposition: Home Clinical Impression: Crohn's colitis Condition: Stable Prescriptions: New ondansetron HCl 4 mg tablet 4 mg PO Q6H PRN (Reason: nausea and vomiting) Qty: 20 0RF prednisone 20 mg tablet 20 mg PO TID Qty: 15 0RF Rx Instructions: 1 p.o. 3 times daily x3 days, 1 p.o. twice daily x2 days, 1 p.o. daily x2 days No Action naltrexone 50 mg tablet 50 mg PO BEDTIME olanzapine 10 mg tablet 10 mg PO BEDTIME mirtazapine 30 mg tablet 30 mg PO BEDTIME fluoxetine 20 mg capsule 20 mg PO QPM hydroxyzine pamoate 25 mg capsule 25 mg PO TID PRN (Reason: Anxiety) pantoprazole [Protonix] 40 mg tablet,delayed release (DR/EC) 40 mg PO DAILY Qty: 30 0RF topiramate 50 mg tablet 50 mg PO BEDTIME Discharge Orders: Discharge ED (Routine); Ordered 07/08/24 Ordered By: Elmo Funes Referrals: Raheem Matos MD [Primary Care Provider] - Discharge Diet: Clear Liquid Discharge Activity: Increase activity as tolerated Patient Instructions: Opioid Safety, Pain Management Activity Restrictions/Additional Instructions: Thank you for choosing [facility] for your healthcare needs today. It is very important that you follow up as instructed or that you return to the Emergency Department should you have concerns or if your condition changes or worsens in any way. You were seen today complaining of abdominal discomfort concern of a flareup of your Crohn's. Given your description of recurrent diarrhea is reasonable at this point to start you on steroids. You are given steroids in the emergency room recommend you start the oral steroids this evening. Liquid diet for the next 2 to 3 days and advance as you are able. You are also given ondansetron to use as needed. Continue other medications. Recommend following up with your primary care or your maintenance mechanic technician regarding your Crohn's. CT scan today did not show a recurrence of the inflammatory changes seen recently that led to hospitalization. Your white blood cell count was normal. Stand Alone Forms: Work/School Release Coding Level of Care Code ED Screen Printing Cloth Spreader for Augusto Gonzalez
[2024-07-08 10:58] LABS: Basophils % 0.6 %; Eosinophils # 0.2 10^3/uL (0.0-0.8); Eosinophils % 3.5 %; Hematocrit 42.6 % (36-47); Lymphocytes # 2.3 10^3/uL (0.8-4.8); Lymphocytes % 33.4 %; Mean Corpuscular HGB Conc 32.9 g/dL (30-55); Mean Corpuscular Hemoglobin 29.2 pg (27-33); Mean Corpuscular Volume 88.9 fl (85-98); Mean Platelet Volume 9.5 fL (7.4-10.4); Monocytes # 0.5 10^3/uL (0.2-0.9); Monocytes % 7.1 %; Neutrophils # 3.81 10^3/uL (1.8-7.7); Neutrophils % 55.3 %; Nucleated Red Blood Cells % 0 %; Platelet Count 270 10^3/cmm (157-399); Red Blood Count 4.79 10^6/uL (3.85-5.65); Red Cell Distribution Width 14.5 % (12.1-15.1); White Blood Count 6.89 10^3/uL (3.29-11.43)
[2024-07-08 11:03] VITALS: BP 134/91; PULSE 87; RESP 16; O2SAT 95
--- NOTE | 2024-07-08 11:17 | CT_ITS ---
WS: [id number] CT ABDOMEN PELVIS TECHNIQUE: Contrast-enhanced CT of the abdomen and pelvis with coronal and sagittal reformatted image s. CLINICAL INFORMATION: abd pain COMPARISON: CT 06/25/2024 DLP: 696.[address] scans at [facility] use at least one of these dose optimization techniques: automated e xposure control; mA and/or kV adjustment per patient size (includes targeted exams where dose is matc hed to clinical indication); or iterative reconstruction. FINDINGS: Mild diffuse fatty infiltration of the liver. Normal portal vein and splenic vein. Normal spleen. Nor mal GE junction. Normal pancreatic enhancement. Adrenal glands are normal. No hydronephrosis in eithe r kidney. Aortic calcification. Celiac and SMA are patent. Previously described small bowel enhancement and bowel obstruction has essentially resolved. No evide nce of bowel obstruction today. Evidence of multiple prior bowel resections. Mild constipation in the RIGHT colon and transverse colon. Similar-appearing bilateral large ovarian cysts. CT/CT abdomen pelvis w con* [id number] IMPRESSION: 1. Diffuse fatty infiltration of the liver. Hepatomegaly. 2. No evidence of bowel obstruction today. Previously described small bowel en hancement has resolved. 3. Similar-appearing bilateral ovarian cysts.
[2024-07-08 11:18] LABS: Alanine Aminotransferase 20 U/L (0-33); Alkaline Phosphatase 98 U/L (35-105); Aspartate Amino Transferase 21 U/L (0-32); Blood Urea Nitrogen 9 mg/dL (6-20); Calcium 8.4 mg/dL (8.5-10.5); Carbon Dioxide 18 mmol/L (22-29); Chloride 103 mmol/L (98-107); Creatinine Clr Calc Pharmacy 124.9705; Globulin 2.6 g/dL (1.3-4.6); Glomerular Filtration Rate 109.1 mL/min (90-130); Glucose 90 mg/dL (65-115); Osmolality Calculated 280 mOsm/kg (285-295); Sodium 136 mmol/L (136-145); Total Bilirubin 0.3 mg/dL (0.15-1.2); Total Protein 6.6 g/dL (6.6-8.7)
[2024-07-08 11:21] LABS: Anion Gap 19.1 (5-19); Potassium 4.1 mmol/L (3.5-5.1)
[2024-07-08] MEDS: sodium chloride 0.9% 1,000 ML 999 ML IV (11:43)
[2024-07-08] MEDS: methylPREDNISolone sod succ 125 mg/2 mL INJ IVP (11:43)
[2024-07-08 11:45] VITALS: PULSE 81; RESP 18; O2SAT 93
[2024-07-08 11:51] LABS: Lipase 41 U/L (13-60)
[2024-07-08 12:49] VITALS: BP 116/69; PULSE 90; O2SAT 96
[2024-07-08 13:06] LABS: Lactic Sepsis W/Reflex 1.5 mmol/L (0.5-2.2)
[2024-07-08] MEDS: iohexol 350 mg/mL 500 mL Btl (per mL) IV (13:08)
[2024-07-08 13:52] VITALS: BP 115/73; PULSE 78; O2SAT 97
== END 2024-07-08 13:57 | disposition home or self-care (01) ==
PROVIDERS: Emergency Provider Family Medicine; PCP Family Medicine
DX: K50.90 Crohn's disease, unspecified, without complications (principal); F17.210 Nicotine dependence, cigarettes, uncomplicated
CPT/HCPCS: 36415; 74177; 80053; 83605; 83690; 84702; 85025; 96374; 99285; J2919; J7030